=== PATIENT | female | born 1975 | race African-American/Black ===

== ENCOUNTER 2019-10-17 10:21 | Emergency (ER) | payer OTHER ==
[~2019-10-17] VITALS: Ht 162.6 cm; Wt 94.9 kg
--- OUTSIDE RECORDS SUMMARY | 2019-10-17 10:24 | XMS REPORT ---
Author Author Toma Mckeon [facility] eClinicalWorks Address Unknown Phone Unavailable Care Team Providers Care Dramatic Director Name Role Phone Toma Mckeon CP Unavailable Allergies, Adverse Reactions, Alerts Substance Reaction Event Type N.K.D.A. Info Not Available Non Drug Allergy Problems Problem Type Condition Code Onset Dates Condition Status Assessment Current smoker F17.200 Active Assessment Encounter for smoking cessation counseling Z71.6 Active Assessment HLD (hyperlipidemia) E78.5 Active Assessment Anemia, unspecified type D64.9 Active Assessment Vitamin D deficiency E55.9 Active Assessment BMI 37.0-37.9, adult Z68.37 Active Assessment Diabetic neuropathy E11.40 Active Assessment Uncontrolled type 2 diabetes mellitus with hyperglycemia E11.65 Active Assessment Bilateral edema of lower extremity R60.0 Active Problem Malignant neoplasm of unspecified site of unspecified female breast C50.919 Active Problem Screening for STD (sexually transmitted disease) Z11.3 Active Problem Encounter for gynecological examination (general) (routine) without abnormal findings Z01.419 Active Problem Major depressive disorder with single episode, remission status unspecified F32.9 Active Problem Acute vaginitis N76.0 Active Problem Fracture T14.8 Active Problem BMI 37.0-37.9, adult Z68.37 Active Problem Uncontrolled type 2 diabetes mellitus with hyperglycemia E11.65 Active Problem Vitamin D deficiency E55.9 Active Problem Personal history of malignant neoplasm of breast Z85.3 Active Problem Type 2 diabetes mellitus without complication, unspecified residential insulin use status E11.9 Active Problem Bilateral edema of lower extremity R60.0 Active Problem Obesity (BMI 30-39.9) E66.9 Active Problem Body mass index (BMI) 35.0-35.9, adult Z68.35 Active Problem Right leg pain M79.604 Active Problem Anemia, unspecified type D64.9 Active Problem Encounter for smoking cessation counseling Z71.6 Active Problem HLD (hyperlipidemia) E78.5 Active Problem Current smoker F17.200 Active Problem Depression F32.9 Active Problem Dietary noncompliance Z91.11 Active Problem Encounter for screening for malignant neoplasm of cervix Z12.4 Active Problem Screening for HIV (human immunodeficiency virus) Z11.4 Active Problem Diabetic neuropathy E11.40 Active Problem Breast mass, right N63 Active Medications Medication Code System Code Instructions Start Date End Date Status Dosage Flagyl [facility] [address]-22 500 MG Orally twice a day Apr 23, 2018 Active 1 tablet Paxil [facility] [address]-65 20 MG Orally Once a day February 07, 2018 Active 1 tablet in the morning Pioglitazone HCl [facility] [address]-44 45 MG Orally Once a day January 11, 2019 Active 1 tablet Januvia [facility] [address]-78 50 MG Orally twice a day January 11, 2019 Active 1 tablet Atorvastatin Calcium [facility] [address]-45 40 MG Orally Once a day Active 1 tablet Lisinopril [facility] [address]-07 2.5 MG Orally Once a day Active 1 tablet GlipiZIDE [facility] [address]-90 10 MG Orally ever morning with breakfast Inactive 1 tablet Tamiflu [facility] [address]-52 75 MG Orally twice a day Aug 22, 2017 Active 1 tablet MetroGel-Vaginal [facility] [address]-04 0.75 % Vaginal Once a day Aug 29, 2017 Active 1 application at bedtime Insulin Pen Needle [facility] 0 31G X 5 MM capillary stick twice a day Active as directed Gabapentin [facility] [address]-45 300 MG Orally three times a day Active 1 capsule Vitamin D3 [facility] [address] 07196 UNIT Orally once a week January 11, 2019 Active as directed NovoLog Flexpen [facility] [address]-63 100 UNIT/ML Subcutaneous twice a day Active 20 unit in am and 10 units in pm Lantus SoloStar [facility] [address]-53 100 UNIT/ML Subcutaneous once a day January 11, 2019 Active 15 units Results No Known Results Summary Purpose eClinicalWorks Submission
--- OUTSIDE RECORDS SUMMARY | 2019-10-17 10:24 | XMS REPORT ---
Author Author Mihaela Verma Organization eClinicalWorks Address Unknown Phone Unavailable Care Team Providers Care Auto Motor Mechanic Name Role Phone Mihaela Verma CP Unavailable Allergies No Known Allergies Problems Problem Type Condition Code Onset Dates Condition Status Problem Breast mass, right N63 Active Problem Screening for HIV (human immunodeficiency virus) Z11.4 Active Problem Encounter for screening for malignant neoplasm of cervix Z12.4 Active Problem Right leg pain M79.604 Active Problem Fracture T14.8 Active Problem Body mass index (BMI) 35.0-35.9, adult Z68.35 Active Problem Encounter for gynecological examination (general) (routine) without abnormal findings Z01.419 Active Problem Screening for STD (sexually transmitted disease) Z11.3 Active Problem BMI 37.0-37.9, adult Z68.37 Active Problem Acute vaginitis N76.0 Active Problem Obesity (BMI 30-39.9) E66.9 Active Problem Type 2 diabetes mellitus without complication, unspecified assistant terminal manager insulin use status E11.9 Active Problem Malignant neoplasm of unspecified site of unspecified female breast C50.919 Active Problem Major depressive disorder with single episode, remission status unspecified F32.9 Active Problem Dietary noncompliance Z91.11 Active Problem HLD (hyperlipidemia) E78.5 Active Problem Personal history of malignant neoplasm of breast Z85.3 Active Problem Current smoker F17.200 Active Problem Depression F32.9 Active Problem Diabetic neuropathy E11.40 Active Medications No Known Medications Results No Known Results Summary Purpose eClinicalWorks Submission
--- OUTSIDE RECORDS SUMMARY | 2019-10-17 10:24 | XMS REPORT ---
Author Author Mihaela Verma eClinical[employer] Address Unknown Phone Unavailable Care Team Providers Care Biophysics Professor Name Role Phone Mihaela Verma Unavailable Allergies, Adverse Reactions, Alerts Substance Reaction Event Type N.K.D.A. Info Not Available Non Drug Allergy Problems Problem Type Condition Code Onset Dates Condition Status Assessment Screening for thyroid disorder Z13.29 Active Assessment Other fatigue R53.83 Active Assessment Diabetic neuropathy E11.40 Active Problem Current smoker F17.200 Active Problem Diabetic neuropathy E11.40 Active Assessment Body mass index (BMI) 35.0-35.9, adult Z68.35 Active Problem Breast mass, right N63 Active Problem Screening for HIV (human immunodeficiency virus) Z11.4 Active Problem Encounter for screening for malignant neoplasm of cervix Z12.4 Active Problem Right leg pain M79.604 Active Problem Fracture T14.8 Active Assessment Type 2 diabetes mellitus without complication, unspecified intermodal dispatcher insulin use status E11.9 Active Assessment HLD (hyperlipidemia) E78.5 Active Problem Body mass index (BMI) 35.0-35.9, adult Z68.35 Active Assessment Noncompliance with medication regimen Z91.14 Active Problem Encounter for gynecological examination (general) (routine) without abnormal findings Z01.419 Active Problem Screening for STD (sexually transmitted disease) Z11.3 Active Problem BMI 37.0-37.9, adult Z68.37 Active Problem Acute vaginitis N76.0 Active Problem Obesity (BMI 30-39.9) E66.9 Active Problem Type 2 diabetes mellitus without complication, unspecified residential insulin use status E11.9 Active Problem Malignant neoplasm of unspecified site of unspecified female breast C50.919 Active Problem Major depressive disorder with single episode, remission status unspecified F32.9 Active Problem Dietary noncompliance Z91.11 Active Problem HLD (hyperlipidemia) E78.5 Active Problem Personal history of malignant neoplasm of breast Z85.3 Active Problem Depression F32.9 Active Medications Medication Code System Code Instructions Start Date End Date Status Dosage Tamiflu NDC [address]-27 75 MG Orally twice a day Aug 22, 2017 Active 1 tablet GlipiZIDE [facility] [address]-06 10 MG Orally ever morning with breakfast Active 1 tablet Atorvastatin Calcium [facility] [address]-72 40 MG Orally Once a day Active 1 tablet Lisinopril [facility] [address]-66 2.5 MG Orally Once a day Active 1 tablet MetroGel-Vaginal [facility] [address]-82 0.75 % Vaginal Once a day Aug 29, 2017 Active 1 application at bedtime Gabapentin [facility] [address]-12 300 MG Orally three times a day Active 1 capsule Paxil [facility] [address]-34 20 MG Orally Once a day February 07, 2018 Active 1 tablet in the morning Flagyl [facility] [address]-23 500 MG Orally twice a day Apr 23, 2018 Active 1 tablet Insulin Pen Needle [facility] 0 31G X 5 MM twice a day Active as directed NovoLog Flexpen [facility] [address]-95 100 UNIT/ML Subcutaneous twice a day Active 20 unit in am and 10 units in pm Results No Known Results Summary Purpose eClinicalWorks Submission
--- OUTSIDE RECORDS SUMMARY | 2019-10-17 10:24 | XMS REPORT ---
Author Author Corina Braun Organization eClinicalWorks Address Unknown Phone Unavailable Care Team Providers Care Rugby League Footballer Name Role Phone Corina Braun CP Unavailable Allergies No Known Allergies Problems Problem Type Condition Code Onset Dates Condition Status Assessment Patient left without being seen Z53.21 Active Problem Malignant neoplasm of unspecified site of unspecified female breast C50.919 Active Problem Major depressive disorder with single episode, remission status unspecified F32.9 Active Problem Encounter for gynecological examination (general) (routine) without abnormal findings Z01.419 Active Problem Acute vaginitis N76.0 Active Problem Obesity (BMI 30-39.9) E66.9 Active Problem BMI 37.0-37.9, adult Z68.37 Active Problem Right leg pain M79.604 Active Problem Fracture T14.8 Active Problem Bilateral edema of lower extremity R60.0 Active Problem Uncontrolled type 2 diabetes mellitus with hyperglycemia E11.65 Active Problem Depression F32.9 Active Problem Personal history of malignant neoplasm of breast Z85.3 Active Problem Patient left without being seen Z53.21 Active Problem Type 2 diabetes mellitus without complication, unspecified shelter insulin use status E11.9 Active Problem Encounter for smoking cessation counseling Z71.6 Active Problem Body mass index (BMI) 35.0-35.9, adult Z68.35 Active Problem Vitamin D deficiency E55.9 Active Problem Anemia, unspecified type D64.9 Active Problem Current smoker F17.200 Active Problem Diabetic neuropathy E11.40 Active Problem Dietary noncompliance Z91.11 Active Problem HLD (hyperlipidemia) E78.5 Active Problem Screening for HIV (human immunodeficiency virus) Z11.4 Active Problem Screening for STD (sexually transmitted disease) Z11.3 Active Problem Breast mass, right N63 Active Problem Encounter for screening for malignant neoplasm of cervix Z12.4 Active Medications Medication Code System Code Instructions Start Date End Date Status Dosage MetroGel-Vaginal [facility] [address]-05 0.75 % Vaginal Once a day Aug 29, 2017 Active 1 application at bedtime Tamiflu [facility] [address]-59 75 MG Orally twice a day Aug 22, 2017 Active 1 tablet Vitamin D3 [facility] 03[address]16 38299 UNIT Orally once a week January 11, 2019 Active as directed Atorvastatin Calcium [facility] [address]-12 40 MG Orally Once a day Active 1 tablet Pioglitazone HCl [facility] [address]-19 45 MG Orally Once a day January 11, 2019 Active 1 tablet Flagyl [facility] [address]-41 500 MG Orally twice a day Apr 23, 2018 Active 1 tablet Paxil [facility] [address]-89 20 MG Orally Once a day February 07, 2018 Active 1 tablet in the morning Lantus SoloStar [facility] [address]-26 100 UNIT/ML Subcutaneous once a day January 11, 2019 Active 15 units Lisinopril [facility] [address]-89 2.5 MG Orally Once a day Active 1 tablet Gabapentin [facility] [address]-45 300 MG Orally three times a day Active 1 capsule Insulin Pen Needle [facility] 0 31G X 5 MM capillary stick twice a day Active as directed Januvia [facility] [address]-63 50 MG Orally twice a day January 11, 2019 Active 1 tablet NovoLog Flexpen [facility] [address]-20 100 UNIT/ML Subcutaneous twice a day Active 20 unit in am and 10 units in pm Results No Known Results Summary Purpose eClinicalWorks Submission
--- OUTSIDE RECORDS SUMMARY | 2019-10-17 10:24 | XMS REPORT ---
Author Author Katerin Hilario eClinicalWorks Address Unknown Phone Unavailable Care Team Providers Care Account Officer Name Role Phone Katerin Hilario CP Unavailable Allergies, Adverse Reactions, Alerts Substance Reaction Event Type N.K.D.A. Info Not Available Non Drug Allergy Problems Problem Type Condition Code Onset Dates Condition Status Problem Depression F32.9 Active Problem HLD (hyperlipidemia) E78.5 Active Problem Dietary noncompliance Z91.11 Active Problem Screening for STD (sexually transmitted disease) Z11.3 Active Assessment Malignant neoplasm of unspecified site of unspecified female breast C50.919 Active Problem Screening for HIV (human immunodeficiency virus) Z11.4 Active Problem Encounter for gynecological examination (general) (routine) without abnormal findings Z01.419 Active Problem Diabetic neuropathy E11.40 Active Problem Current smoker F17.200 Active Problem Encounter for screening for malignant neoplasm of cervix Z12.4 Active Problem Breast mass, right N63 Active Assessment Screening for HIV (human immunodeficiency virus) Z11.4 Active Assessment Screening for STD (sexually transmitted disease) Z11.3 Active Assessment Breast mass, right N63 Active Assessment Encounter for screening for malignant neoplasm of cervix Z12.4 Active Problem Major depressive disorder with single episode, remission status unspecified F32.9 Active Problem Obesity (BMI 30-39.9) E66.9 Active Assessment Encounter for gynecological examination (general) (routine) without abnormal findings Z01.419 Active Problem Type 2 diabetes mellitus without complication, unspecified retirement insulin use status E11.9 Active Problem Malignant neoplasm of unspecified site of unspecified female breast C50.919 Active Problem Personal history of malignant neoplasm of breast Z85.3 Active Medications Medication Code System Code Instructions Start Date End Date Status Dosage Insulin Pen Needle [facility] 0 31G X 5 MM twice [place] [address]-98 20 MG Orally Once a day February 07, 2018 Active 1 tablet in [place] [address]-11 0.75 % Vaginal Once a day Aug 29, 2017 Active 1 application at bedtime Lisinopril [facility] [address]-49 2.5 MG Orally Once a day February 07, 2018 Active 1 tablet GlipiZIDE [facility] [address]-97 10 MG Orally ever morning with breakfast Active 1 tablet Atorvastatin Calcium [facility] [address]-86 40 MG Orally Once a day February 07, 2018 Active 1 tablet Gabapentin [facility] [address]-07 300 MG Orally twice a day Active 1 capsule Tamiflu [facility] [address]-50 75 MG Orally twice a day Aug 22, 2017 Active 1 tablet NovoLog Flexpen [facility] [address]-13 100 UNIT/ML Subcutaneous twice a day Active 20 unit in am and 10 units in pm Results No Known Results Summary Purpose eClinicalWorks Submission
--- OUTSIDE RECORDS SUMMARY | 2019-10-17 10:24 | XMS REPORT ---
Author Author Katerin Hilario eClinicalWorks Address Unknown Phone Unavailable Care Team Providers Care Crystal Machining Coordinator Name Role Phone Katerin Hilario CP Unavailable Allergies, Adverse Reactions, Alerts Substance Reaction Event Type N.K.D.A. Info Not Available Non Drug Allergy Problems Problem Type Condition Code Onset Dates Condition Status Problem HLD (hyperlipidemia) E78.5 Active Problem Diabetic neuropathy E11.40 Active Problem Current smoker F17.200 Active Problem Acute vaginitis N76.0 Active Problem Encounter for gynecological examination (general) (routine) without abnormal findings Z01.419 Active Problem BMI 37.0-37.9, adult Z68.37 Active Problem Encounter for screening for malignant neoplasm of cervix Z12.4 Active Problem Breast mass, right N63 Active Problem Screening for STD (sexually transmitted disease) Z11.3 Active Problem Screening for HIV (human immunodeficiency virus) Z11.4 Active Assessment Acute vaginitis N76.0 Active Problem Malignant neoplasm of unspecified site of unspecified female breast C50.919 Active Assessment Major depressive disorder with single episode, remission status unspecified F32.9 Active Assessment BMI 37.0-37.9, adult Z68.37 Active Problem Type 2 diabetes mellitus without complication, unspecified intermediate accountant insulin use status E11.9 Active Problem Personal history of malignant neoplasm of breast Z85.3 Active Problem Major depressive disorder with single episode, remission status unspecified F32.9 Active Problem Depression F32.9 Active Problem Obesity (BMI 30-39.9) E66.9 Active Problem Dietary noncompliance Z91.11 Active Medications Medication Code System Code Instructions Start Date End Date Status Dosage NovoLog Flexpen [facility] [address]-28 100 UNIT/ML Subcutaneous twice a day Active 20 unit in am and 10 units in pm GlipiZIDE [facility] [address]-29 10 MG Orally ever morning with breakfast Active 1 tablet [address]ax[address] [facility] [address]-50 20 MG Orally Once a day February 07, 2018 Active 1 tablet in the morning Atorvastatin Calcium [facility] [address]-28 40 MG Orally Once a day February 07, 2018 Active 1 tablet Flagyl [facility] [address]-97 500 MG Orally twice a day Apr 23, 2018 Active 1 tablet Lisinopril [facility] [address]-06 2.5 MG Orally Once a day February 07, 2018 Active 1 tablet MetroGel-Vaginal [facility] [address]-68 0.75 % Vaginal Once a day Aug 29, 2017 Active 1 application at bedtime Tamiflu [facility] [address]-84 75 MG Orally twice a day Aug 22, 2017 Active 1 tablet Gabapentin [facility] [address]-37 300 MG Orally twice a day Active 1 capsule Insulin Pen Needle [facility] 0 31G X 5 MM twice a day Active as directed Results No Known Results Summary Purpose eClinicalWorks Submission
--- OUTSIDE RECORDS SUMMARY | 2019-10-17 10:24 | XMS REPORT ---
Author Author Corina Braun eClinicalWorks Address Unknown Phone Unavailable Care Team Providers Care Oracle Ebs Developer Name Role Phone Corina Braun CP Unavailable Allergies, Adverse Reactions, Alerts Substance Reaction Event Type N.K.D.A. Info Not Available Non Drug Allergy Problems Problem Type Condition Code Onset Dates Condition Status Problem Diabetic neuropathy E11.40 Active Problem Encounter for screening for malignant neoplasm of cervix Z12.4 Active Problem Breast mass, right N63 Active Problem Fracture T14.8 Active Assessment Right leg pain M79.604 Active Problem BMI 37.0-37.9, adult Z68.37 Active Problem Right leg pain M79.604 Active Problem Screening for STD (sexually transmitted disease) Z11.3 Active Problem Screening for HIV (human immunodeficiency virus) Z11.4 Active Problem Acute vaginitis N76.0 Active Problem Encounter for gynecological examination (general) (routine) without abnormal findings Z01.419 Active Problem Major depressive disorder with single episode, remission status unspecified F32.9 Active Problem Obesity (BMI 30-39.9) E66.9 Active Assessment Fracture T14.8 Active Problem Malignant neoplasm of unspecified site of unspecified female breast C50.919 Active Problem Depression F32.9 Active Problem Dietary noncompliance Z91.11 Active Problem Type 2 diabetes mellitus without complication, unspecified termite 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 insulin use status E11.9 Active Problem HLD (hyperlipidemia) E78.5 Active Problem Personal history of malignant neoplasm of breast Z85.3 Active Problem Current smoker F17.200 Active Medications Medication Code System Code Instructions Start Date End Date Status Dosage GlipiZIDE [facility] [address]-66 10 MG Orally ever morning with breakfast Active 1 tablet Lisinopril [facility] [address]-94 2.5 MG Orally Once a day February 07, 2018 Active 1 tablet MetroGel-Vaginal [facility] [address]-08 0.75 % Vaginal Once a day Aug 29, 2017 Active 1 application at bedtime Paxil [facility] [address]-30 20 MG Orally Once a day February 07, 2018 Active 1 tablet in the morning Gabapentin [facility] [address]-43 300 MG Orally twice a day Active 1 capsule NovoLog Flexpen [facility] [address]-27 100 UNIT/ML Subcutaneous twice a day Active 20 unit in am and 10 units in pm Tamiflu [facility] [address]-36 75 MG Orally twice a day Aug 22, 2017 Active 1 tablet Flagyl [facility] [address]-11 500 MG Orally twice a day Apr 23, 2018 Active 1 tablet Atorvastatin Calcium [facility] [address]-71 40 MG Orally Once a day February 07, 2018 Active 1 tablet Insulin Pen Needle [facility] 0 31G X 5 MM twice a day Active as directed Results No Known Results Summary Purpose eClinicalWorks Submission
--- OUTSIDE RECORDS SUMMARY | 2019-10-17 10:24 | XMS REPORT ---
Author Author [facility] Address Unknown Phone Unavailable Care Team Providers Care Flue Lining Dipper Name Role Phone ADILIA NAOMY Unavailable Unavailable Souleymane REA Unavailable Unavailable ISAÍAS ZAPATA Unavailable Unavailable Maral CARRILLO Unavailable Unavailable KATHERYN RICO Unavailable Unavailable Payers Payer Name Policy Type Policy Number Effective Date Expiration Date Problems This patient has no known problems. Allergies, Adverse Reactions, Alerts Allergy Name Allergy Type Status Severity Reaction(s) Onset Date Inactive Date Treating Clinician Comments No Known Allergies DA Active U 2018-10-05 00:00:00 No Known Allergies DA Active U 2015-04-08 00:00:00 Medications This patient has no known medications. Encounters Start Date/Time End Date/Time Encounter Type Admission Type Attending Clinicians Care Facility Care Department Encounter ID 2019-01-01 23:35:00 2019-01-01 19:18:00 Inpatient E [facility] [id number] Results Test Description Test Time Test Comments Text Results Atomic Results Result Comments - CT ABD PELVIS W/CONT 2019-10-11 04:13:00 Name: NICOLE SPRING [facility] : 1975 Age/S: 44 / F [address] Unit #: [id number] Loc: [place] [address] Phys: Colin Perry MD Acct: [id number] Dis Date: Status: REG ER PHONE #: [phone] Exam Date: 10/11/2019 0355 FAX #: Reason: abd pain EXAMS: CPT: [id number] CT ABD PELVIS W/CONT 35545 LOCATION: Q15 HISTORY: 44-year-old female who presents with abdominal pain. COMMENT: Axial CT imaging of this patient's abdomen and pelvis was obtained with IV contrast. Coronal and sagittal soft tissue reconstructions were included. An older examination obtained December 13, 2016 is available for comparison. CONTRAST: 100 mL of Isovue-300 nonionic contrast was injected into the left antecubital vein. The serum creatinine level was 0.9 and the estimated GFR was greater than 60 mL per minute. One or more of the following dose reduction techniques are used: Automated exposure control, adjustment of the mA and/or kV according the patient size, and/or utilization of iterative reconstruction technique. DLP: 920.10 mGy-cm FINDINGS: The lung bases are clear. The cardiac silhouette is unremarkable. The liver, spleen, pancreas, adrenal glands, and gallbladder are unremarkable. The left renal collecting system and ureter demonstrate evidence of pelvocaliectasis with hydroureter. No filling defect is seen in the ureter but the distention extends to the urinary bladder. This finding is not sig nificantly changed from the previous study. No cortical masses are seen in either kidney and no cysts are present. The right renal collecting system is unremarkable. The upper intestinal tract and the small intestine are unremarkable. A normal-appearing appendix is seen. The colon is unremarkable. No ascites is seen and no adenopathy is present. In the pelvis the urinary bladder is unremarkable. The uterus is seen. PAGE 1 Signed Report (CONTINUED) Name: NICOLE SPRING [facility] : 1975 Age/S: 44 / F [address] Unit #: [id number] Loc: [place] [address] Phys: Coiln Perry MD Acct: [id number] Dis Date: Status: REG ER PHONE #: [phone] Exam Date: 10/11/2019 4278 FAX #: Reason: abd pain EXAMS: CPT: [id number] CT ABD PELVIS W/CONT 02498 <Continued> The ovaries are not clearly seen. The vascular anatomy is unremarkable. The musculoskeletal anatomy is unre markable. IMPRESSION: There are no acute findings seen in this patient's abdomen or pelvis on this CT examination. Please see above for details. at 0413 Reported and signed by: Jan Alexander M.D. CC: Colin Perry MD Technologist:RT Orestes(R)(CT) CTDI: DLP: Trnscb Date/Time: 10/11/2019 (0413) [email or web address] Orig Print D/T: S: 10/11/2019 (0239) PAGE 2 Signed Report UR HCG QUAL 2019-10-11 03:19:00 UR HCG QUAL (test code=HCGQLU) NEGATIVE NEGATIVE - DUP VEIN UNI [id number] 03:03:00 Name: NICOLE SPRING [facility] : 1975 Age/S: 44 / F [address] [address] Unit #: [id number] Loc: [place] [address] Phys: Colin Perry MD Acct: [id number] Dis Date: Status: REG ER PHONE #: [phone] Exam Date: 10/11/2019 0232 FAX #: Reason: Right leg pain; Prior h/o DVT EXAMS: CPT: [id number] [place] [address] LOCATION: Q15 HISTORY: 44-year-old female who presents with right leg pain. The patient has a history of prior deep venous thrombosis. COMMENT: Real-time ultrasound imaging of the venous anatomy in this patient's right lower extremity was obtained with grayscale, color-flow, and Doppler waveform imaging techniques. The common femoral vein, superficial femoral vein, popliteal vein, proximal and distal posterior tibial vein were included in the study. FINDINGS: The anatomy exhibits normal compressibility on the grayscale study. No defects are observed in the color flow study. Appropriate waveform response is are noted on the Doppler study during quiet respiration and augmentation maneuvers. IMPRESSION: There is no sonographic evidence of venous thrombosis in this patient's right leg. at 0303 Reported and signed by: Jan Alexander M.D. CC: Colin Perry MD Technologist: RT Марина(R),RDMS(AB) Trnscb Date/Time: 10/11/2019 (302) [email or web address] PAGE 1 Signed Report Name: NICOLE SPRING : 1975 Age/S: 44 / F [address] [address] #: [id number] Loc: [place] [address] Phys: Colin Perry MD Acct: [id number] Dis Date: Status: REG ER PHONE #: [phone] Exam Date: 10/11/2019 0232 FAX #: Reason: Right leg pain; Prior h/o DVT EXAMS: CPT: [id number] [place] [address] <Continued> Orig Print D/T: S: 10/11/2019 (305) Probe: PAGE 2 Signed Report BASIC METABOLIC [id number] 02:41:00* Test Item Value Reference Range Comments SODIUM (test code=NA) 137 mmol/L 134-147 POTASSIUM (test code=K) 3.6 mmol/L 3.4-5.0 CHLORIDE (test code=CL) 106 mmol/L 100-108 CARBON DIOXIDE (test code=CO2) 23 mmol/L 21-32 ANION GAP (test code=GAP) 8.0 GAP calc 4.0-15.0 GLUCOSE (test code=GLU) 342 MG/DL 70-110 BLOOD UREA NITROGEN (test code=BUN) 9 MG/DL 7-18 GLOMERULAR FILTRATION RATE (test code=GFR) >=60 max estimate estGFR >60 CREATININE (test code=CREAT) 0.9 MG/DL 0.6-1.0 CALCIUM (test code=CA) 8.8 MG/DL 8.5-10.1 HEPATIC FUNCTION [id number] 02:41:00* Test Item Value Reference Range Comments TOTAL PROTEIN (test code=PROT) 7.6 G/DL 6.4-8.2 ALBUMIN (test code=ALB) 3.5 G/DL 3.4-5.0 BILIRUBIN TOTAL (test code=BILT) 0.20 MG/DL 0.2-1.2 BILIRUBIN DIRECT (test code=BILD) < 0.10 MG/DL 0.00-0.30 BILIRUBIN INDIRECT (test code=BILIND) 0.10 MG/DL 0.2-1.2 SGOT/AST (test code=AST) 7 Unit/L 15-37 SGPT/ALT (test code=ALT) 17 Unit/L 12-78 ALKALINE PHOSPHATASE TOTAL (test code=ALKP) 111 Unit/L 45-117 [id number] 02:41:00* Test Item Value Reference Range Comments LIPASE (test code=LIP) 127 Unit/L 114-286 UA RFLX MICR CULT IF [id number] 02:30:00* Test Item Value Reference Range Comments UA COLOR (test code=COLU) YELLOW discript YEL/STRAW UA APPEARANCE (test code=APPU) CLEAR discript CLEAR UA GLUCOSE DIPSTICK (test code=DGLUU) 3+ mg/dL NEG UA BILIRUBIN DIPSTICK (test code=BILU) NEGATIVE mg/dL NEG UA KETONE DIPSTICK (test code=KETU) NEGATIVE mg/dL NEG UA SPECIFIC GRAVITY (test code=SGU) >=1.030 SG 1.005-1.030 UA BLOOD DIPSTICK (test code=ADAM) NEGATIVE mg/DL NEG UA PH DIPSTICK (test code=MARJORIE) <=5.0 pH UNITS 5.0-7.0 UA PROTEIN DIPSTICK (test code=PROU) TRACE mg/dL NEG UA UROBILINIOGEN DIPSTICK (test code=URO) 0.2 mg/dL <2.0 UA NITRITE DIPSTICK (test code=YAZMIN) NEGATIVE SCREEN NEG UA LEUKOCYTE ESTERASE DIPSTICK (test code=LEUU) NEGATIVE Leuk/mcL NEGATIVE UA WBC (test code=WBCU) 0-1 #WBC/HPF 0-3 UA RBC (test code=RBCU) 0-1 #RBC/HPF 0-3 UA BACTERIA (test code=BACU) NONE SEEN /HPF NONE-TRACE UA SQUAMOUS CELLS (test code=SQU) 1+ /HPF NONE UA CULTURE NEEDED? (test code=UACULT) NO, WBC<10 Criteria Culture CHK SOURCE OF URINE: CLEAN CATCHIndication for culture: Flank PainBASIC METABOLIC [id number] 02:22:00* Test Item Value Reference Range Comments SODIUM (test code=NA) 137 mmol/L 134-147 POTASSIUM (test code=K) 3.6 mmol/L 3.4-5.0 CHLORIDE (test code=CL) 106 mmol/L 100-108 CARBON DIOXIDE (test code=CO2) 23 mmol/L 21-32 ANION GAP (test code=GAP) 8.0 GAP calc 4.0-15.0 GLUCOSE (test code=GLU) 342 MG/DL 70-110 BLOOD UREA NITROGEN (test code=BUN) 9 MG/DL 7-18 GLOMERULAR FILTRATION RATE (test code=GFR) estGFR >60 CREATININE (test code=CREAT) MG/DL 0.6-1.0 CALCIUM (test code=CA) 8.8 MG/DL 8.5-10.1 HEPATIC FUNCTION [id number] 02:22:00* Test Item Value Reference Range Comments TOTAL PROTEIN (test code=PROT) G/DL 6.4-8.2 ALBUMIN (test code=ALB) G/DL 3.4-5.0 BILIRUBIN TOTAL (test code=BILT) MG/DL 0.2-1.2 BILIRUBIN DIRECT (test code=BILD) MG/DL 0.00-0.30 BILIRUBIN INDIRECT (test code=BILIND) MG/DL 0.2-1.2 SGOT/AST (test code=AST) Unit/L 15-37 SGPT/ALT (test code=ALT) Unit/L 12-78 ALKALINE PHOSPHATASE TOTAL (test code=ALKP) Unit/L 45-117 [id number] 02:22:00* Test Item Value Reference Range Comments LIPASE (test code=LIP) 127 Unit/L 114-286 CBC W/AUTO [id number] 02:11:00* Test Item Value Reference Range Comments WHITE BLOOD CELL (test code=WBC) 7.4 K/mm3 3.5-11.0 RED BLOOD CELL (test code=RBC) 4.98 M/mm3 4.70-6.10 HEMOGLOBIN (test code=HGB) 11.5 G/DL 10.4-14.9 HEMATOCRIT (test code=HCT) 36.9 % 31.5-44.1 MEAN CELL VOLUME (test code=MCV) 74.1 Fl 84.5-98.6 MEAN CELL HGB (test code=MCH) 23.1 pg 27.0-34.2 MEAN CELL HGB CONCETRATION (test code=MCHC) 31.2 G/DL 31.5-34.0 RED CELL DISTRIBUTION WIDTH (test code=RDW) 13.3 SD 11.5-14.5 PLATELET COUNT (test code=PLT) 174.0 K/mm3 150-450 MEAN PLATELET VOLUME (test code=MPV) 12.00 fL 7.0-10.5 NEUTROPHIL % (test code=NT%) 66.8 % 40-76 LYMPHOCYTE % (test code=LY%) 24.3 % 20.5-51.1 MONOCYTE % (test code=MO%) 6.8 % 1.7-9.3 EOSINOPHIL % (test code=EO%) 2.0 % 0.0-6.0 BASOPHIL % (test code=BA%) 0.1 % 0.0-2.0 NEUTROPHIL # (test code=NT#) 4.93 K/mm3 1.8-7.6 LYMPHOCYTE # (test code=LY#) 1.8 K/mm3 0.6-3.2 MONOCYTE # (test code=MO#) 0.5 K/mm3 0.3-1.1 EOSINOPHIL # (test code=EO#) 0.2 K/mm3 0.0-0.4 BASOPHIL # (test code=BA#) 0.0 K/mm3 0.0-0.1 MANUAL DIFF REQUIRED (test code=MDIFF) NO DIFF/SCN CRITERIA UA RFLX MICR CULT IF [id number] 02:11:00* Test Item Value Reference Range Comments UA COLOR (test code=COLU) YELLOW discript YEL/STRAW UA APPEARANCE (test code=APPU) CLEAR discript CLEAR UA GLUCOSE DIPSTICK (test code=DGLUU) 3+ mg/dL NEG UA BILIRUBIN DIPSTICK (test code=BILU) NEGATIVE mg/dL NEG UA KETONE DIPSTICK (test code=KETU) NEGATIVE mg/dL NEG UA SPECIFIC GRAVITY (test code=SGU) >=1.030 SG 1.005-1.030 UA BLOOD DIPSTICK (test code=ADAM) NEGATIVE mg/DL NEG UA PH DIPSTICK (test code=MARJORIE) <=5.0 pH UNITS 5.0-7.0 UA PROTEIN DIPSTICK (test code=PROU) TRACE mg/dL NEG UA UROBILINIOGEN DIPSTICK (test code=URO) 0.2 mg/dL <2.0 UA NITRITE DIPSTICK (test code=YAZMIN) NEGATIVE SCREEN NEG UA LEUKOCYTE ESTERASE DIPSTICK (test code=LEUU) NEGATIVE Leuk/mcL NEGATIVE UA CULTURE NEEDED? (test code=UACULT) Criteria Culture CHK SOURCE OF URINE: CLEAN CATCHIndication for culture: Flank PainCT, ABDOMEN 2019-08-11 12:59:00FINAL REPORT TECHNIQUE: CT of the abdomen and pelvis WITH intravenous contrast and WITHOUT oral contrast. Dose modulation, iterative reconstruction, and/or weight-based adjustment of the mA/kV was utilized to reduce the radiation dose to as low as reasonably achievable. INDICATION: LLQ pain, back pain. COMPARISON: CTs dating back to 06/01/2018. FINDINGS: LOWER THORAX: Bibasilar subsegmental atelectasis. HEPATOBILIARY: No focal hepatic lesions. Gallbladder is unremarkable. No biliary ductal dilatation.SPLEEN: No splenomegaly.PANCREAS: No focal masses or ductal dilatation. ADRENALS: No adrenal nodules.KIDNEYS/URETERS: Mild left hydronephrosis. There is hydroureter to the level of the cervix. No stones or masses.PELVIC ORGANS/BLADDER: The urinary bladder wall is diffusely thickened. There is gas in the endometrium. PERITONEUM/RETROPERITONEUM: No free air or fluid.LYMPH NODES: No lymphadenopathy.VESSELS: Unremarkable. GI TRACT: No distention or wall thickening. The appendix normal. BONES AND SOFT TISSUES: Prior midline pelvic incision. There are some linear opacity in this area which is most likely due to scar. Scar endometriosis is also possible. IMPRESSION: 1. There is mild left hydronephrosis with a transition of the ureter at the level o f the cervix. This is most likely related to prior surgery or endometriosis with scar in this region. Cervical cancer with invasion of the left distal ureter is considered unlikely but possible. A gynecologic consultation is recommended for further evaluation. If further imaging is necessary, consider MRI. 2.There is a fairly thick scar at the site of a prior midline pelvic incision. Scar endometr iosis should be considered. 3.The diffuse thickening of the urinary bladder wall is nonspecific but could be due to cystitis. 4.The gas in the endometrium is no nspecific. This could be due to prior instrumentation, recent sexual intercourse , or endometritis. Signed: Jayesh Beebe MDReport Verified Date/Time: 08/11/2019 1 2:59:54 Reading Location: [facility] C013Y CT Body Reading Room U/S, PELVIS, WITH ENDOVAG AND [id number] 12:22:00Reason for exam:->BACK PAINReason for exam:->L pelvic painFINAL REPORT EXAM: Pelvic Ultrasound HISTORY: BACK PAINL pelvic pain COMPARISON: None. TECHNIQUE: Transabdominal and transvaginal grayscale ultrasound of the pelvis with color and spectral Doppler ultrasound of the ovaries. FINDINGS:UTERUS: The uterus measures 12.8 x 4.3 x 6.4 cm. The endometrial echo complex measures 0.4 cm, within normal limits. There is shadowing within the uterus corresponds to air seen on concurrent CTA. OVARIES/ADNEXA: Not visualized due to patient body habitus. Left adnexum 4.3 x 1.3 x 1.5 cm anechoic area. PELVIS: No free fluid. IMPRESSION: 1. Intrauterine air. Recommend correlation with history.2. Indeterminate left adnexum 4.3 cm anechoic area could represent hydrosalpinx in the appropriate clinical scenario. Consider MRI if clinically indicated for further evaluation.3. Ovaries are not visualized. Signed: Valentino Villarreal MDReport Verified Date/Time: 08/11/2019 12:22:23 Reading Location: [facility] C013W Consult Reading Room ALYSIS W/ REFLEX URINE [id number] 11:04:00* Test Item Value Reference Range Comments COLOR (BEAKER) (test iieh=101) Yellow CLARITY (BEAKER) (test jski=222) Clear SPECIFIC GRAVITY UA (BEAKER) (test macr=596) 1.025 1.001-1.035 PH UA (BEAKER) (test hpqi=327) 5.5 5.0-8.0 PROTEIN UA (BEAKER) (test onmn=015) 100 mg/dL Negative GLUCOSE UA (BEAKER) (test xlwn=185) 250 mg/dL Negative KETONES UA (BEAKER) (test efdg=440) Negative Negative BILIRUBIN UA (BEAKER) (test twwd=547) Negative Negative BLOOD UA (BEAKER) (test ouqi=116) Negative Negative NITRITE UA (BEAKER) (test plvt=493) Negative Negative LEUKOCYTE ESTERASE UA (BEAKER) (test ivfs=558) Negative Negative UROBILINOGEN UA (BEAKER) (test rbxc=616) 0.2 mg/dL 0.2-1.0 BACTERIA (BEAKER) (test wsgw=608) Occasional MUCUS (BEAKER) (test ecin=5811) Few RBC UA-MANUAL (BEAKER) (test zhhm=0819) <5 /HPF WBC UA-MANUAL (BEAKER) (test jquh=6734) <5 /HPF SQUAMOUS EPITHELIAL MANUAL (BEAKER) (test orac=6080) <5 /HPF SOURCE(BEAKER) (test djrn=0036) SCREEN, [id number] 11:01:00* Test Item Value Reference Range Comments TEST URINE (BEAKER) (test ydil=013) Negative COMPREHENSIVE METABOLIC [id number] 10:52:00* Test Item Value Reference Range Comments TOTAL PROTEIN (BEAKER) (test noxe=069) 7.5 gm/dL 6.0-8.5 ALBUMIN (BEAKER) (test nark=8096) 3.8 g/dL 3.5-5.0 ALKALINE PHOSPHATASE (BEAKER) (test uyhz=593) 65 U/L 30-115 BILIRUBIN TOTAL (BEAKER) (test zvgp=809) 0.6 mg/dL 0.1-1.2 SODIUM (BEAKER) (test qzxo=943) 135 meq/L 135-148 POTASSIUM (BEAKER) (test cztv=605) 4.7 meq/L 3.6-5.5 CHLORIDE (BEAKER) (test duqm=083) 103 meq/L 98-106 CO2 (BEAKER) (test mttd=220) 26 meq/L 24-32 BLOOD UREA NITROGEN (BEAKER) (test hdgu=698) 11 mg/dL 10-26 CREATININE (BEAKER) (test gwml=651) 0.64 mg/dL 0.50-1.20 GLUCOSE RANDOM (BEAKER) (test aovd=284) 207 mg/dL 70-110 CALCIUM (BEAKER) (test wpmz=002) 8.7 mg/dL 8.5-10.5 AST (SGOT) (BEAKER) (test nnkw=944) 57 U/L 5-40 ALT (SGPT) (BEAKER) (test adqu=486) 28 U/L 5-50 EGFR (BEAKER) (test emts=4904) 122 mL/min/1.73 sq m ESTIMATED GFR IS NOT ACCURATE CREATININE CLEARANCE IN PREDICTING GLOMERULAR FILTRATION RATE. ESTIMATED GFR IS NOT APPLICABLE FOR DIALYSIS PATIENTS. CBC W/PLT COUNT & AUTO [id number] 10:46:00* Test Item Value Reference Range Comments WHITE BLOOD CELL COUNT (BEAKER) (test hajt=526) 2.7 K/ L 4.0-10.0 RED BLOOD CELL COUNT (BEAKER) (test tbqv=919) 4.74 M/ L 4.00-5.00 HEMOGLOBIN (BEAKER) (test uriv=725) 11.1 GM/DL 12.0-15.0 HEMATOCRIT (BEAKER) (test pcgg=858) 34.7 % 36.0-45.0 MEAN CORPUSCULAR VOLUME (BEAKER) (test fobn=894) 73.3 fL 82.0-99.0 MEAN CORPUSCULAR HEMOGLOBIN (BEAKER) (test upkh=911) 23.3 pg 27.0-33.0 MEAN CORPUSCULAR HEMOGLOBIN CONC (BEAKER) (test vcea=688) 31.9 GM/DL 32.0-36.0 RED CELL DISTRIBUTION WIDTH (BEAKER) (test aoxb=339) 15.1 % 10.3-14.2 PLATELET COUNT (BEAKER) (test vqbr=453) 152 K/CU MM 150-430 MEAN PLATELET VOLUME (BEAKER) (test zguy=841) 10.0 fL 6.5-10.5 NEUTROPHILS RELATIVE PERCENT (BEAKER) (test jadn=080) 36 % LYMPHOCYTES RELATIVE PERCENT (BEAKER) (test uxri=044) 50 % MONOCYTES RELATIVE PERCENT (BEAKER) (test bdjc=391) 11 % EOSINOPHILS RELATIVE PERCENT (BEAKER) (test brle=576) 2 % BASOPHILS RELATIVE PERCENT (BEAKER) (test kjuu=198) 1 % NEUTROPHILS ABSOLUTE COUNT (BEAKER) (test vxum=547) 0.99 K/ L 1.80-8.00 LYMPHOCYTES ABSOLUTE COUNT (BEAKER) (test ufmv=670) 1.37 K/ L 1.48-4.50 MONOCYTES ABSOLUTE COUNT (BEAKER) (test nkfl=497) 0.29 K/ L 0.00-1.30 EOSINOPHILS ABSOLUTE COUNT (BEAKER) (test sryh=373) 0.07 K/ L 0.00-0.50 BASOPHILS ABSOLUTE COUNT (BEAKER) (test okof=264) 0.02 K/ L 0.00-0.20 GLUCOSE BEDSIDE [id number] 16:23:00* Test Item Value Reference Range Comments GLUCOSE BEDSIDE TESTING (test code=GLUBED) 154 MG/DL 60-99 - NM MYOCRD SPECT R/S [id number] 14:06:00 Patient Name: NICOLE SPRING Unit No: [id number] EXAMS: CPT CODE: [id number] NM MYOCRD SPECT R/S MULT 07074 Location of dictation: B2 HISTORY:CHEST PAIN TECHNIQUE: 10.6 mCi Tc-99m sestamibi was injected IV at rest. Non-gated SPECT imaging is performed. The patient is stressed with Lexiscan 0.4 mg/ 5 ml. At peak stress, 30.8 mCi Tc-99m sestamibi was injected IV. Gated SPECT imaging and post-processing are accomplished. FINDINGS: Comparison is made to recent chest x-ray which was unremarkable. The left ventricle is normal in size. Homogeneous myocardial perfusion is observed. No significant stress defects suspicious for ischemia or infarct are identified. Likely attenuation artifact of the anterior wall. The computed calculated LVEF is 65 %. Concentric wall motion is identified. No segm ental wall motion abnormality is seen. Quantitative analysis is within nor mal limits. IMPRESSION: 1. Negative for evidence of sign ificant myocardial ischemia or infarct. 2. Normal left ventricu lar ejection fraction and wall motion. at 1406 Reported and signed by : Hue Shetty M.D. CC: Dr. Sb Rebollar; Jazzy Cui MD Technologist: Sonja Monson, RT(N); ... Transcrpt Date/Tm/Trnsp: 05/16/2019 (1406) [place] Orig Print D/T: S: 05/16/2019 (0156) [facility] NAME: NICOLE SPRING [address] [address] PHYS: [place] [address] : 1975 AGE: 44 SEX: F LOC: Z.642 A PHONE #: [phone] EXAM DATE: 05/16/2019 STATUS: ADM IN FAX #: [phone] RADIOLOGY NO: PAGE 1 Signed Report GLUCOSE BEDSIDE [id number] 13:03:00* Test Item Value Reference Range Comments GLUCOSE BEDSIDE TESTING (test code=GLUBED) 147 MG/DL 60-99 GLUCOSE BEDSIDE [id number] 06:34:00* Test Item Value Reference Range Comments GLUCOSE BEDSIDE TESTING (test code=GLUBED) 168 MG/DL 60-99 GLUCOSE BEDSIDE [id number] 21:52:00* Test Item Value Reference Range Comments GLUCOSE BEDSIDE TESTING (test code=GLUBED) 212 MG/DL 60-99 GLUCOSE BEDSIDE [id number] 16:31:00* Test Item Value Reference Range Comments GLUCOSE BEDSIDE TESTING (test code=GLUBED) 242 MG/DL 60-99 [id number] 15:38:00* Test Item Value Reference Range Comments FERRITIN (test code=SHILPA) 65.9 NG/ML 6.24-137 FE W/TOTAL IRON BINDING CAP.2019-05-15 14:40:00* Test Item Value Reference Range Comments SERUM IRON (test code=IRON) 50 MCG/DL 37-170 TOTAL IRON BINDING CAPACITY (test code=TIBC) 267 MCG/DL 265-497 IRON SATURATION (test code=FESAT) 19 % 12-57 FE W/TOTAL IRON BINDING CAP.2019-05-15 14:30:00* Test Item Value Reference Range Comments SERUM IRON (test code=IRON) 50 MCG/DL 37-170 TOTAL IRON BINDING CAPACITY (test code=TIBC) MCG/DL 265-497 IRON SATURATION (test code=FESAT) % 12-57 GLUCOSE BEDSIDE [id number] 11:53:00* Test Item Value Reference Range Comments GLUCOSE BEDSIDE TESTING (test code=GLUBED) 147 MG/DL 60-99 [id number] 09:41:00* Test Item Value Reference Range Comments TROPONIN-I (test code=TROPI) < 0.012 NG/ML 0.012-0.033 GLUCOSE BEDSIDE [id number] 08:12:00* Test Item Value Reference Range Comments GLUCOSE BEDSIDE TESTING (test code=GLUBED) 210 MG/DL 60-99 BASIC METABOLIC [id number] 07:03:00* Test Item Value Reference Range Comments SODIUM (test code=NA) 136 MMOL/L 137-145 POTASSIUM (test code=K) 3.5 MMOL/L 3.5-5.1 CHLORIDE (test code=CL) 106 MMOL/L 98-107 CARBON DIOXIDE (test code=CO2) 24 MMOL/L 22-30 ANION GAP (test code=GAP) 10 MMOL/L 14-24 GLUCOSE (test code=GLU) 217 MG/DL 74-106 BLOOD UREA NITROGEN (test code=BUN) 15 MG/DL 7-17 GLOMERULAR FILTRATION RATE (test code=GFR) > 60 Reporting units: ml/min/1.73 m2 (Modified MDRD Formula)Reference Range: > or=60 ml/min/1.73 m2 CREATININE (test code=CREAT) 0.70 MG/DL 0.52-1.04 CALCIUM (test code=CA) 8.6 MG/DL 8.4-10.2 LIPID PROFILE (CORONARY RISK)2019-05-15 07:03:00* Test Item Value Reference Range Comments TRIGLYCERIDES (test code=TRIG) 80 MG/DL TRIGLYCERIDES REFERENCE RANGE:Normal: <150 mg/dLBorderline High: 150-199 mg/dLHigh: 200-499 mg/dLVery High: >=500 mg/dL CHOLESTEROL (test code=CHOL) 104 MG/DL <200 HDL CHOLESTEROL (test code=HDL) 32 MG/DL 40-59 LIPOPROTEIN LDL (test code=LDL) 66 MG/DL 0-99 OPTIMAL.........<100 mg/dLNEAR OPTIMAL/ABOVE OPTIMAL.........100-129 mg/dL BORDERLINE HIGH.........130-159 mg/dL HIGH.........160-189 mg/dL VERY HIGH.........>/=190 mg/dL GLYCOSYLATED HEMOGLOBIN [id number] 06:56:00* Test Item Value Reference Range Comments GLYCOSYLATED HEMOGLOBIN (HA1C) (test code=GLYHGB) 13.8 % 4.8-5.9 Any condition that shortens erythocyte survival or decreasesmean erythrocyte age (e.g., recovery from acute blood loss,hemolytic anemia) will falsely lower HGBA1c resultsregardless of the method used. HGBA1c results from patientswith HbSS, HbCC, and HbSc must be interpreted with cautiongiven the pathological processes, including anemia,increased red cell turnover, transfusion requirements, thatadve rsely impact HGBA1c as a marker of long-term glycemiccontrol. Alternative forms of testing such as fructosamineshould be considered for these patients. MEAN BLOOD GLUCOSE (test code=MBG) 349 MG/DL 70-110 BASIC METABOLIC [id number] 06:52:00* Test Item Value Reference Range Comments SODIUM (test code=NA) 136 MMOL/L 137-145 POTASSIUM (test code=K) 3.5 MMOL/L 3.5-5.1 CHLORIDE (test code=CL) 106 MMOL/L 98-107 CARBON DIOXIDE (test code=CO2) 24 MMOL/L 22-30 ANION GAP (test code=GAP) 10 MMOL/L 14-24 GLUCOSE (test code=GLU) 217 MG/DL 74-106 BLOOD UREA NITROGEN (test code=BUN) 15 MG/DL 7-17 GLOMERULAR FILTRATION RATE (test code=GFR) > 60 Reporting units: ml/min/1.73 m2 (Modified MDRD Formula)Reference Range: > or=60 ml/min/1.73 m2 CREATININE (test code=CREAT) 0.70 MG/DL 0.52-1.04 CALCIUM (test code=CA) 8.6 MG/DL 8.4-10.2 LIPID PROFILE (CORONARY RISK)2019-05-15 06:52:00* Test Item Value Reference Range Comments TRIGLYCERIDES (test code=TRIG) 80 MG/DL TRIGLYCERIDES REFERENCE RANGE:Normal: <150 mg/dLBorderline High: 150-199 mg/dLHigh: 200-499 mg/dLVery High: >=500 mg/dL CHOLESTEROL (test code=CHOL) 104 MG/DL <200 HDL CHOLESTEROL (test code=HDL) 32 MG/DL 40-59 LIPOPROTEIN LDL (test code=LDL) MG/DL 0-99 CBC W/AUTO [id number] 06:33:00* Test Item Value Reference Range Comments WHITE BLOOD CELL (test code=WBC) 6.2 K/MM3 3.8-9.8 RED BLOOD CELL (test code=RBC) 4.34 M/MM3 3.58-4.97 HEMOGLOBIN (test code=HGB) 9.7 G/DL 11.2-14.9 HEMATOCRIT (test code=HCT) 32.8 % 33.2-43.5 MEAN CELL VOLUME (test code=MCV) 76 fL 80.7-99.1 MEAN CELL HGB (test code=MCH) 22.4 pg 27.0-34.1 MEAN CELL HGB CONCETRATION (test code=MCHC) 29.6 % 32.2-35.7 RED CELL DISTRIBUTION WIDTH (test code=RDW) 13.4 % 12.1-15.2 PLATELET COUNT (test code=PLT) 166 K/MM3 129-368 MEAN PLATELET VOLUME (test code=MPV) 10.8 fl 7.4-10.4 NEUTROPHIL % (test code=NT%) 61.0 % 43-75 IMMATURE GRANULOCYTE % (test code=IG%) 0.3 % 0.0-2.0 LYMPHOCYTE % (test code=LY%) 29.3 % 14-44 MONOCYTE % (test code=MO%) 7.3 % 4-13 EOSINOPHIL % (test code=EO%) 1.8 % 0-6 BASOPHIL % (test code=BA%) 0.3 % 0-2 NUCLEATED RBC % (test code=NRBC%) 0.0 % 0-1.0 NEUTROPHIL # (test code=NT#) 3.76 K/mm3 2.0-7.6 IMMATURE GRANULOCYTE # (test code=IG#) 0.02 x10 3/uL 0-0.03 LYMPHOCYTE # (test code=LY#) 1.81 K/mm3 1.0-3.8 MONOCYTE # (test code=MO#) 0.45 K/mm3 0.1-0.8 EOSINOPHIL # (test code=EO#) 0.11 K/mm3 0.0-0.2 BASOPHIL # (test code=BA#) 0.02 K/mm3 0.0-0.2 NUCLEATED RBC # (test code=NRBC#) 0.00 K/mm3 0.0-0.1 [id number] 03:16:00* Test Item Value Reference Range Comments TROPONIN-I (test code=TROPI) < 0.012 NG/ML 0.012-0.033 Q 3HRS; THEN Q6HRS x2 AFTER. [id number] 23:48:00* Test Item Value Reference Range Comments TROPONIN-I (test code=TROPI) < 0.012 NG/ML 0.012-0.033 GLUCOSE BEDSIDE [id number] 20:51:00* Test Item Value Reference Range Comments GLUCOSE BEDSIDE TESTING (test code=GLUBED) 159 MG/DL 60-99 COMPREHENSIVE METABOLIC [id number] 17:49:00* Test Item Value Reference Range Comments SODIUM (test code=NA) 135 MMOL/L 137-145 POTASSIUM (test code=K) 3.5 MMOL/L 3.5-5.1 CHLORIDE (test code=CL) 99 MMOL/L 98-107 CARBON DIOXIDE (test code=CO2) 27 MMOL/L 22-30 ANION GAP (test code=GAP) 13 MMOL/L 14-24 GLUCOSE (test code=GLU) 259 MG/DL 74-106 BLOOD UREA NITROGEN (test code=BUN) 20 MG/DL 7-17 GLOMERULAR FILTRATION RATE (test code=GFR) 50 Reporting units: ml/min/1.73 m2 (Modified MDRD Formula)Reference Range: > or=60 ml/min/1.73 m2 CREATININE (test code=CREAT) 1.40 MG/DL 0.52-1.04 TOTAL PROTEIN (test code=PROT) 7.5 G/DL 6.3-8.2 ALBUMIN (test code=ALB) 4.1 G/DL 3.5-5.0 CALCIUM (test code=CA) 10.3 MG/DL 8.4-10.2 BILIRUBIN TOTAL (test code=BILT) 0.3 MG/DL 0.2-1.3 SGOT/AST (test code=AST) 20 UNITS/L 14-36 SGPT/ALT (test code=ALT) 15 UNITS/L 9-52 ALKALINE PHOSPHATASE (test code=ALKP) 105 UNITS/L 38-126 CREATINE KINASE (CK)2019-05-14 17:49:00* Test Item Value Reference Range Comments CREATINE KINASE (CK) (test code=CK) 166 UNITS/L 30-135 [id number] 17:49:00* Test Item Value Reference Range Comments LIPASE (test code=LIP) 65 UNITS/L 23-300 HCG SERUM [id number] 17:49:00* Test Item Value Reference Range Comments HCG SERUM QUAL (test code=HCGQL) NEGATIVE NEGATIVE NT PRO-BRAIN NATRIURETIC [id number] 17:49:00* Test Item Value Reference Range Comments NT PRO-BRAIN NATRIURETIC PEPTI (test code=PROBNP) 94.1 pg/mL 0-125 NT PRO-BNP IS THE REPLACEMENT ASSAY FOR BNP. PROTHROMBIN [id number] 17:40:00* Test Item Value Reference Range Comments PROTHROMBIN TIME PATIENT (test code=PTP) 10.9 SECONDS 9.6-11.6 INTERNATIONAL NORMAL RATIO (test code=INR) 1.0 0.8-1.1 The INR is to be used only for monitoring oral anticoagulanttherapy. INDICATION INR VALUE 1. Prophylaxis, deep venous thrombosis, including high risk surgery. 2.0 - 3.0 2. Prophylaxis, deep venous thrombosis, hip surgery, treatment for deep venous thrombosis or pulmonary prevention of systemic embolism in patients with valvular heart disease, atrial fibrillation, tissue heart valve, or acute myocardial infarction. 2.0 - 3.0 3. M echanical prosthesis heart valves, recurrent systemic embolism. 3.0 - 4.5 PTT [id number] 17:40:00* Test Item Value Reference Range Comments PTT ACTIVATED (test code=APTT) 23.0 SECONDS 22.0-33.0 [id number] 17:40:00* Test Item Value Reference Range Comments D-DIMER (test code=DDIMER) 0.21 MG/L FEU 0-0.49 Negative Predictive Value cutoff for DVT & PE: <0.50 mg/L FEUInterpretation: A value of <0.50 mg/L FEU has a NegativePredictive Value in ruling out a DVT or PE diagnosis.A value of 0.50 mg/L or greater is considered Positive.Positive result cannot be used for the diagnosis of DVT andPE without using of standard radiological procedures. COMPREHENSIVE METABOLIC [id number] 17:38:00* Test Item Value Reference Range Comments SODIUM (test code=NA) 135 MMOL/L 137-145 POTASSIUM (test code=K) 3.5 MMOL/L 3.5-5.1 CHLORIDE (test code=CL) 99 MMOL/L 98-107 CARBON DIOXIDE (test code=CO2) 27 MMOL/L 22-30 ANION GAP (test code=GAP) 13 MMOL/L 14-24 GLUCOSE (test code=GLU) 259 MG/DL 74-106 BLOOD UREA NITROGEN (test code=BUN) 20 MG/DL 7-17 GLOMERULAR FILTRATION RATE (test code=GFR) 50 Reporting units: ml/min/1.73 m2 (Modified MDRD Formula)Reference Range: > or=60 ml/min/1.73 m2 CREATININE (test code=CREAT) 1.40 MG/DL 0.52-1.04 TOTAL PROTEIN (test code=PROT) 7.5 G/DL 6.3-8.2 ALBUMIN (test code=ALB) 4.1 G/DL 3.5-5.0 CALCIUM (test code=CA) 10.3 MG/DL 8.4-10.2 BILIRUBIN TOTAL (test code=BILT) 0.3 MG/DL 0.2-1.3 SGOT/AST (test code=AST) 20 UNITS/L 14-36 SGPT/ALT (test code=ALT) 15 UNITS/L 9-52 ALKALINE PHOSPHATASE (test code=ALKP) 105 UNITS/L 38-126 CREATINE KINASE (CK)2019-05-14 17:38:00* Test Item Value Reference Range Comments CREATINE KINASE (CK) (test code=CK) 166 UNITS/L 30-135 [id number] 17:38:00* Test Item Value Reference Range Comments LIPASE (test code=LIP) 65 UNITS/L 23-300 HCG SERUM [id number] 17:38:00* Test Item Value Reference Range Comments HCG SERUM QUAL (test code=HCGQL) NEGATIVE NEGATIVE NT PRO-BRAIN NATRIURETIC [id number] 17:38:00* Test Item Value Reference Range Comments NT PRO-BRAIN NATRIURETIC PEPTI (test code=PROBNP) pg/mL 0-125 COMPREHENSIVE METABOLIC [id number] 17:36:00* Test Item Value Reference Range Comments SODIUM (test code=NA) 135 MMOL/L 137-145 POTASSIUM (test code=K) 3.5 MMOL/L 3.5-5.1 CHLORIDE (test code=CL) 99 MMOL/L 98-107 CARBON DIOXIDE (test code=CO2) 27 MMOL/L 22-30 ANION GAP (test code=GAP) 13 MMOL/L 14-24 GLUCOSE (test code=GLU) 259 MG/DL 74-106 BLOOD UREA NITROGEN (test code=BUN) 20 MG/DL 7-17 GLOMERULAR FILTRATION RATE (test code=GFR) 50 Reporting units: ml/min/1.73 m2 (Modified MDRD Formula)Reference Range: > or=60 ml/min/1.73 m2 CREATININE (test code=CREAT) 1.40 MG/DL 0.52-1.04 TOTAL PROTEIN (test code=PROT) 7.5 G/DL 6.3-8.2 ALBUMIN (test code=ALB) 4.1 G/DL 3.5-5.0 CALCIUM (test code=CA) 10.3 MG/DL 8.4-10.2 BILIRUBIN TOTAL (test code=BILT) 0.3 MG/DL 0.2-1.3 SGOT/AST (test code=AST) 20 UNITS/L 14-36 SGPT/ALT (test code=ALT) 15 UNITS/L 9-52 ALKALINE PHOSPHATASE (test code=ALKP) 105 UNITS/L 38-126 CREATINE KINASE (CK)2019-05-14 17:36:00* Test Item Value Reference Range Comments CREATINE KINASE (CK) (test code=CK) 166 UNITS/L 30-135 [id number] 17:36:00* Test Item Value Reference Range Comments LIPASE (test code=LIP) 65 UNITS/L 23-300 HCG SERUM [id number] 17:36:00* Test Item Value Reference Range Comments HCG SERUM QUAL (test code=HCGQL) NEGATIVE NT PRO-BRAIN NATRIURETIC [id number] 17:36:00* Test Item Value Reference Range Comments NT PRO-BRAIN NATRIURETIC PEPTI (test code=PROBNP) pg/mL 0-125 CBC W/AUTO [id number] 17:29:00* Test Item Value Reference Range Comments WHITE BLOOD CELL (test code=WBC) 10.2 K/MM3 3.8-9.8 RED BLOOD CELL (test code=RBC) 4.53 M/MM3 3.58-4.97 HEMOGLOBIN (test code=HGB) 10.3 G/DL 11.2-14.9 HEMATOCRIT (test code=HCT) 33.5 % 33.2-43.5 MEAN CELL VOLUME (test code=MCV) 74 fL 80.7-99.1 MEAN CELL HGB (test code=MCH) 22.7 pg 27.0-34.1 MEAN CELL HGB CONCETRATION (test code=MCHC) 30.7 % 32.2-35.7 RED CELL DISTRIBUTION WIDTH (test code=RDW) 13.5 % 12.1-15.2 PLATELET COUNT (test code=PLT) 199 K/MM3 129-368 MEAN PLATELET VOLUME (test code=MPV) 11.5 fl 7.4-10.4 NEUTROPHIL % (test code=NT%) 75.5 % 43-75 IMMATURE GRANULOCYTE % (test code=IG%) 0.6 % 0.0-2.0 LYMPHOCYTE % (test code=LY%) 16.3 % 14-44 MONOCYTE % (test code=MO%) 6.5 % 4-13 EOSINOPHIL % (test code=EO%) 0.8 % 0-6 BASOPHIL % (test code=BA%) 0.3 % 0-2 NUCLEATED RBC % (test code=NRBC%) 0.0 % 0-1.0 NEUTROPHIL # (test code=NT#) 7.73 K/mm3 2.0-7.6 IMMATURE GRANULOCYTE # (test code=IG#) 0.06 x10 3/uL 0-0.03 LYMPHOCYTE # (test code=LY#) 1.67 K/mm3 1.0-3.8 MONOCYTE # (test code=MO#) 0.67 K/mm3 0.1-0.8 EOSINOPHIL # (test code=EO#) 0.08 K/mm3 0.0-0.2 BASOPHIL # (test code=BA#) 0.03 K/mm3 0.0-0.2 NUCLEATED RBC # (test code=NRBC#) 0.00 K/mm3 0.0-0.1 CHEMISTRY 8 [id number] 17:28:00* Test Item Value Reference Range Comments IONIZED CALCIUM (test code=CAIABG) MMOL/L 1.12-1.24 ISTAT-TCO2 VENOUS (test code=TCO2VP) MMOL/L 23-32 ISTAT-SODIUM (test code=NAP) MMOL/L 137-144 ISTAT-POTASSIUM (test code=KP) MMOL/L 3.1-4.8 ISTAT-CHLORIDE (test code=CLP) MMOL/L 97-108 ISTAT-GLUCOSE (test code=GLUP) MG/DL 60-99 ISTAT-BUN (test code=BUNP) MG/DL 9-21 BEDSIDE CREATININE (test code=CREATBED) MG/DL 0.6-1.4 GLOMERULAR FILTRATION RATE POC (test code=GFRBED) 46 58-135 Reporting units: ml/min/1.73 m2 (Modified MDRD Formula)Reference Range: > or=60 ml/min/1.73 m2 CHEMISTRY 8 [id number] 17:28:00* Test Item Value Reference Range Comments IONIZED CALCIUM (test code=CAIABG) 1.24 MMOL/L 1.12-1.24 ISTAT-TCO2 VENOUS (test code=TCO2VP) 24 MMOL/L 23-32 ISTAT-SODIUM (test code=NAP) 136 MMOL/L 137-144 ISTAT-POTASSIUM (test code=KP) 3.4 MMOL/L 3.1-4.8 ISTAT-CHLORIDE (test code=CLP) 97 MMOL/L 97-108 ISTAT-GLUCOSE (test code=GLUP) 255 MG/DL 60-99 ISTAT-BUN (test code=BUNP) 19 MG/DL 9-21 BEDSIDE CREATININE (test code=CREATBED) 1.5 MG/DL 0.6-1.4 GLOMERULAR FILTRATION RATE POC (test code=GFRBED) 46 58-135 Reporting units: ml/min/1.73 m2 (Modified MDRD Formula)Reference Range: > or=60 ml/min/1.73 m2 TROPONIN I [id number] 17:28:00* Test Item Value Reference Range Comments TROPONIN I RAPID (test code=TROPIRAP) 0.00 NG/ML 0.00-0.05 - XR CHEST [id number] 17:00:00 Patient Name: NICOLE SPRING Unit No: [id number] EXAMS: CPT CODE: [id number] XR CHEST 1V [id number] EXAM: Chest x-ray Dictation location: B2 COMPARISON: Chest x-ray on 12/13/2016 INDICATION: cp DISCUSSION: A left IJ venous chest port is in place, with tip over the appropriate position over the upper cavoatrial junction. No consolidation, pleural effusion, or pneumothorax is seen. The cardiomediastinal silhouette is within normal limits. No acute bony abnormalities are identified. IMPRESSION: No evidence of acute abnormality. A left IJ venous chest port is in place. at 1700 Reported and signed by: Sergio Campbell MD CC: DONNA MCGRAW DO Technologist: Connor Frey, RT(R) Transcrpt Date/Tm/Trnsp: 05/14/2019 (1700) [email or web address] Orig Print D/T: S: 05/14/2019 (1704) [facility] NAME: NICOLE SPRING [id number] [address] PHYS: [place] [address] : 1975 AGE: 44 SEX: F LOC: MARK PHONE #: [phone] EXAM DATE: 05/14/2019 STATUS: REG ER FAX #: [phone] RADIOLOGY NO: PAGE 1 Signed Report POCT-GLUCOSE [id number] 16:14:00* Test Item Value Reference Range Comments POC-GLUCOSE METER (BEAKER) (test bibl=7985) 311 mg/dL 70-110 TESTED AT [address] [address] BASIC METABOLIC [id number] 15:23:00* Test Item Value Reference Range Comments SODIUM (BEAKER) (test xlyo=048) 134 meq/L 135-148 POTASSIUM (BEAKER) (test khwv=649) 4.0 meq/L 3.6-5.5 CHLORIDE (BEAKER) (test tfxx=672) 98 meq/L 98-106 CO2 (BEAKER) (test gyqh=672) 28 meq/L 24-32 BLOOD UREA NITROGEN (BEAKER) (test kbjz=454) 11 mg/dL 10-26 CREATININE (BEAKER) (test zxia=212) 0.58 mg/dL 0.50-1.20 GLUCOSE RANDOM (BEAKER) (test vtno=519) 331 mg/dL 70-110 CALCIUM (BEAKER) (test szhk=521) 9.5 mg/dL 8.5-10.5 EGFR (BEAKER) (test ijcy=2776) 137 mL/min/1.73 sq m ESTIMATED GFR IS NOT ACCURATE CREATININE CLEARANCE IN PREDICTING GLOMERULAR FILTRATION RATE. ESTIMATED GFR IS NOT APPLICABLE FOR DIALYSIS PATIENTS. CBC W/PLT COUNT & AUTO [id number] 14:52:00* Test Item Value Reference Range Comments WHITE BLOOD CELL COUNT (BEAKER) (test zxct=289) 8.4 K/ L 4.0-10.0 RED BLOOD CELL COUNT (BEAKER) (test sdzv=712) 4.83 M/ L 4.00-5.00 HEMOGLOBIN (BEAKER) (test lmpx=855) 10.9 GM/DL 12.0-15.0 HEMATOCRIT (BEAKER) (test wwjn=010) 34.2 % 36.0-45.0 MEAN CORPUSCULAR VOLUME (BEAKER) (test maxk=329) 70.9 fL 82.0-99.0 MEAN CORPUSCULAR HEMOGLOBIN (BEAKER) (test ktat=602) 22.5 pg 27.0-33.0 MEAN CORPUSCULAR HEMOGLOBIN CONC (BEAKER) (test livd=852) 31.8 GM/DL 32.0-36.0 RED CELL DISTRIBUTION WIDTH (BEAKER) (test yjtq=370) 16.2 % 10.3-14.2 PLATELET COUNT (BEAKER) (test wkje=990) 216 K/CU MM 150-430 MEAN PLATELET VOLUME (BEAKER) (test umnk=453) 10.0 fL 6.5-10.5 NEUTROPHILS RELATIVE PERCENT (BEAKER) (test dnri=568) 66 % LYMPHOCYTES RELATIVE PERCENT (BEAKER) (test hkth=002) 24 % MONOCYTES RELATIVE PERCENT (BEAKER) (test rujz=334) 7 % EOSINOPHILS RELATIVE PERCENT (BEAKER) (test abdf=268) 2 % BASOPHILS RELATIVE PERCENT (BEAKER) (test epmy=964) 0 % NEUTROPHILS ABSOLUTE COUNT (BEAKER) (test zojd=330) 5.53 K/ L 1.80-8.00 LYMPHOCYTES ABSOLUTE COUNT (BEAKER) (test kyof=152) 2.04 K/ L 1.48-4.50 MONOCYTES ABSOLUTE COUNT (BEAKER) (test wgtg=097) 0.58 K/ L 0.00-1.30 EOSINOPHILS ABSOLUTE COUNT (BEAKER) (test pokk=589) 0.18 K/ L 0.00-0.50 BASOPHILS ABSOLUTE COUNT (BEAKER) (test oemk=624) 0.03 K/ L 0.00-0.20 Slight hypochromia; slight microcytosisBASIC METABOLIC [id number] 14:47:00 * Test Item Value Reference Range Comments SODIUM (BEAKER) (test yzzv=559) 133 meq/L 135-148 POTASSIUM (BEAKER) (test dfwp=811) 6.2 meq/L 3.6-5.5 CHLORIDE (BEAKER) (test dvqo=831) 98 meq/L 98-106 CO2 (BEAKER) (test urfh=485) 26 meq/L 24-32 BLOOD UREA NITROGEN (BEAKER) (test hrxf=928) 12 mg/dL 10-26 CREATININE (BEAKER) (test ciwl=042) 0.58 mg/dL 0.50-1.20 GLUCOSE RANDOM (BEAKER) (test tiye=856) 354 mg/dL 70-110 CALCIUM (BEAKER) (test meiv=289) 9.3 mg/dL 8.5-10.5 EGFR (BEAKER) (test ngah=9539) 137 mL/min/1.73 sq m ESTIMATED GFR IS NOT ACCURATE CREATININE CLEARANCE IN PREDICTING GLOMERULAR FILTRATION RATE. ESTIMATED GFR IS NOT APPLICABLE FOR DIALYSIS PATIENTS. Specimen is moderately hemolyzedRAD, CHEST, 2 [id number] 14:36:00Reason for exam:->COUGHIs the patient ?->NoShould this be performed at the bedside?->NoFINAL REPORT Chest x-ray, PA and lateral views Clinical History: COUGH Comparison: February 11, 2019 Findings: The cardiac and mediastinal contours are normal. A left Port-A-Cath is in stable position. There is no pneumothorax, olimpia pulmonary edema, consolidation or pleural effusion. The bony structures are unremarkable. Impression: No acute process identified. Signed: Radha Luciano Verified Date/Time: 03/26/2019 14:36:38 Reading Location: [facility] C013 Consult Reading Room -GLUCOSE [id number] 14:16:00 * Test Item Value Reference Range Comments POC-GLUCOSE METER (BEAKER) (test tfdq=0888) 381 mg/dL 70-110 TESTED AT [facility] [address] [address] [address] [facility] [address] RAD, CHEST, 2 [id number] 21:27:00Reason for exam:->COUGHIs the patient ?->NoShould this be performed at the bedside?->NoFINAL REPORT PA and Lateral views of the chest dated 02/11/2019 Clinical information: COUGH Comment: Heart is normal in size. Pulmonary vasculature is unremarkable. Lungs are clear. No pulmonary infiltrate or pleural effusion is present. Port-A-Cath is present. Impression: No active cardiopulmonary disease. Signed: Maggie Hoffman Verified Date/Time: 02/11/2019 21:27:40 Reading Location: [facility] C0[facility] Consult Reading Room , [id number] 22:55:00FINAL REPORT ABDOMINAL AND PELVIS CT DATED 12/07/2018 CLINICAL INFORMATION: Abdominal pain, unspecified TECHNIQUE: Axial images of the abdomen and pelvis were obtained from diaphragm to the pubic symphysis with intr avenous contrast. This exam was performed according to our departmental dose-op timization program, which includes automated exposure control, adjustment of the mA and/or kV according to patient size and/or use of interactive reconstruction technique. COMMENT: Liver and spleen are normal in size without focal abnormali ty. Gallbladder is contracted. No gallstone or biliary dilatation is noted. Pa ncreas and adrenals are unremarkable. Both kidneys are normal in size and func tioning. No hydronephrosis, hydroureter, urolithiasis is seen. The small and lar ge bowel are unremarkable. Appendix is normal in caliber. Uterus and ovaries are unremarkable. The urinary bladder is minimally distended. No mass, adenopathy or ascites is present. IMPRESSION: Unremarkable CT of the abdomen and pelvis. S igned: Maggie Hoffman MDReport Verified Date/Time: 12/07/2018 22:55:15 Reading Loc ation: [facility] B1 C013W Consult Reading Room ALYSIS WITH MICROSCOPIC IF INDICATED 2018-12-07 22:28:00* Test Item Value Reference Range Comments COLOR (BEAKER) (test qipb=760) Yellow CLARITY (BEAKER) (test xiel=739) Clear SPECIFIC GRAVITY UA (BEAKER) (test enfl=076) 1.020 1.001-1.035 PH UA (BEAKER) (test gvlo=763) 5.0 5.0-8.0 PROTEIN UA (BEAKER) (test uazm=858) Negative Negative GLUCOSE UA (BEAKER) (test ijts=569) 500 mg/dL Negative KETONES UA (BEAKER) (test tkak=600) Trace Negative BILIRUBIN UA (BEAKER) (test emwz=667) Negative Negative BLOOD UA (BEAKER) (test pnka=340) Negative Negative NITRITE UA (BEAKER) (test lojb=922) Negative Negative LEUKOCYTE ESTERASE UA (BEAKER) (test aoxh=153) Negative Negative UROBILINOGEN UA (BEAKER) (test bpkr=656) 0.2 mg/dL 0.2-1.0 SOURCE(BEAKER) (test dvbu=7999) SCREEN, [id number] 22:26:00* Test Item Value Reference Range Comments TEST URINE (BEAKER) (test ljhz=706) Negative CBC W/PLT COUNT & AUTO [id number] 22:02:00* Test Item Value Reference Range Comments WHITE BLOOD CELL COUNT (BEAKER) (test anhl=343) 7.5 K/ L 4.0-10.0 RED BLOOD CELL COUNT (BEAKER) (test lumt=429) 3.82 M/ L 4.00-5.00 HEMOGLOBIN (BEAKER) (test hhqn=305) 8.6 GM/DL 12.0-15.0 HEMATOCRIT (BEAKER) (test wlzi=969) 26.9 % 36.0-45.0 MEAN CORPUSCULAR VOLUME (BEAKER) (test yjqk=171) 70.4 fL 82.0-99.0 MEAN CORPUSCULAR HEMOGLOBIN (BEAKER) (test rdlf=649) 22.5 pg 27.0-33.0 MEAN CORPUSCULAR HEMOGLOBIN CONC (BEAKER) (test kpei=256) 32.0 GM/DL 32.0-36.0 RED CELL DISTRIBUTION WIDTH (BEAKER) (test mxgq=254) 13.8 % 10.3-14.2 PLATELET COUNT (BEAKER) (test yaoc=526) 162 K/CU MM 150-430 MEAN PLATELET VOLUME (BEAKER) (test abzd=642) 9.3 fL 6.5-10.5 NEUTROPHILS RELATIVE PERCENT (BEAKER) (test vhgz=666) 69 % LYMPHOCYTES RELATIVE PERCENT (BEAKER) (test ujab=710) 22 % MONOCYTES RELATIVE PERCENT (BEAKER) (test cnpi=949) 7 % EOSINOPHILS RELATIVE PERCENT (BEAKER) (test itwt=667) 2 % BASOPHILS RELATIVE PERCENT (BEAKER) (test nrkw=766) 0 % NEUTROPHILS ABSOLUTE COUNT (BEAKER) (test mqfo=621) 5.19 K/ L 1.80-8.00 LYMPHOCYTES ABSOLUTE COUNT (BEAKER) (test cxmr=438) 1.68 K/ L 1.48-4.50 MONOCYTES ABSOLUTE COUNT (BEAKER) (test hmti=378) 0.51 K/ L 0.00-1.30 EOSINOPHILS ABSOLUTE COUNT (BEAKER) (test xnvp=020) 0.12 K/ L 0.00-0.50 BASOPHILS ABSOLUTE COUNT (BEAKER) (test cdsv=799) 0.03 K/ L 0.00-0.20 BASIC METABOLIC [id number] 21:56:00* Test Item Value Reference Range Comments SODIUM (BEAKER) (test oowl=569) 133 meq/L 135-148 POTASSIUM (BEAKER) (test zslj=475) 4.4 meq/L 3.6-5.5 CHLORIDE (BEAKER) (test axpw=704) 99 meq/L 98-106 CO2 (BEAKER) (test kspo=744) 23 meq/L 24-32 BLOOD UREA NITROGEN (BEAKER) (test kexc=917) 16 mg/dL 10-26 CREATININE (BEAKER) (test tjda=207) 0.68 mg/dL 0.50-1.20 GLUCOSE RANDOM (BEAKER) (test rpdl=567) 318 mg/dL 70-110 CALCIUM (BEAKER) (test nhhi=356) 8.9 mg/dL 8.5-10.5 EGFR (BEAKER) (test qcab=2128) 114 mL/min/1.73 sq m ESTIMATED GFR IS NOT ACCURATE CREATININE CLEARANCE IN PREDICTING GLOMERULAR FILTRATION RATE. ESTIMATED GFR IS NOT APPLICABLE FOR DIALYSIS PATIENTS. HEPATIC FUNCTION [id number] 21:56:00* Test Item Value Reference Range Comments TOTAL PROTEIN (BEAKER) (test qdgy=303) 7.5 gm/dL 6.0-8.5 ALBUMIN (BEAKER) (test vxhy=1103) 4.3 g/dL 3.5-5.0 BILIRUBIN TOTAL (BEAKER) (test izyn=677) 0.4 mg/dL 0.1-1.2 BILIRUBIN DIRECT (BEAKER) (test nnsk=268) 0.1 mg/dL 0.0-0.4 ALKALINE PHOSPHATASE (BEAKER) (test xdsw=351) 138 U/L 30-115 AST (SGOT) (BEAKER) (test pjok=191) 16 U/L 5-40 ALT (SGPT) (BEAKER) (test wnvr=686) 27 U/L 5-50 [id number] 21:56:00* Test Item Value Reference Range Comments LIPASE (BEAKER) (test jlew=661) 84 U/L 40-240 URINALYSIS W/ REFLEX URINE [id number] 21:52:00* Test Item Value Reference Range Comments COLOR (BEAKER) (test huyv=311) Yellow CLARITY (BEAKER) (test mxvk=893) Hazy SPECIFIC GRAVITY UA (BEAKER) (test mgfx=401) 1.020 1.001-1.035 PH UA (BEAKER) (test vrur=870) 5.0 5.0-8.0 PROTEIN UA (BEAKER) (test jujo=771) Negative Negative GLUCOSE UA (BEAKER) (test tast=254) 500 mg/dL Negative KETONES UA (BEAKER) (test uody=486) Negative Negative BILIRUBIN UA (BEAKER) (test svsy=381) Negative Negative BLOOD UA (BEAKER) (test sgwf=674) Trace Negative NITRITE UA (BEAKER) (test vpyz=354) Negative Negative LEUKOCYTE ESTERASE UA (BEAKER) (test gtku=609) Negative Negative UROBILINOGEN UA (BEAKER) (test bbze=260) 0.2 mg/dL 0.2-1.0 BACTERIA (BEAKER) (test ztum=213) Many RBC UA-MANUAL (BEAKER) (test bcuj=5012) <5 /HPF WBC UA-MANUAL (BEAKER) (test rvez=5825) 10-20 /HPF SOURCE(BEAKER) (test uymv=9805) SCREEN, [id number] 21:48:00* Test Item Value Reference Range Comments TEST URINE (BEAKER) (test wlrw=895) Negative GLUCOSE BEDSIDE [id number] 11:10:00* Test Item Value Reference Range Comments GLUCOSE BEDSIDE TESTING (test code=GLUBED) 279 MG/DL 60-99 - CT HEAD/BRAIN W/O [id number] 09:23:00 Patient Name: NICOLE SPRING Unit No: [id number] EXAMS: CPT CODE: [id number] CT HEAD/BRAIN W/O CONT 53268 EXAMINATION: - CT HEAD/BRAIN W/O CONT. LOCATION: S17. HISTORY: headache and dizziness. COMPARISON: None. TECHNIQUE: Routine CT of the head was performed without intravenous contrast as per protocol. One or more the following dose reduction techniques were used: Automated exposure control, adjustment of mA and/or kV according to patient size, and use of iterative reconstruction technique. FINDINGS: Brain Parenchyma: No hemorrhage or infarction. No mass effect or midline shift. Extra Axial Spaces: Unremarkable. Ventricular System: Unremarkable. Osseous Structures: Unremarkable. Visualized Paranasal Sinuses: Unremarkable. IMPRESSION: No acute intracranial abnormality nor hemorrhage. at 0923 Reported and signed by: Tayler Green CC: Reese Hobson MD Technologist: RT Torsten(R) CTDI: DLP: Trnscrpt: 10/05/2018 (0923) [email or web address] [facility] NAME: NICOLE SPRING [id number] PHYS: [email or web address] - [place] [address] : 1975 AGE: 43 SEX: F LOC: JamieERS PHONE #: [phone] EXAM DATE: 10/05/2018 STATUS: REG ER FAX #: [phone] RAD #: D/C DT PAGE 1 Signed Report Patient Name: NICOLE SPRING Unit No: [id number] EXAMS: CPT CODE: [id number] CT HEAD/BRAIN W/O CONT 26380 <Continued> Orig Print D/T: S: 10/05/2018 (0927) [facility] NAME: NICOLE SPRING [id number] [address] PHYS: [email or web address] - [place] [address] : 1975 AGE: 43 SEX: F LOC: JamieE RS PHONE #: [phone] EXAM DATE: 10/05/2018 STATUS: REG ER FAX #: [phone] RAD #: D/C DT PAGE 2 Signed Report BASIC METABOLIC [id number] 09:07:00* Test Item Value Reference Range Comments SODIUM (test code=NA) 135 MMOL/L 137-145 POTASSIUM (test code=K) 4.7 MMOL/L 3.5-5.1 CHLORIDE (test code=CL) 100 MMOL/L 98-107 CARBON DIOXIDE (test code=CO2) 29 MMOL/L 22-30 ANION GAP (test code=GAP) 11 MMOL/L 14-24 GLUCOSE (test code=GLU) 326 MG/DL 74-106 CALLED TO SRINI& READBACK ON 10/05/18 AT 0907 BY Raquel Cummins BLOOD UREA NITROGEN (test code=BUN) 14 MG/DL 7-17 GLOMERULAR FILTRATION RATE (test code=GFR) > 60 Reporting units: ml/min/1.73 m2 (Modified MDRD Formula)Reference Range: > or=60 ml/min/1.73 m2 CREATININE (test code=CREAT) 1.00 MG/DL 0.52-1.04 CALCIUM (test code=CA) 9.4 MG/DL 8.4-10.2 URINALYSIS [id number] 09:06:00* Test Item Value Reference Range Comments UA COLOR (test code=COLU) YELLOW YELLOW UA APPEARANCE (test code=APPU) CLEAR CLEAR UA GLUCOSE DIPSTICK (test code=DGLUU) 1000 MG/DL NORMAL UA BILIRUBIN DIPSTICK (test code=BILU) NEGATIVE MG/DL NEGATIVE UA KETONE DIPSTICK (test code=KETU) NEGATIVE MG/DL NEGATIVE UA SPECIFIC GRAVITY (test code=SGU) 1.015 1.003-1.030 UA BLOOD DIPSTICK (test code=ADAM) NEGATIVE Allan/mm3 NEGATIVE UA PH DIPSTICK (test code=MARJORIE) 6.5 5.0-9.0 UA PROTEIN DIPSTICK (test code=PROU) NEGATIVE MG/DL NEGATIVE UA UROBILINIOGEN DIPSTICK (test code=URO) NORMAL MG/DL NORMAL UA NITRITE DIPSTICK (test code=YAZMIN) NEGATIVE NEGATIVE UA LEUKOCYTE ESTERASE DIPSTICK (test code=LEUU) NEGATIVE /mm3 NEGATIVE UA CULTURE NEEDED? (test code=UACULT) NEGATIVE, NO CULTURE Criteria Culture Chk UR HCG [id number] 09:06:00* Test Item Value Reference Range Comments UR HCG QUAL (test code=HCGQLU) NEGATIVE NEGATIVE URINALYSIS [id number] 09:05:00* Test Item Value Reference Range Comments UA COLOR (test code=COLU) YELLOW YELLOW UA APPEARANCE (test code=APPU) CLEAR CLEAR UA GLUCOSE DIPSTICK (test code=DGLUU) 1000 MG/DL NORMAL UA BILIRUBIN DIPSTICK (test code=BILU) NEGATIVE MG/DL NEGATIVE UA KETONE DIPSTICK (test code=KETU) NEGATIVE MG/DL NEGATIVE UA SPECIFIC GRAVITY (test code=SGU) 1.015 1.003-1.030 UA BLOOD DIPSTICK (test code=ADAM) NEGATIVE Allan/mm3 NEGATIVE UA PH DIPSTICK (test code=MARJORIE) 6.5 5.0-9.0 UA PROTEIN DIPSTICK (test code=PROU) NEGATIVE MG/DL NEGATIVE UA UROBILINIOGEN DIPSTICK (test code=URO) NORMAL MG/DL NORMAL UA NITRITE DIPSTICK (test code=YAZMIN) NEGATIVE NEGATIVE UA LEUKOCYTE ESTERASE DIPSTICK (test code=LEUU) NEGATIVE /mm3 NEGATIVE UA CULTURE NEEDED? (test code=UACULT) Criteria Culture Chk UR HCG [id number] 09:05:00* Test Item Value Reference Range Comments UR HCG QUAL (test code=HCGQLU) NEGATIVE CBC W/AUTO [id number] 08:48:00* Test Item Value Reference Range Comments WHITE BLOOD CELL (test code=WBC) 6.3 K/MM3 3.8-9.8 RED BLOOD CELL (test code=RBC) 5.21 M/MM3 3.58-4.97 HEMOGLOBIN (test code=HGB) 11.5 G/DL 11.2-14.9 HEMATOCRIT (test code=HCT) 38.0 % 33.2-43.5 MEAN CELL VOLUME (test code=MCV) 73 fL 80.7-99.1 MEAN CELL HGB (test code=MCH) 22.1 pg 27.0-34.1 MEAN CELL HGB CONCETRATION (test code=MCHC) 30.3 % 32.2-35.7 RED CELL DISTRIBUTION WIDTH (test code=RDW) 13.4 % 12.1-15.2 PLATELET COUNT (test code=PLT) 179 K/MM3 129-368 MEAN PLATELET VOLUME (test code=MPV) 11.6 fl 7.4-10.4 NEUTROPHIL % (test code=NT%) 66.2 % 43-75 IMMATURE GRANULOCYTE % (test code=IG%) 0.3 % 0.0-2.0 LYMPHOCYTE % (test code=LY%) 24.4 % 14-44 MONOCYTE % (test code=MO%) 6.9 % 4-13 EOSINOPHIL % (test code=EO%) 1.9 % 0-6 BASOPHIL % (test code=BA%) 0.3 % 0-2 NUCLEATED RBC % (test code=NRBC%) 0.0 % 0-1.0 NEUTROPHIL # (test code=NT#) 4.2 K/mm3 2.0-7.6 IMMATURE GRANULOCYTE # (test code=IG#) 0.02 x10 3/uL 0-0.03 LYMPHOCYTE # (test code=LY#) 1.6 K/mm3 1.0-3.8 MONOCYTE # (test code=MO#) 0.44 K/mm3 0.1-0.8 EOSINOPHIL # (test code=EO#) 0.1 K/mm3 0.0-0.2 BASOPHIL # (test code=BA#) 0.02 K/mm3 0.0-0.2 NUCLEATED RBC # (test code=NRBC#) 0.0 K/mm3 0.0-0.1 TROPONIN I [id number] 08:42:00* Test Item Value Reference Range Comments TROPONIN I RAPID (test code=TROPIRAP) 0.00 NG/ML 0.00-0.05 CHEMISTRY 8 [id number] 08:38:00* Test Item Value Reference Range Comments IONIZED CALCIUM (test code=CAIABG) MMOL/L 1.12-1.24 ISTAT-TCO2 VENOUS (test code=TCO2VP) MMOL/L 23-32 ISTAT-SODIUM (test code=NAP) MMOL/L 137-144 ISTAT-POTASSIUM (test code=KP) MMOL/L 3.1-4.8 ISTAT-CHLORIDE (test code=CLP) MMOL/L 97-108 ISTAT-GLUCOSE (test code=GLUP) MG/DL 60-99 ISTAT-BUN (test code=BUNP) MG/DL 9-21 BEDSIDE CREATININE (test code=CREATBED) MG/DL 0.6-1.4 GLOMERULAR FILTRATION RATE POC (test code=GFRBED) 73 58-135 Reporting units: ml/min/1.73 m2 (Modified MDRD Formula)Reference Range: > or=60 ml/min/1.73 m2 CHEMISTRY 8 [id number] 08:38:00* Test Item Value Reference Range Comments IONIZED CALCIUM (test code=CAIABG) 1.15 MMOL/L 1.12-1.24 ISTAT-TCO2 VENOUS (test code=TCO2VP) 27 MMOL/L 23-32 ISTAT-SODIUM (test code=NAP) 137 MMOL/L 137-144 ISTAT-POTASSIUM (test code=KP) 4.3 MMOL/L 3.1-4.8 ISTAT-CHLORIDE (test code=CLP) 98 MMOL/L 97-108 ISTAT-GLUCOSE (test code=GLUP) 338 MG/DL 60-99 ISTAT-BUN (test code=BUNP) 13 MG/DL 9-21 BEDSIDE CREATININE (test code=CREATBED) 1.0 MG/DL 0.6-1.4 GLOMERULAR FILTRATION RATE POC (test code=GFRBED) 73 58-135 Reporting units: ml/min/1.73 m2 (Modified MDRD Formula)Reference Range: > or=60 ml/min/1.73 m2 POCT-GLUCOSE [id number] 13:18:00* Test Item Value Reference Range Comments POC-GLUCOSE METER (BEAKER) (test idyh=3829) 215 mg/dL 70-110 TESTED AT [facility] [address] [facility] [address] [id number] 13:18:00* Test Item Value Reference Range Comments FERRITIN (BEAKER) (test zqxx=599) 133 ng/mL 5-275 U/S, RENAL, [id number] 10:29:00Reason for exam:->left hydronephrosis. Need renal and bladder US to see if hydro resolvedFINAL REPORT RENAL ULTRASOUND HISTORY: Left hydronephrosis, follow-up of abnormal CT COMPARISON: CT abdomen and pelvis of 06/01/2018 TECHNIQUE: Real-time ultrasound of the kidneys was performed. FINDINGS: The kidneys are normal in echogenicity. The right kidney measures 10.0 cm in length and the left kidney measures 13.1 cm in length. Renal cortical thickness measures 1.1 cm on the right and 1.1 cm on the left. Moderate left hydronephrosis, without appreciable change. No right hydronephrosis. No shadowing calculi are visualized. No renal mass lesion. Limited Doppler evaluation of the bilateral main renal arteries and veins demonstrated patency. There is a Benitez catheter in the bladder. There is low level echogenic material throughout the bladder suggestive of debris /precipitants or blood products. IMPRESSION: Moderate left hydronephrosis, witho ut appreciable change. Signed: Yamila Nogueira Verified Date/Time: 06/03 10:29:29 Reading Location: [address] Transitional Reading Room El ectronically signed by: YAMILA NOGUEIRA MD on 06/03/2018 10:29 AM POCT-GLUCOSE [id number] 07:35:00* Test Item Value Reference Range Comments POC-GLUCOSE METER (BEAKER) (test mlgl=4417) 169 mg/dL 70-110 TESTED AT [facility] [address] [facility] [address] POCT-GLUCOSE [id number] 21:38:00* Test Item Value Reference Range Comments POC-GLUCOSE METER (BEAKER) (test tlgd=9262) 168 mg/dL 70-110 TESTED AT [place] [id number] [facility] [address] POCT-GLUCOSE [id number] 17:38:00* Test Item Value Reference Range Comments POC-GLUCOSE METER (BEAKER) (test mckr=8215) 151 mg/dL 70-110 TESTED AT [address] [address] POCT-GLUCOSE [id number] 12:08:00* Test Item Value Reference Range Comments POC-GLUCOSE METER (BEAKER) (test jkwy=0798) 301 mg/dL 70-110 Notified AMBAR DE GUZMAN/TESTED AT [address] [address] HEMOGLOBIN [id number] 11:07:00* Test Item Value Reference Range Comments HEMOGLOBIN A1C (BEAKER) (test raih=272) 13.0 % 4.3-6.1 IRON, TIBC, % SAT. (WITHOUT FERRITIN)2018-06-02 09:59:00* Test Item Value Reference Range Comments IRON (BEAKER) (test auba=782) 20 ug/dL 40-160 TOTAL IRON BINDING CAPACITY (BEAKER) (test outx=518) 179 ug/dL 250-450 IRON % SATURATION (2) (BEAKER) (test iuva=2503) 11 % 20-55 POCT-GLUCOSE [id number] 07:22:00* Test Item Value Reference Range Comments POC-GLUCOSE METER (BEAKER) (test dazm=4862) 229 mg/dL 70-110 TESTED AT [address] [address] [id number] 07:02:00* Test Item Value Reference Range Comments MAGNESIUM (BEAKER) (test vrap=847) 1.7 mg/dL 1.6-2.6 BASIC METABOLIC [id number] 07:02:00* Test Item Value Reference Range Comments SODIUM (BEAKER) (test lsmz=730) 138 meq/L 136-145 POTASSIUM (BEAKER) (test lprz=662) 3.8 meq/L 3.5-5.1 CHLORIDE (BEAKER) (test fzto=607) 108 meq/L 98-107 CO2 (BEAKER) (test tetj=132) 23 meq/L 22-29 BLOOD UREA NITROGEN (BEAKER) (test qtxn=236) 9 mg/dL 7-21 CREATININE (BEAKER) (test gxrh=870) 0.77 mg/dL 0.57-1.25 GLUCOSE RANDOM (BEAKER) (test puvf=720) 206 mg/dL 70-105 CALCIUM (BEAKER) (test hiqk=966) 8.8 mg/dL 8.4-10.2 EGFR (BEAKER) (test snsj=8781) 99 mL/min/1.73 sq m ESTIMATED GFR IS NOT ACCURATE CREATININE CLEARANCE IN PREDICTING GLOMERULAR FILTRATION RATE. ESTIMATED GFR IS NOT APPLICABLE FOR DIALYSIS PATIENTS. CBC W/PLT COUNT & AUTO [id number] 05:16:00* Test Item Value Reference Range Comments WHITE BLOOD CELL COUNT (BEAKER) (test ctip=548) 8.6 K/ L 3.5-10.5 RED BLOOD CELL COUNT (BEAKER) (test ggqq=998) 4.17 M/ L 3.93-5.22 HEMOGLOBIN (BEAKER) (test jwuc=992) 9.0 GM/DL 11.2-15.7 HEMATOCRIT (BEAKER) (test qmqg=672) 29.8 % 34.1-44.9 MEAN CORPUSCULAR VOLUME (BEAKER) (test zngq=005) 71.5 fL 79.4-94.8 MEAN CORPUSCULAR HEMOGLOBIN (BEAKER) (test qlvl=955) 21.6 pg 25.6-32.2 MEAN CORPUSCULAR HEMOGLOBIN CONC (BEAKER) (test huek=082) 30.2 GM/DL 32.2-35.5 RED CELL DISTRIBUTION WIDTH (BEAKER) (test rpvi=392) 13.2 % 11.7-14.4 PLATELET COUNT (BEAKER) (test pdkh=352) 211 K/CU MM 150-450 MEAN PLATELET VOLUME (BEAKER) (test xsge=779) 10.9 fL 9.4-12.3 NUCLEATED RED BLOOD CELLS (BEAKER) (test zwai=823) 0 /100 WBC 0-0 NEUTROPHILS RELATIVE PERCENT (BEAKER) (test cnar=858) 76 % LYMPHOCYTES RELATIVE PERCENT (BEAKER) (test ysvo=038) 14 % MONOCYTES RELATIVE PERCENT (BEAKER) (test doij=822) 8 % EOSINOPHILS RELATIVE PERCENT (BEAKER) (test lniw=408) 1 % BASOPHILS RELATIVE PERCENT (BEAKER) (test efim=077) 0 % NEUTROPHILS ABSOLUTE COUNT (BEAKER) (test avkx=734) 6.48 K/ L 1.56-6.13 LYMPHOCYTES ABSOLUTE COUNT (BEAKER) (test uuwz=197) 1.23 K/ L 1.18-3.74 MONOCYTES ABSOLUTE COUNT (BEAKER) (test bwrs=519) 0.69 K/ L 0.24-0.36 EOSINOPHILS ABSOLUTE COUNT (BEAKER) (test aydm=624) 0.06 K/ L 0.04-0.36 BASOPHILS ABSOLUTE COUNT (BEAKER) (test fcjw=681) 0.01 K/ L 0.01-0.08 IMMATURE GRANULOCYTES-RELATIVE PERCENT (BEAKER) (test soak=4064) 1 % 0-1 POCT-GLUCOSE [id number] 21:17:00* Test Item Value Reference Range Comments POC-GLUCOSE METER (BEAKER) (test qkyk=4784) 212 mg/dL 70-110 TESTED AT [facility] [address] [facility] [address] BASIC METABOLIC [id number] 18:00:00* Test Item Value Reference Range Comments SODIUM (BEAKER) (test ypqd=078) 137 meq/L 136-145 POTASSIUM (BEAKER) (test cgzo=757) 3.5 meq/L 3.5-5.1 CHLORIDE (BEAKER) (test ltwu=920) 106 meq/L 98-107 CO2 (BEAKER) (test uywi=890) 23 meq/L 22-29 BLOOD UREA NITROGEN (BEAKER) (test jhfy=138) 8 mg/dL 7-21 CREATININE (BEAKER) (test wquj=498) 0.79 mg/dL 0.57-1.25 GLUCOSE RANDOM (BEAKER) (test iztl=999) 174 mg/dL 70-105 CALCIUM (BEAKER) (test wrug=959) 8.8 mg/dL 8.4-10.2 EGFR (BEAKER) (test tavu=4495) 96 mL/min/1.73 sq m ESTIMATED GFR IS NOT ACCURATE CREATININE CLEARANCE IN PREDICTING GLOMERULAR FILTRATION RATE. ESTIMATED GFR IS NOT APPLICABLE FOR DIALYSIS PATIENTS. POCT-GLUCOSE [id number] 12:51:00* Test Item Value Reference Range Comments POC-GLUCOSE METER (BEAKER) (test msiu=8237) 175 mg/dL 70-110 TESTED AT [facility] [address] [facility] [address] POCT-GLUCOSE [id number] 12:03:00* Test Item Value Reference Range Comments POC-GLUCOSE METER (BEAKER) (test pjwi=3064) 171 mg/dL 70-110 TESTED AT [facility] [id number] [place] [address] POCT-GLUCOSE [id number] 11:33:00* Test Item Value Reference Range Comments POC-GLUCOSE METER (BEAKER) (test vdhn=6623) 129 mg/dL 70-110 TESTED AT [facility] [address] [place] [address] URINALYSIS W/ REFLEX URINE [id number] 11:12:00* Test Item Value Reference Range Comments COLOR (BEAKER) (test mxcv=861) Yellow CLARITY (BEAKER) (test orzf=524) Cloudy SPECIFIC GRAVITY UA (BEAKER) (test teuw=103) 1.010 1.001-1.035 PH UA (BEAKER) (test arad=942) 5.5 5.0-8.0 PROTEIN UA (BEAKER) (test tjsk=703) 100 mg/dL Negative GLUCOSE UA (BEAKER) (test udck=623) 500 mg/dL Negative KETONES UA (BEAKER) (test tcvw=253) Negative Negative BILIRUBIN UA (BEAKER) (test nles=923) Negative Negative BLOOD UA (BEAKER) (test vxtu=704) Moderate Negative NITRITE UA (BEAKER) (test pagu=943) Negative Negative LEUKOCYTE ESTERASE UA (BEAKER) (test yoxf=775) Trace Negative UROBILINOGEN UA (BEAKER) (test kxvg=290) 0.2 mg/dL 0.2-1.0 BACTERIA (BEAKER) (test vmde=314) Many RBC UA-MANUAL (BEAKER) (test rzdu=8130) 10-20 /HPF WBC UA-MANUAL (BEAKER) (test wucr=9895) 20-50 /HPF SQUAMOUS EPITHELIAL MANUAL (BEAKER) (test mrxk=3981) <5 /HPF SOURCE(BEAKER) (test ptlt=0688) POCT-GLUCOSE [id number] 11:01:00* Test Item Value Reference Range Comments POC-GLUCOSE METER (BEAKER) (test enhn=4145) 151 mg/dL 70-110 TESTED AT [facility] [address] [facility] [address] POTASSIUM (REPEAT FOR HEMOLYSIS)2018-06-01 10:38:00* Test Item Value Reference Range Comments POTASSIUM (MARY) (test abyu=929) 4.2 meq/L 3.6-5.5 POCT-GLUCOSE [id number] 09:28:00* Test Item Value Reference Range Comments POC-GLUCOSE METER (MARY) (test rqcp=9072) 476 mg/dL 70-110 Verify with Lab draw/TESTED AT [facility] [address] [facility] [address] [address], [id number] 08:46:00FINAL REPORT CT ABDOMEN AND PELVIS WITHOUT IV CONTRAST History provided: Hematuria COMPARISON STUDY: None TECHNIQUE: Spiral CT cuts were performed through the abdomen and pelvis with no contrast administered. FINDINGS: Lung bases unremarkable. Normal unenhanced appearance of the liver, spleen, and pancreas. Gallbladder normal in size. Normal unenhanced appearance of the adrenals. Kidneys are normal in size. There is fairly significant left hydronephrosis and hydroureter with dilatation of the left ureter to the level of the UV junction. No stone is identified. I do not have a history as to whether or not any surgery has been performed. In any event, I would strongly recommend further evaluation with cystoscopy and retrograde study. No bladder stones are evident, and the bladder is normal in size. There are air droplets within the bladder which may be normal if the patient has been recently catheterized. No dilated bowel loops. No pelvic mass or free pelvic fluid. IMPRESSION: Significant left hydronephrosis and hydroureter to the level of the UV junction, with no stone identified. Please correlate with any surgical history. Recommend cystoscopy and retrograde study. COMMENT: This exam was performed according to our departmental dose-optimization program, which includes automated exposure control, adjustment of the mA and/or kV according to patient size and/or use of iterative reconstruction technique. Signed: Taran Rosenthal MDReport Verified Date/Time: 06/01/2018 08:46:12 Reading Location: [address] Radiology Reading Room REHENSIVE METABOLIC [id number] 08:23:00* Test Item Value Reference Range Comments TOTAL PROTEIN (BEAKER) (test yhpr=787) 7.3 gm/dL 6.0-8.5 ALBUMIN (BEAKER) (test vjbr=0116) 3.6 g/dL 3.5-5.0 ALKALINE PHOSPHATASE (BEAKER) (test ubml=527) 156 U/L 30-115 BILIRUBIN TOTAL (BEAKER) (test vkxp=518) 0.6 mg/dL 0.1-1.2 SODIUM (BEAKER) (test edrh=593) 132 meq/L 135-148 POTASSIUM (BEAKER) (test qsrj=456) 5.8 meq/L 3.6-5.5 CHLORIDE (BEAKER) (test ubjg=292) 99 meq/L 98-106 CO2 (BEAKER) (test fbju=242) 17 meq/L 24-32 BLOOD UREA NITROGEN (BEAKER) (test evqw=520) 10 mg/dL 10-26 CREATININE (BEAKER) (test mhtd=506) 0.60 mg/dL 0.50-1.20 GLUCOSE RANDOM (BEAKER) (test mmib=899) 456 mg/dL 70-110 CALCIUM (BEAKER) (test pelc=476) 8.4 mg/dL 8.5-10.5 AST (SGOT) (BEAKER) (test miql=484) 42 U/L 5-40 ALT (SGPT) (BEAKER) (test hwtd=024) 22 U/L 5-50 EGFR (BEAKER) (test dubv=8577) 132 mL/min/1.73 sq m ESTIMATED GFR IS NOT ACCURATE CREATININE CLEARANCE IN PREDICTING GLOMERULAR FILTRATION RATE. ESTIMATED GFR IS NOT APPLICABLE FOR DIALYSIS PATIENTS. CBC W/PLT COUNT & AUTO [id number] 08:01:00* Test Item Value Reference Range Comments WHITE BLOOD CELL COUNT (BEAKER) (test yfhs=400) 9.3 10e3/i? L 4.0-10.0 RED BLOOD CELL COUNT (BEAKER) (test oluv=100) 4.32 10e6/i? L 4.00-5.00 HEMOGLOBIN (BEAKER) (test vbmw=810) 9.7 g/dL 12.0-15.0 HEMATOCRIT (BEAKER) (test dbkh=359) 30.2 % 36.0-45.0 MEAN CORPUSCULAR VOLUME (BEAKER) (test ivyu=004) 69.9 fL 82.0-99.0 MEAN CORPUSCULAR HEMOGLOBIN (BEAKER) (test eabf=760) 22.4 pg 27.0-33.0 MEAN CORPUSCULAR HEMOGLOBIN CONC (BEAKER) (test bfvn=674) 32.0 g/dL 32.0-36.0 RED CELL DISTRIBUTION WIDTH (BEAKER) (test zwhi=697) 14.2 % 10.3-14.2 PLATELET COUNT (BEAKER) (test jmlt=385) 235 10e3/i? L 150-430 MEAN PLATELET VOLUME (BEAKER) (test pfvy=062) 8.8 fL 6.5-10.5 NEUTROPHILS RELATIVE PERCENT (BEAKER) (test ilng=442) 71 % LYMPHOCYTES RELATIVE PERCENT (BEAKER) (test rxkl=090) 15 % MONOCYTES RELATIVE PERCENT (BEAKER) (test unct=538) 11 % EOSINOPHILS RELATIVE PERCENT (BEAKER) (test ketf=212) 2 % BASOPHILS RELATIVE PERCENT (BEAKER) (test ksaf=443) 1 % NEUTROPHILS ABSOLUTE COUNT (BEAKER) (test fyxw=123) 6.58 10e3/i? L 1.80-8.00 LYMPHOCYTES ABSOLUTE COUNT (BEAKER) (test bmxp=795) 1.40 10e3/i? L 1.48-4.50 MONOCYTES ABSOLUTE COUNT (BEAKER) (test dhof=813) 0.98 10e3/i? L 0.00-1.30 EOSINOPHILS ABSOLUTE COUNT (BEAKER) (test wxxs=331) 0.19 10e3/i? L 0.00-0.50 BASOPHILS ABSOLUTE COUNT (BEAKER) (test uujt=293) 0.11 10e3/i? L 0.00-0.20 URINALYSIS W/ REFLEX URINE [id number] 07:36:00* Test Item Value Reference Range Comments COLOR (BEAKER) (test cwon=097) Yellow CLARITY (BEAKER) (test evll=433) Cloudy SPECIFIC GRAVITY UA (BEAKER) (test rvqa=513) 1.010 1.001-1.035 PH UA (BEAKER) (test nwlp=678) 5.5 5.0-8.0 PROTEIN UA (BEAKER) (test zlbq=130) >=300 mg/dL Negative GLUCOSE UA (BEAKER) (test wgnt=307) 500 mg/dL Negative KETONES UA (BEAKER) (test nhck=222) Negative Negative BILIRUBIN UA (BEAKER) (test vske=981) Negative Negative BLOOD UA (BEAKER) (test yoxh=125) Large Negative NITRITE UA (BEAKER) (test xlaf=240) Negative Negative LEUKOCYTE ESTERASE UA (BEAKER) (test nbab=809) Small Negative UROBILINOGEN UA (BEAKER) (test cqmo=296) 0.2 mg/dL 0.2-1.0 BACTERIA (BEAKER) (test bkwy=644) Many RBC UA-MANUAL (BEAKER) (test ojuk=7271) >100 /HPF WBC UA-MANUAL (BEAKER) (test ujrv=7928) >100 /HPF SQUAMOUS EPITHELIAL MANUAL (BEAKER) (test qrhs=0989) <5 /HPF SOURCE(BEAKER) (test jtbf=6993) SCREEN, [id number] 07:27:00* Test Item Value Reference Range Comments TEST URINE (BEAKER) (test lsnl=816) Negative RAD, FOOT, MIN 3 VIEWS, [id number] 02:02:00Reason for exam:->FALLIs the patient ?->UnknownShould this be performed at the bedside?->NoFINAL REPORT LEFT FOOT SERIES, 3 VIEWS CLINICAL INDICATION: Fall, pain IMPRESSION: There are mild to moderate diffuse degenerative changes. The shaft of the proximal phalanx of the left fifth toe is associated with cohen btle cortical irregularity, chronicity indeterminate. A nondisplaced fracture wo uld be a consideration in the appropriate clinical setting. Recommend clinical c orrelation with patient's point of maximum tenderness and mechanism of injury. M ild fullness of the soft tissues may reflect patient's body habitus, nonspecific swelling and/or a contusion. No evidence of soft tissue emphysema or radiopaque foreign body. Signed: Sergio Jean MDReport Verified Date/Time: 04/28/2018 02: 02:39 Reading Location: [address] Reading Room Electronical ly signed by: SERGIO JEAN M.D. on 04/28/2018 02:02 AM RAD, LEG, TIBIA 2018-04-28 01:55:00Reason for exam:->FALLIs the patient ?->NoShould this be performed at the bedside?->NoFINAL REPORT EXAMINATION: Right tibia and fibula series, AP and lateral views CLINICAL INDICATION: Fall, leg pain IMPRESSION: There is focal cortical buckling of the distal left fibular metadiaphysis compatible with sequela from a fracture, chronicity indeterminate. Although the finding may reflect callus from an old injury, an acute buckle fracture would also be a consideration in the appropriate setting. Recommend clinical correlation with patient's point of maximum tenderness and mechanism of injury. Signed: Sergio Jean Verified Date/Time: 04/28/2018 01:55:33 Reading Location: [address] Transitional Reading Room , LEG, [id number] 01:52:00Reason for exam:->FALLIs the patient ?->NoShould this be performed at the bedside?->NoFINAL REPORT EXAMINATION: Left tibia and fibula series, AP and lateral views CLINICAL INDICATION: Fall, pain IMPRESSION: Bony alignment is anatomic. No definite evidence of acute fracture. If occult injury is suspected, cross-sectional imaging could be performed for further evaluation. Signed: Sergio Jean Verified Date/Time: 04/28/2018 01:52:48 Reading Location: [address] Transitional Reading Room
[2019-10-17] MEDS ORDERED: CYCLOBENZAPRINE HCL 10 MG TAB ONE (11:17)
[2019-10-17] MEDS ORDERED: IBUPROFEN 600 MG TAB ONE (11:18)
--- NOTE | 2019-10-17 12:22 | Diagnostic Imaging Report ---
EXAMINATION: T SPINE 2VW - HOPD, C SPINE 2--3 VEWS - HOPD, L SPINE 2-3 VEWS - HOPD INDICATION: Back pain, trauma COMPARISON: None FINDINGS: 3 views of the cervical spine, 3 views of the thoracic spine, and 3 views of the lumbar spine were obtained. Cervical spine: No acute fracture or dislocation. Alignment appears anatomic. Minimal multilevel degenerative changes with small osteophyte formation. Prevertebral soft tissues are normal in thickness. Thoracic spine: No acute fracture or dislocation. Vertebral body heights are well-maintained. Minimal degenerative changes with small osteophyte formation. The visualized portions of the lungs are clear. Left chest port terminates at the superior cavoatrial junction. Lumbar spine: No acute fracture or dislocation. Vertebral body heights are maintained. No substantial degenerative change. IMPRESSION: No acute osseous injury of the cervical, thoracic, or lumbar spine. Signed by: Jeannie Quiros MD on 10/17/2019 12:19 PM
[2019-10-17 12:53] VITALS: BP 115/75
== END 2019-10-17 13:13 | disposition home or self-care (01) ==
LOC: FSED 10:21
DX: S16.1XXA Strain of muscle, fascia and tendon at neck level, initial encounter (principal); S29.012A Strain of muscle and tendon of back wall of thorax, initial encounter; S39.012A Strain of muscle, fascia and tendon of lower back, initial encounter; E11.65 Type 2 diabetes mellitus with hyperglycemia; V43.53XA Car driver injured in collision with pick-up truck in traffic accident, initial encounter; Y92.410 Unspecified street and highway as the place of occurrence of the external cause; I25.10 Atherosclerotic heart disease of native coronary artery without angina pectoris; E11.42 Type 2 diabetes mellitus with diabetic polyneuropathy; Z79.4 Long term (current) use of insulin; Z85.3 Personal history of malignant neoplasm of breast; Z92.21 Personal history of antineoplastic chemotherapy; Z92.3 Personal history of irradiation; Z95.5 Presence of coronary angioplasty implant and graft; I34.1 Nonrheumatic mitral (valve) prolapse; F17.210 Nicotine dependence, cigarettes, uncomplicated
CPT/HCPCS: 72040; 72070; 72100; 99283

== ENCOUNTER 2020-02-25 17:02 | Emergency (ER) | payer SELFPAY ==
[~2020-02-25] VITALS: Ht 162.6 cm; Wt 94.8 kg
[2020-02-25 18:24] LABS: BASOPHILS % 0.2 % (0.0-1.0); EOSINOPHILS % 0.2 % (0.0-6.0); HEMATOCRIT 31.7 % (34.2-44.1); HEMOGLOBIN 9.7 g/dL (12.0-16.0); LYMPHOCYTES # (AUTO) 1.3 (1.0-3.2); LYMPHOCYTES % 11.3 % (18.0-39.1); MEAN CORPUSCULAR HGB CONC 30.6 g/dL (31-35); MEAN CORPUSCULAR VOLUME 71.9 fL (81-99); MONOCYTES # (AUTO) 0.8 (0.2-0.8); MONOCYTES % 7.6 % (4.4-11.3); NEUTROPHILS # (AUTO) 8.9 (2.1-6.9); NEUTROPHILS % 79.9 % (38.7-80.0); PLATELET COUNT 153 x10e3/uL (140-360); RED BLOOD COUNT 4.41 x10e6/uL (3.6-5.1); RED CELL DISTRIBUTION WIDTH 12.7 % (11.7-14.4)
[2020-02-25 18:33] LABS: INR 1.01; PROTHROMBIN TIME 13.9 seconds (11.9-14.5)
[2020-02-25 18:43] LABS: ALANINE AMINOTRANSFERASE 11 IU/L (0-55); ALBUMIN/GLOBULIN RATIO 0.7 (0.8-2.0); ALKALINE PHOSPHATASE 91 IU/L (40-150); ANION GAP 14.8 mmol/L (8-16); BLOOD UREA NITROGEN 9 mg/dL (7-26); BUN/CREATININE RATIO 8 (6-25); CALCIUM 8.5 mg/dL (8.4-10.2); CARBON DIOXIDE 21 mmol/L (22-29); CHLORIDE 101 mmol/L (98-107); CREATINE KINASE 38 IU/L (29-168); CREATININE, SERUM 1.13 mg/dL (0.57-1.11); EST GLOMERULAR FILTRATION RATE > 60 ML/MIN (60-); GLUCOSE 375 mg/dL (74-118); POTASSIUM 3.8 mmol/L (3.5-5.1); SODIUM 133 mmol/L (136-145)
[2020-02-25] MEDS ORDERED: SODIUM CHLORIDE 0.9% 1000ML 1,000 ML IV STA ×4 (19:11→23:01)
--- NOTE | 2020-02-25 19:14 | Emergency Department Note ---
History of Present Illnes History of Present Illness Chief Complaint: COVID PUI History of Present Illness This is a 45 year old female presents to the ED for myalgias and fevers of 3 days duration Historian: Patient Arrival Mode: Car Onset (how long ago): day(s) (4) Radiation: Reports extremity Severity: moderate Onset quality: gradual Duration (how long): day(s) (3) Timing of current episode: constant Progression: worsening Associated symptoms: Reports chest pain, Reports fever/chills, Reports malaise, Reports weakness Treatments prior to arrival: none Past Medical/Family History Physician Review I have reviewed the patient's past medical and family history. Any updates have been documented here. Past Medical History Recent Fever: Yes Clinical Suspicion of Infectio: Yes New/Unexplained Change in Ment: No Past Medical History: Diabetes, CAD, Cancer, DVT/PE Other Medical History: mitral valve prolapse breast cancer Past Surgical History: , Lumpectomy Other Surgery: left chest port a cath placement Social History Smoking Cessation: Never Smoker Alcohol Use: Occasional Any Illegal Drug Use: No TB Exposure/Symptoms: No Physically hurt or threatened: No Other Last Tetanus: UNK Any Pre-Existing Lines (PICC,: Yes (L. UPPER CHEST PORTACATH) Is patient up to date on immun: Yes Last Flu: NO Last Pneumovax: NO Review of Systems Review of Systems Constitutional: Reports fever, Reports malaise EENTM: Reports no symptoms Cardiovascular: Reports no symptoms Respiratory: Reports no symptoms Gastrointestinal: Reports no symptoms Genitourinary: Reports no symptoms Musculoskeletal: Reports no symptoms Integumentary: Reports no symptoms Neurological: Reports no symptoms Psychological: Reports no symptoms Endocrine: Reports no symptoms Hematological/Lymphatic: Reports no symptoms Physical Exam Related Data Allergies: Coded Allergies: No Known Allergies (Unverified , 10/17/19) Triage Vital Signs Vital Signs Date Time Temp Pulse Resp B/P (MAP) Pulse Ox O2 Delivery O2 Flow Rate FiO2 02/25/20 17:28 100.4 101 14 124/74 100 Physical Exam CONSTITUTIONAL Constitutional: Present well-developed, Present well-nourished HENT HENT: Present normocephalic, Present atraumatic, Present oropharynx clear/moist, Present nose normal HENT L/R: Present left ext ear normal, Present right ext ear normal EYES Eyes: Reports PERRL, Reports conjunctivae normal NECK Neck: Present ROM normal PULMONARY Pulmonary: Present effort normal, Present breath sounds normal CARDIOVASCULAR Cardiovascular: Present regular rhythm, Present heart sounds normal, Present capillary refill normal, Present normal rate GASTROINTESTINAL Abdominal: Present soft, Present nontender, Present bowel sounds normal GENITOURINARY Genitourinary: Present exam deferred SKIN Skin: Present warm, Present dry MUSCULOSKELETAL Musculoskeletal: Present ROM normal NEUROLOGICAL Neurological: Present alert, Present oriented x 3, Present no gross motor or sensory deficits PSYCHOLOGICAL Psychological: Present mood/affect normal, Present judgement normal Results Laboratory Result Diagram: 02/25/20 1753 02/25/20 1753 Laboratory Laboratory Tests Test 02/25/20 17:53 White Blood Count 11.08 x10e3/uL (4.8-10.8) Red Blood Count 4.41 x10e6/uL (3.6-5.1) Hemoglobin 9.7 g/dL (12.0-16.0) Hematocrit 31.7 % (34.2-44.1) Mean Corpuscular Volume 71.9 fL (81-99) Mean Corpuscular Hemoglobin 22.0 pg (28-32) Mean Corpuscular Hemoglobin Concent 30.6 g/dL (31-35) Red Cell Distribution Width 12.7 % (11.7-14.4) Platelet Count 153 x10e3/uL (140-360) Neutrophils (%) (Auto) 79.9 % (38.7-80.0) Lymphocytes (%) (Auto) 11.3 % (18.0-39.1) Monocytes (%) (Auto) 7.6 % (4.4-11.3) Eosinophils (%) (Auto) 0.2 % (0.0-6.0) Basophils (%) (Auto) 0.2 % (0.0-1.0) Neutrophils # (Auto) 8.9 (2.1-6.9) Lymphocytes # (Auto) 1.3 (1.0-3.2) Monocytes # (Auto) 0.8 (0.2-0.8) Eosinophils # (Auto) 0.0 (0.0-0.4) Basophils # (Auto) 0.0 (0.0-0.1) Absolute Immature Granulocyte (auto 0.09 x10e3/uL (0-0.1) Prothrombin Time 13.9 seconds (11.9-14.5) Prothromb Time International Ratio 1.01 Activated Partial Thromboplast Time 19.0 seconds (23.8-35.5) Sodium Level 133 mmol/L (136-145) Potassium Level 3.8 mmol/L (3.5-5.1) Chloride Level 101 mmol/L (98-107) Carbon Dioxide Level 21 mmol/L (22-29) Anion Gap 14.8 mmol/L (8-16) Blood Urea Nitrogen 9 mg/dL (7-26) Creatinine 1.13 mg/dL (0.57-1.11) Estimat Glomerular Filtration Rate > 60 ML/MIN (60-) BUN/Creatinine Ratio 8 (6-25) Glucose Level 375 mg/dL (74-118) Calcium Level 8.5 mg/dL (8.4-10.2) Total Bilirubin 0.3 mg/dL (0.2-1.2) Aspartate Amino Transf (AST/SGOT) 13 IU/L (5-34) Alanine Aminotransferase (ALT/SGPT) 11 IU/L (0-55) Alkaline Phosphatase 91 IU/L (40-150) Creatine Kinase 38 IU/L (29-168) Creatine Kinase MB 0.50 ng/mL (0-5.0) Troponin I 0.018 ng/mL (0-0.300) B-Type Natriuretic Peptide 19.5 pg/mL (0-100) Total Protein 7.1 g/dL (6.5-8.1) Albumin 3.0 g/dL (3.5-5.0) Globulin 4.1 g/dL (2.3-3.5) Albumin/Globulin Ratio 0.7 (0.8-2.0) Lab results reviewed: Yes Imaging Imaging results reviewed: Yes Impressions [place] [address] Patient Name: NICOLE SPRING MR #: [id number] : 1975 Age/Sex: 45/F Req #: [id number] Adm Physician: Ordered by: BOBBY HOOD DO Report #: [id number] Location: ER Room/Bed: Procedure: [id number] CT/CT CHEST W Exam Date: 02/25/20 Exam Time: 2219 REPORT STATUS: Signed EXAM: CT Chest WITH contrast 02/25/2020 10:20 PM INDICATION: Dyspnea, history of breast cancer COMPARISON: None TECHNIQUE: Chest was scanned utilizing a multidetector helical scanner from the lung apex through the level of the adrenal glands with administration of IV contrast. Coronal and sagittal reformations were obtained. Routine protocol was performed. IV CONTRAST: 100 mL of Omnipaque 300 COMPLICATIONS: None RADIATION DOSE: Total DLP: 500 mGy*cm Estimated effective dose: (DLP x 0.014 x size factor) mSv CTDIvol has been reviewed. It is below the limits set by the Radiation Protocol Committee (RPC). Dose modulation, iterative reconstruction, and/or weight based adjustment of the mA/kV was utilized to reduce the radiation dose to as low as reasonably achievable. FINDINGS: LINES/ TUBES: Left chest wall port with left IJ central venous catheter component, tip in the superior cavoatrial junction.. LUNGS AND AIRWAYS: Multifocal ground glass opacities. Airways are normal. PLEURA: The pleural spaces are clear. HEART AND MEDIASTINUM: A 2.6 cm heterogeneous left thyroid lobe nodule. No mediastinal, hilar or axillary lymphadenopathy. The heart is normal in size. There is no pericardial effusion. UPPER ABDOMEN: Unremarkable. BONES: Degenerative changes. SOFT TISSUES: Unremarkable. IMPRESSION: Findings compatible with multifocal pneumonia, possibly viral. An indeterminate 2.6 cm left thyroid lobe nodule. Recommend nonemergent thyroid ultrasound. Signed by: Jimmy Damico DO on 02/25/2020 11:47 PM Dictated By: JIMMY DAMICO DO [id number] Transcribed By: SANNA on 02/25/209 COPY TO: BOBBY HOOD DO~ [facility] [place] [address] Patient Name: NICOLE SPRING MR #: [id number] : 1975 Age/Sex: 45/F Req #: [id number] Adm Physician: Ordered by: CARLTON BEE DO Report #: [id number] Location: ER Room/Bed: Procedure: [id number] DX/CHEST SINGLE (PORTABLE) Exam Date: 02/25/20 Exam Time: 1840 REPORT STATUS: Signed Examination: Single AP view of the chest. COMPARISON: None. INDICATION: Cough, bodyaches, chest pain IMPRESSION: 1. Lines and Tubes: Left upper chest Port-A-Cath, with catheter distal tip projecting at the cavoatrial junction. 2. Lungs are grossly clear. No consolidation or effusion. 3. Cardiomediastinal silhouette is normal. Pulmonary vasculature is normal. 4. No acute bony abnormalities. Signed by: Dr. Justin Vargas M.D. on 02/25/2020 7:40 PM Dictated By: JUSTIN VARGAS MD 39 Transcribed By: SANNA on 02/25/201939 COPY TO: CARLTON BEE DO~ Procedures 12 Lead ECG Interpretation ECG Interpretation : ECG: ECG 1 Lard Mixer: Interpreted by ED physician Date: Feb 25, 2020 Prior ECG tracings: reviewed Rhythm: sinus tachycardia Rate: tachycardia BPM: 101 ST segments normal: Yes T waves normal: Yes Clinical Impression: non-specific ECG Assessment & Plan Medical Decision Making MDM 45 yof with myalgias and fever of 3 days duration. Patient with pmh of breast CA in 2017. CT chest ordered to r/o PE. labs ordered to r/o ACS. Patient with (+) COVID-19 test Assessment & Plan Final Impression: (1) COVID-19 (2) Renal insufficiency (3) Atypical chest pain Depart Disposition: HOME, SELF-CARE Last Vital Signs Date Time Temp Pulse Resp B/P (MAP) Pulse Ox O2 Delivery O2 Flow Rate FiO2 02/25/20 18:42 96 16 139/89 95 02/25/20 17:28 100.4 Medications in the ED Sodium Chloride 1,000 ml @ 100 mls/hr Q10H STAT IV ; Start 02/25/20 at 19:11; Stop 02/26/20 at 05:10 Sodium Chloride 1,000 ml @ 0 mls/hr Q0M STAT IV ; Start 02/25/20 at 19:11; Stop 02/25/20 at 19:12; Status BOBBY TINEO DO Feb 25, 2020 19:14
[2020-02-25] MEDS ORDERED: KETOROLAC TROMETHAMINE 30 MG/ML VIAL IV NR ×2 (19:15→23:15)
--- NOTE | 2020-02-25 19:44 | Diagnostic Imaging Report ---
Examination: Single AP view of the chest. COMPARISON: None. INDICATION: Cough, bodyaches, chest pain IMPRESSION: 1. Lines and Tubes: Left upper chest Port-A-Cath, with catheter distal tip projecting at the cavoatrial junction. 2. Lungs are grossly clear. No consolidation or effusion. 3. Cardiomediastinal silhouette is normal. Pulmonary vasculature is normal. 4. No acute bony abnormalities. Signed by: Dr. Xiang Vargas M.D. on 02/25/2020 7:40 PM
[2020-02-25] MEDS ORDERED: ACETAMINOPHEN 325 MG TAB PO NR ×2 (20:00→23:15)
[2020-02-25] MEDS ORDERED: SODIUM CHLORIDE 0.9% 50ML 50 ML ONE ×2 (21:08→22:19)
[2020-02-25] MEDS ORDERED: IOPAMIDOL 370 MG/ML 200 ML INFUS..BTL INJ ONE ×2 (21:08→22:20)
--- NOTE | 2020-02-25 23:33 | NUR ---
LAB CALLED TO INFORM PT COVID POSITIVE, INFORMED ED .
--- NOTE | 2020-02-25 23:50 | Diagnostic Imaging Report ---
EXAM: CT Chest WITH contrast 02/25/2020 10:20 PM INDICATION: Dyspnea, history of breast cancer COMPARISON: None TECHNIQUE: Chest was scanned utilizing a multidetector helical scanner from the lung apex through the level of the adrenal glands with administration of IV contrast. Coronal and sagittal reformations were obtained. Routine protocol was performed. IV CONTRAST: 100 mL of Omnipaque 300 COMPLICATIONS: None RADIATION DOSE: Total DLP: 500 mGy*cm Estimated effective dose: (DLP x 0.014 x size factor) mSv CTDIvol has been reviewed. It is below the limits set by the Radiation Protocol Committee (RPC). Dose modulation, iterative reconstruction, and/or weight based adjustment of the mA/kV was utilized to reduce the radiation dose to as low as reasonably achievable. FINDINGS: LINES/ TUBES: Left chest wall port with left IJ central venous catheter component, tip in the superior cavoatrial junction.. LUNGS AND AIRWAYS: Multifocal ground glass opacities. Airways are normal. PLEURA: The pleural spaces are clear. HEART AND MEDIASTINUM: A 2.6 cm heterogeneous left thyroid lobe nodule. No mediastinal, hilar or axillary lymphadenopathy. The heart is normal in size. There is no pericardial effusion. UPPER ABDOMEN: Unremarkable. BONES: Degenerative changes. SOFT TISSUES: Unremarkable. IMPRESSION: Findings compatible with multifocal pneumonia, possibly viral. An indeterminate 2.6 cm left thyroid lobe nodule. Recommend nonemergent thyroid ultrasound. Signed by: Jimmy Damico DO on 02/25/2020 11:47 PM
[2020-02-26 00:07] VITALS: BP 141/86
== END 2020-02-26 00:22 | disposition home or self-care (01) ==
LOC: ER 17:02
DX: R50.9 Fever, unspecified (principal); R05 Cough; R07.89 Other chest pain; U07.1 COVID-19; N28.9 Disorder of kidney and ureter, unspecified; E11.9 Type 2 diabetes mellitus without complications; I25.10 Atherosclerotic heart disease of native coronary artery without angina pectoris; Z85.3 Personal history of malignant neoplasm of breast; Z86.718 Personal history of other venous thrombosis and embolism
CPT/HCPCS: 36415; 71045; 71260; 80053; 81025; 82550; 82553; 83880; 84484; 85025; 85610; 85730; 87635; 93005; 99284; J1885; J7030; Q9967

== ENCOUNTER 2020-03-11 19:18 | Inpatient (IN) | payer OTHER, SELFPAY ==
[~2020-03-11] VITALS: Ht 162.6 cm; Wt 92.5 kg
--- NOTE | 2020-03-11 20:05 | Emergency Department Note ---
History of Present Illnes History of Present Illness Chief Complaint: "left foot pain and white urine" History of Present Illness This is a 45 year old female, with a history of IDDM, hyperlipidemia, peripheral neuropathy, breast cancer treated in 2017 and in remission 2 years, Covid [address] [facility] on 02/25/2020, who presents with a three-week history of pain in the left fifth toe and "white, discolored urine." Patient states that she participated in one of the protests approximately 3-4 weeks ago and walked several miles, during which her shoe rubbed a blister on the left fifth toe. That progressively worsened, swelling, and a pustule developed at the base of the left fifth toe. Patient "popped" the blister at some point, and purulent material emerged. The pain and swelling of the left foot has persisted, making it difficult for patient to ambulate, so she presented for ER evaluation. Her diabetes has been uncontrolled for at least least the past month, as patient has been unable to continue her Lantus 15 units at bedtime, due to the fact that she was furloughed from her job and has been unable to afford any of her medications. She denies any fever, chills, nausea, or vomiting. Patient was seen at [facility] on 02/25/2020, and diagnosis Covid 19 pneumonia. She was discharged home where she recovered, but she has not had a repeat negative Covid test. She states that she has not had any fever for the past week, and her r espiratory symptoms have markedly improved. Patient states that since she was diagnosed Covid, her urine was initially dark brown, now it appears white. She denies any burning with urination, though there is some discomfort in the urethral area. She has some suprapubic cramping, that is intermittent. She denies any hematuria. She gives no history of recurrent UTI. She gives no hist ory of recurrent UTI. She is also complaining of some lower back pain, there is been intermittent. There is no flank pain. 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 Required: No Onset (how long ago): week(s) (3) Location: left lateral foot pain Quality: aching, pain with weight bearing Radiation: Reports non-radiation Severity: moderate Onset quality: gradual Duration (how long): week(s) (3 slightly elevated at receives hard to get meds were doing great) Timing of current episode: constant Progression: worsening Chronicity: new Context: Reports recent illness (patient diagnosed with Covid 19 pneumonia 02/25/2020), Reports trauma/injury (patient walks several miles, several weeks ago during a protest and her shoe erupted blister on the left fifth toe), Reports non-compliance w/ medications (noncompliance with insulin and other oral medications due to recent job loss and loss of insurance.) Relieving factors: rest Exacerbating factors: movement (weightbearing) Associated symptoms: Reports malaise; Denies chest pain, Denies cough, Denies fever/chills, Denies nausea/vomiting, Denies shortness of breath Treatments prior to arrival: none Risk factors: uncontrolled diabetes Past Medical/Family History Physician Review I have reviewed the patient's past medical and family history. Any updates have been documented here. Past Medical History Recent Fever: No Clinical Suspicion of Infectio: Yes New/Unexplained Change in Ment: No Past Medical History: Diabetes (IDDM), Cancer (cervicalright breast 2017 no CAD coronary artery disease and stent heart attack), Hyperlipedemia (as that she's had a DVT and PE or coronary artery disease for some reason is CAD and DVT/PE mitral valve prolapse DVT PE), DVT/PE (.2017 8 placed with analysis:) Other Medical History: mitral valve prolapse breast cancer - right breast 2017 Past Surgical History: (x3), Lumpectomy (right breast renal in her DVT PE is sorry to) Other Surgery: left chest port a cath placement Social History Smoking Cessation: Never Smoker Alcohol Use: Occasional (revealed better the left about 12:30 is 20 oh and 30 insulin has been 2 hours) Any Illegal Drug Use: No TB Exposure/Symptoms: No Physically hurt or threatened: No Family History Family history of heart diseas: No Other Last Tetanus: UNK Any Pre-Existing Lines (PICC,: Yes (left SC port a cath) Is patient up to date on immun: No Review of Systems Review of Systems Constitutional: Denies chills, Denies fever EENTM: Reports no symptoms Cardiovascular: Reports edema (swelling of left foot); Denies chest pain, Denies palpitations Respiratory: Reports no symptoms; Denies cough, Denies excessive phlegm production, Denies pain on inspiration, Denies dyspnea, Denies dyspnea on exertion Gastrointestinal: Denies abdominal pain, Denies nausea, Denies vomiting Genitourinary: Reports no symptoms Musculoskeletal: Reports no symptoms Integumentary: Denies change in color, Denies rash, Denies poor turgor Neurological: Denies headache, Denies numbness Psychological: Reports no symptoms Endocrine: Reports no symptoms Hematological/Lymphatic: Reports no symptoms Review of other systems: All other systems negative Physical Exam Related Data Allergies: Coded Allergies: No Known Allergies (Unverified , 10/17/19) Vital signs reviewed: Yes Physical Exam CONSTITUTIONAL Constitutional: Present well-developed, Present well-nourished; Absent ill appearing HENT HENT: Present normocephalic, Present atraumatic, Present oropharynx clear/moist, Present nose normal HENT L/R: Present left ext ear normal, Present right ext ear normal EYES Eyes: Reports PERRL, Reports conjunctivae normal NECK Neck: Present ROM normal PULMONARY Pulmonary: Present effort normal, Present other (faint bibasilar end-expiratory wheezes;); Absent breath sounds normal CARDIOVASCULAR Cardiovascular: Present regular rhythm, Present heart sounds normal, Present capillary refill normal, Present normal rate GASTROINTESTINAL Abdominal: Present soft, Present nontender, Present bowel sounds normal; Absent tender, Absent left CVA tenderness, Absent right CVA tenderness GENITOURINARY Genitourinary: Present exam deferred SKIN Skin: Present warm, Present dry, Present erythema (erythema and warmth of ventral aspect of left foot; dried, purulent material at the base of left 5th toe with ttp of this area w/o fluctuance;) MUSCULOSKELETAL Musculoskeletal: Present edema (ventral aspect of left foot), Present tenderness (ttp of ventral aspect of left foot, no fluctuance in) NEUROLOGICAL Neurological: Present alert, Present oriented x 3, Present no gross motor or sensory deficits PSYCHOLOGICAL Psychological: Present mood/affect normal, Present behavior normal Results Laboratory Laboratory CMP - nl except K+ = 5.4 (hemolyzed), CL = 94, Gluc = 435; CBC - nl, except h/h = 10.5/32.7; Urine Preg - nl; UA = cloudy, nitrite - positive, protein- 1+, blood - 2+, WBC - 11-20, RBC - 6- 10, bacteria - moderate, Epi - few; Urine Culture - sent; Lab results reviewed: Yes Imaging Imaging results reviewed: Yes Impressions [facility] [address] [place] [address] Patient Name: NICOLE SPRING MR #: [id number] : 1975 Age/Sex: 45/F Req #: [id number] Adm Physician: Ordered by: KATHERYN RICO MD Report #: [id number] Location: [facility] Room/Bed: Procedure: [id number] HOPD/FOOT 3 VIEW LT - HOPD Exam Date: 03/11/20 Exam Time: 2110 REPORT STATUS: Signed FOOT 3 VIEW LT - HOPD - 3 views HISTORY: Pain. COMPARISON: None available. FINDINGS: Bones: No acute displaced fracture. No discrete osseous erosion. Osseous alignment is within normal limits. Joints: The joint spaces are well-maintained. Soft tissues: Soft tissue irregularity of the tip of the left fifth digit. IMPRESSION: Soft tissue injury of the left fifth digit. No fracture or osseous erosion to suggest osteomyelitis. Signed by: Sergio Oropeza MD on 03/11/2020 9:39 PM Dictated By: SERGIO OROPEZA MD 38 Transcribed By: SANNA on 03/11/202138 COPY TO: KATHERYN RICO MD~ Diagnostics Tests Diagnostic test(s) reviewed: Yes Assessment & Plan Medical Decision Making MDM Consider diabetic foot ulcer, cellulitis, blood clot, foreign body in the foot Reassessment Reassessment 22:30 - discussed with patient the need for hospital admission for treatment of a significant diabetic foot ulcer with infection, that will likely require an MRI of the foot and surgical debridement. She also appears to have a urinary tract infection or pyelonephritis. She will also need IV antibiotics for the foot infection as well as for the urinary tract infection. Patient was agreeable to admission. 23:35 - case was discussed with Dr. Ortez, who is agreeable to admission. She requested that we consult Dr. Kahn of podiatry for evaluation of the diabetic foot ulcer. Due to patient's recent COVID19 pneumonia, on 02/25/2020 she will be admitted to a Covid unit and repeat testing will be performed. She is not currently having any respiratory symptoms. Patient's foot pain markedly improved with [place], and patient resting comfortably. 02:20 - pt received 5 Units of Regular Insulin, and glucose decreased to 212 mg/dl. Awaiting EMS transfer. Pt updated. Assessment & Plan Final Impression: (1) Diabetic foot ulcer associated with diabetes mellitus due to underlying condition (2) Hyperglycemia due to type 2 diabetes mellitus (3) UTI (urinary tract infection) with pyuria (4) COVID-19 (5) Hyperlipidemia Depart Disposition: ADMITTED KATHERYN RICO MD Mar 11, 2020 20:05
[2020-03-11] MEDS ORDERED: SODIUM CHLORIDE 0.9% 1000ML 1,000 ML IV SCH (21:15)
[2020-03-11] MEDS ORDERED: PIPER-TAZ 3.375 GM 50 ML IV ONE (21:15)
--- NOTE | 2020-03-11 21:43 | Diagnostic Imaging Report ---
FOOT 3 VIEW LT - HOPD - 3 views HISTORY: Pain. COMPARISON: None available. FINDINGS: Bones: No acute displaced fracture. No discrete osseous erosion. Osseous alignment is within normal limits. Joints: The joint spaces are well-maintained. Soft tissues: Soft tissue irregularity of the tip of the left fifth digit. IMPRESSION: Soft tissue injury of the left fifth digit. No fracture or osseous erosion to suggest osteomyelitis. Signed by: Maxi Catherine MD on 03/11/2020 9:39 PM
[2020-03-11 21:45] LABS: CLARITY,URINE CLOUDY (CLEAR); COLOR,URINE YELLOW (YELLOW); KETONES,URINE NEGATIVE (NEGATIVE); LEUKOCYTE ESTERASE ,URINE SMALL (NEGATIVE); NITRITE,URINE POSITIVE (NEGATIVE); PROTEIN,URINE DIPSTICK 1+ (NEGATIVE); URINE UROBILINOGEN 0.2 mg/dL (0.2 - 1)
[2020-03-11 21:46] LABS: BILIRUBIN,URINE NEGATIVE (NEGATIVE)
[2020-03-11 22:00] LABS: BACTERIA,URINE MODERATE /HPF; EPITHELIAL CELLS,URINE FEW /LPF
[2020-03-11] MEDS ORDERED: HYDROCODONE/APAP 5MG-325MG TAB PO ONE (23:15)
[2020-03-11] MEDS ORDERED: INSULIN REGULAR, HUMAN 100 UNIT/1 ML 3ML VIAL IV ONE (23:15)
[2020-03-11] MEDS ORDERED: CEFTRIAXONE SOD 1 GM/NS 50 ML 50 ML IV ONE (23:15)
[2020-03-11] MEDS ORDERED: ONDANSETRON HCL INJ 2MG/ML 2ML 2 MG/ML VIAL IV PRN (23:45)
[2020-03-11] MEDS ORDERED: SODIUM CHLORIDE FLUSH 10 ML SYR INJ PRN (23:45)
[2020-03-12] VITALS (9 sets, daily range): BP systolic 106–125; BP diastolic 64–82
[2020-03-12] MEDS: HYDROCODONE/APAP 10MG-325MG TAB PO PRN ×4 (05:44→20:46)
--- NOTE | 2020-03-12 07:37 | NUR ---
PATIENT IN BED WITH HEAD OF BED ELEVATED TALKING ON THE PHONE, NO DISTRESS NOTED. DRESSING INTACT TO LEFT FOOT. BED IN LOWER POSITION, CALL LIGHT AT REACH.
[2020-03-12] MEDS ORDERED: ZOLPIDEM TARTRATE 5 MG TAB PO PRN (07:45)
[2020-03-12] MEDS ORDERED: DEXTROSE 50% SYRINGE 50 ML IV PRN (07:45)
[2020-03-12] MEDS ORDERED: ACETAMINOPHEN 325 MG TAB PO PRN ×2 (07:45→08:15)
[2020-03-12] MEDS ORDERED: GUAIFENESIN/CODEINE 10 ML CUP PO PRN (07:45)
--- NOTE | 2020-03-12 08:28 | Consultation ---
DATE OF CONSULTATION: Pulmonary Critical Care Consultation CHIEF COMPLAINT: Foot pain and ulceration and positive COVID test. HISTORY OF PRESENT ILLNESS: The patient is a 45-year-old woman. She has a history of breast cancer in 2017, that required lumpectomy, radiation, and chemotherapy. She has followed with the oncologist and is still in remission. She was seen at the emergency department on the 24 of February with some cough and dyspnea. She tested positive for COVID at that time. Her respiratory symptoms have subsequently improved and she only has minimal cough and minimal dyspnea. She also complains of a worsening ulceration on her left foot. Apparently, it has been present for several weeks. She has diabetes, but has been unable to take her insulin for 2 months because of loss of insurance. She also notes some fevers. PAST SURGICAL HISTORY: 1. Status post lumpectomy. 2. Status post Port-A-Cath placement. PAST MEDICAL HISTORY: 1. Diabetes mellitus with prior insulin use. 2. History of breast cancer as noted above. 3. No prior heart problems. 4. No history of allergies. 5. No prior history of cardiac problems. ALLERGIES: THERE ARE NO KNOWN DRUG ALLERGIES. SOCIAL HISTORY: The patient is very concerned about her recent loss of insurance. FAMILY HISTORY: Noncontributory. REVIEW OF SYSTEMS: The patient did have some fevers. She has no headache. She has less cough and less dyspnea. She is not complaining of abdominal pain. There is no nausea or vomiting. She does report some foot pain. PHYSICAL EXAMINATION: VITAL SIGNS: Blood pressure is 125/77, saturation is 100%, and pulse is 92. Respiratory rate is normal. HEENT: Shows no facial swelling or erythema. CARDIAC: Reveals regular rate and rhythm with normal S1 and S2. LUNGS: Auscultation of lungs reveals clear breath sounds bilaterally. ABDOMEN: Soft and nontender. There is no rebound or guarding. EXTREMITIES: Show bandaged left foot. LABORATORY DATA: Blood sugar was 525, and electrolytes are within normal limits. She also has a microcytic anemia. IMPRESSION: 1. Resolving coronavirus disease 2019 and viral pneumonia. 2. Diabetic foot ulcer. 3. Diabetes, out of control. 4. History of breast cancer. PLAN: 1. Continue antibiotics. 2. Podiatry consult. 3. Judicious use of IV fluids. 4. Monitor and control blood sugars. MD JOSE ALFREDO Paulino/BEATRIZ /[id number]
[2020-03-12] MEDS ORDERED: SODIUM CHLORIDE 0.45% 1,000 ML IV ONE (10:00)
--- NOTE | 2020-03-12 10:17 | History and Physical ---
HISTORY OF PRESENT ILLNESS: Ms. Alonso is a 45-year-old female with history of breast cancer, diabetes, mitral valve prolapse, hyperlipidemia, who in February had all the symptoms for COVID and she tested positive. She was given antibiotics and sent home. She came to the emergency room yesterday because apparently after a long walk, she hurt her 5th toe of the left foot, so she decided to come to the emergency room on. SOCIAL HISTORY: She does not the smoke, but she drinks occasionally. ALLERGIES: NO KNOWN DRUG ALLERGIES. PAST SURGICAL HISTORY: She had 3 C-sections and lumpectomy. PAST MEDICAL HISTORY: She has history of breast cancer, diabetes, mitral valve prolapse, hyperlipidemia. PHYSICAL EXAMINATION: VITAL SIGNS: Temperature is 98.3, blood pressure 110/82, pulse is 89, respiratory rate is 18, and O2 saturation is 100%. GENERAL: Right now, the patient is here because of her toe, not because of her COVID. LABORATORY DATA: On the blood work, urine shows 11 to 20 white blood cells. I do not have any blood here. The urine culture is pending. Foot x-ray shows soft tissue injury, no fracture or dislocation to suggest osteomyelitis. ASSESSMENT: 1. Left 5th toe ulcer. 2. Diabetes with foot ulcer. 3. Coronavirus disease 2019 positive. 4. History of mitral valve prolapse. 5. Hyperlipidemia. 6. History of breast cancer, status post lumpectomy. PLAN: At the present time is to start the patient on wound care and IV antibiotics. Podiatry consult with Dr. Kahn, Pulmonary consult with Dr. Lacy, Infectious Disease consult with Dr. Conner. Continue ADA diet and sliding scale with insulin. Continue IV antibiotics. Urine culture today is pending. All this was discussed with the patient over the phone, all questions were answered to satisfaction. MD KELSIE Tejeda/MODL /[id number]
[2020-03-12] MEDS: AZITHROMYCIN 500MG/NS 250 ML 250 ML IV SCH (10:42)
[2020-03-12 10:43] LABS: BASOPHILS % 0.3 % (0.0-1.0); EOSINOPHILS # (AUTO) 0.1 (0.0-0.4); EOSINOPHILS % 1.8 % (0.0-6.0); HEMATOCRIT 31.4 % (34.2-44.1); HEMOGLOBIN 9.5 g/dL (12.0-16.0); LYMPHOCYTES # (AUTO) 1.9 (1.0-3.2); MEAN CORPUSCULAR HEMOGLOBIN 21.8 pg (28-32); MEAN CORPUSCULAR HGB CONC 30.3 g/dL (31-35); MEAN CORPUSCULAR VOLUME 72.2 fL (81-99); MONOCYTES # (AUTO) 0.8 (0.2-0.8); MONOCYTES % 9.6 % (4.4-11.3); NEUTROPHILS % 63.9 % (38.7-80.0); PLATELET COUNT 257 x10e3/uL (140-360); RED BLOOD COUNT 4.35 x10e6/uL (3.6-5.1); RED CELL DISTRIBUTION WIDTH 13.2 % (11.7-14.4)
[2020-03-12 10:59] LABS: ALANINE AMINOTRANSFERASE 9 IU/L (0-55); ALBUMIN 2.9 g/dL (3.5-5.0); ALBUMIN/GLOBULIN RATIO 0.7 (0.8-2.0); ALKALINE PHOSPHATASE 105 IU/L (40-150); BLOOD UREA NITROGEN 12 mg/dL (7-26); BUN/CREATININE RATIO 14 (6-25); CARBON DIOXIDE 25 mmol/L (22-29); CHLORIDE 102 mmol/L (98-107); CREATININE, SERUM 0.85 mg/dL (0.57-1.11); EST GLOMERULAR FILTRATION RATE > 60 ML/MIN (60-); GLUCOSE 194 mg/dL (74-118); SODIUM 135 mmol/L (136-145)
[2020-03-12] MEDS: INSULIN REGULAR, HUMAN 100 UNIT/1 ML 3ML VIAL SQ SCH ×3 (11:30→22:04)
--- NOTE | 2020-03-12 11:41 | NUR ---
MD IN TO SEE PATIENT, NEW ORDERS RECEIVED.
--- NOTE | 2020-03-12 11:42 | Diagnostic Imaging Report ---
EXAMINATION: CHEST SINGLE (PORTABLE) INDICATION: Pneumonia COMPARISON: Chest radiograph 02/25/2020, chest CT 02/25/2020 FINDINGS: LINES/TUBES:Unchanged left chest port. LUNGS:The lungs are well-inflated. Mild left basilar hazy opacity. PLEURA:No pleural effusion or pneumothorax. MEDIASTINUM:The cardiomediastinal silhouette appears normal in size and shape. BONES/SOFT TISSUES:No acute osseous injury. ABDOMEN:No free air under the diaphragm. IMPRESSION: Unchanged mild left basilar hazy opacity could represent pneumonia in the proper clinical setting. Signed by: Jeannie Quiros MD on 03/12/2020 11:39 AM
[2020-03-12] MEDS: PIPER-TAZ 3.375 GM 50 ML IV SCH ×2 (12:37→18:13)
--- NOTE | 2020-03-12 15:27 | NUR ---
PATIENT IN BED RESTING WITH NO DISTRESS. CALL LIGHT AT REACH.
[2020-03-12] MEDS: ENOXAPARIN SOD INJ 40 MG/0.4 ML SYR SC SCH (17:27)
--- NOTE | 2020-03-12 19:20 | NUR ---
BEDSIDE SHIFT REPORT RECEIVED FROM DAY RN. PT IS ALERT AND ORIENTED X3. RESPIRATIONS EVEN AND UNLABORED. PT COUGHING LESS. PT REQUESTING TO KNOW RESULTS OF SECOND COVID TEST. SL IN LEFT AC 22G. SITE HEALTHY. DRESSING TO LEFT FOOT DRY AND INTACT. CALL LIGHT WITHIN REACH. BED LOCKED IN LOW POSITION.
[2020-03-12] MEDS ORDERED: SODIUM CHLORIDE 0.9% 250ML 250 ML ONE (23:56)
[2020-03-13] VITALS (8 sets, daily range): BP systolic 101–140; BP diastolic 61–89
[2020-03-13] MEDS: PIPER-TAZ 3.375 GM 50 ML IV SCH ×4 (00:12→17:10)
--- NOTE | 2020-03-13 00:32 | Consultation ---
DATE OF CONSULTATION: REASON FOR CONSULTATION: 1. COVID-19. 2. Infection in the foot. 3. Urinary tract infection. HISTORY OF PRESENT ILLNESS: This is a 45-year-old female with history of breast cancer in 2017 required lumpectomy, radiation chemotherapy. She has been followed by her oncologist first on admission. The patient comes in with infection of her foot and swelling of her left big toe. The patient also has a history of diabetes mellitus, obesity, status post lumpectomy, status post Port-A-Cath placement. She was also complaining that there was some pus in the urine. The patient is being admitted. It was found she has COVID-19. The patient has no fever, no chills, and no shortness of breath. She tells me she was tested positive for COVID-19 a week or so ago. LABORATORY DATA: Sodium 135, potassium 4.0, creatinine 0.8. Her white count is 7.8 and hemoglobin 9.5. The patient was started on hydrocodone, Zosyn, insulin, and azithromycin. Her chest x-ray showed mild left basilar hazy opacity. Her foot x-ray showed soft tissue swelling, left 5th digit. PHYSICAL EXAMINATION: GENERAL: Currently alert and oriented, does not seem to be in acute distress. VITAL SIGNS: Stable currently, afebrile. HEENT: Not icteric. NECK: Supple. CHEST: Clear. HEART: S1 and S2, no murmur. ABDOMEN: Soft. EXTREMITIES: There is erythema, edema on the foot big toe. IMPRESSION: Infection of the left foot, also she was found to have COVID-19 from possible urinary tract infection. We will put the patient on vancomycin, cefepime, and azithromycin. Podiatry consultation. Continue antibiotic as ordered, await blood cultures and urine cultures. Further recommendations to follow. We will ask the Case Management to assess. She said she does have Medicaid pending. MD NIMESH Castro/MARYL /[id number]
[2020-03-13] MEDS: HYDROCODONE/APAP 10MG-325MG TAB PO PRN ×3 (03:00→20:36)
--- NOTE | 2020-03-13 06:00 | NUR ---
PT REPORT URINATED BLOOD THIS AM. SHE SAID SHE THOUGHT SHE HAD HER PERIOD. PT VOIDED CLOUDY YELLOW URINE AT 0600. LEFT SL REMAINS PATENT. LABS DRAWN ORDERED. Addendum: 03/13/20 at 0755 by KIERRA ASTORGA RN ENDORSED TO DAY RN. FRENCH LECTURER DID NOT SEE URINE BUT INSTRUCTED PT TO CALL STAFF IF HAPPEN AGAIN.
[2020-03-13 06:51] LABS: HEMATOCRIT 29.8 % (34.2-44.1); MEAN CORPUSCULAR HGB CONC 30.2 g/dL (31-35); MEAN CORPUSCULAR VOLUME 72.9 fL (81-99); PLATELET COUNT 244 x10e3/uL (140-360); RED BLOOD COUNT 4.09 x10e6/uL (3.6-5.1); RED CELL DISTRIBUTION WIDTH 13.2 % (11.7-14.4)
[2020-03-13 06:56] LABS: ANION GAP 11.9 mmol/L (8-16); BLOOD UREA NITROGEN 12 mg/dL (7-26); BUN/CREATININE RATIO 15 (6-25); CALCIUM 8.5 mg/dL (8.4-10.2); CARBON DIOXIDE 24 mmol/L (22-29); CHLORIDE 106 mmol/L (98-107); CREATININE, SERUM 0.81 mg/dL (0.57-1.11); EST GLOMERULAR FILTRATION RATE > 60 ML/MIN (60-); GLUCOSE 105 mg/dL (74-118); POTASSIUM 3.9 mmol/L (3.5-5.1); SODIUM 138 mmol/L (136-145)
--- NOTE | 2020-03-13 07:00 | NUR ---
SHIFT REPORT COMPLETED WITH OFF GOING NIGHT NURSE. PATIENT IN STABLE CONDITION, NO S/S OF DISTRESS NOTED. NO PAIN VOICED. WOUND NOTED TO THE LEFT 5TH TOE. IV SITE ASYMPTOMATIC AND PATENT, TRANSPARENT DRESSING C/D/I. BED IN LOWEST POSITION AND LOCKED. CALL LIGHT WITHIN REACH.
[2020-03-13] MEDS: INSULIN REGULAR, HUMAN 100 UNIT/1 ML 3ML VIAL SQ SCH ×4 (07:30→20:33)
--- NOTE | 2020-03-13 08:43 | Progress Note ---
DATE: 03/13/2020 SUBJECTIVE: Ms. Alonso is a 45-year-old female with history of breast cancer, diabetes, mitral valve prolapse, hyperlipidemia diagnosed with COVID on February, it came back negative. The reason she came is because she had a long walk and she developed ulcer on the 5th toe. We are awaiting for a cashier gambling to see her. PHYSICAL EXAMINATION: VITAL SIGNS: Temperature is 98.5, blood pressure 101/61, O2 saturation is 100%, respiratory rate is 20. LABORATORY DATA: White count is 7.17, hemoglobin is 9, hematocrit 29.8, potassium 3.9, creatinine is 0.81. Serology: Coronavirus came back negative. Urine culture showed some staph. ASSESSMENT: 1. Left 5th toe ulcer. 2. Diabetes with ulcer. 3. History of coronavirus. 4. History of mitral valve prolapse. 5. Hyperlipidemia. 6. History of breast cancer status post lumpectomy. PLAN: At the present time is to continue wound care and IV antibiotics. We are awaiting for Dr. Kahn to see the patient. She was already seen by Dr. Conner. She is on vancomycin, cefepime, and azithromycin. Continue to follow up cultures. All this was discussed over the phone with the patient. All questions were answered to satisfaction. MD KELSIE Tejeda/BEATRIZ /[id number]
[2020-03-13] MEDS: AZITHROMYCIN 500MG/NS 250 ML 250 ML IV SCH (09:04)
[2020-03-13 10:07] LABS: LYMPHOCYTES % (MANUAL) 25 % (19-48); MONOCYTES % (MANUAL) 10 % (3.4-9.0); NEUTROPHILS % (MANUAL) 65 % (40-74); PLATELET ESTIMATE ADEQUATE; PLATELET MORPHOLOGY COMMENT NORMAL; RBC MORPHOLOGY COMMENT NORMAL
--- NOTE | 2020-03-13 16:06 | NUR ---
WOUND CARE FOLLOW UP CONSULT FOR 45 YO FEMALE ADMITTED TO [facility] WITH A PRESENT HX OF COVID-19, DIABETIC FOOT ULCER, DM, PYELONEPHRITIS. ANYI 18 ON CONSERVATIVE PUP AND INTERVENTIONS SURFACE: ALTERNATING PRESSURE LABS: WBC- 7.17 HGB- 9.0 ALBUMIN/GLOBIN 2.9 GLUCOSE -105 MICRO: WOUND CULTURE PENDING. URINE CULTURE- STAPHYLOCOCCUS AUREUS. MEDS: AZITHROMYCIN, VANCOMYCIN AND CEFEPIME. SEE EMAR FOR DOSAGE. X-RAY: LEFT FOOT X RAY: IMPRESSION SOFT TISSUE INJURYOF THE LEFT FIFTH DIGIT; NO FRACTURE OR OSSEOUS EROSION TO SUGGEST OSTEOMYELITIS. SKIN ASSESSMENT COMPLETE PATIENT PRESENTS WITH 1) DIABETIC FOOT ULCER PEREZ II TO LEFT 5TH MET HEAD MEASURING 1.8 XM 1.9 CM X 1 CM. MODERATE SEROSANGUINEOUS FLUID, 90% GRANULATION TISSUE, 10% YELLOW SLOUGH. 2) UNSTAGEABLE DIABETIC FOOT ULCER LEFT DISTAL TIP 5TH TOE; MEASURING 1CM X 1 CM, 100% ESCHAR AND DRY. NOTIFIED DR. DOOLEY OF CONSULT; RECEIVED ORDER TO CONSULT DR. GONZALES LOADER HELPER. CONSULT PLACED. NOTIFIED FLOOR NURSE OF RECOMMENDED TREATMENT AND TO FOLLOW UP WITH KILN MECHANIC IF ANY WOUND CARE CHANGES ARE NEEDED. X2 CONTACTED LOADER HELPER ANSWERING SYSTEM FOR DR. GONZALES AND REQUESTED A PHONE CALL BACK TO WRITE WOUND CARE ORDERS REGARDING LEFT FIFTH TOE. AWAITING LOADER HELPER BACK. CONTACTED LOADER HELPER ANSWERING SYSTEM FOR DR. ELLER FOR WOUND CARE NURSE RECOMMENDATIONS; AWAITING ON A CALL BACK. WOUND CARE TO FOLLOW UP MONDAY. RECOMMENDATIONS NURSING TO PAINT LEFT DISTAL TIP 5TH TOE ITH BETADINE AND LET IT AIR DRY, COVER WITH 4X4 GAUZE, AND LIGHT WRAP WITH KERLIX DAILY NURSING TO CLEAN LEFT 5TH MET HEAD WITH NS, PAT DRY WITH 4X4 GAUZE, PACK WITH PURACOL AND APPLY MAXORB AG, COVER WITH 4X4 GAUZE AND LIGHTLY SECURE WRAP WITH KERLIX DIALY NURSING TO REPORT WOUND CULTURE RESULTS TO MD. NURSING TO CONTINUE TO MONITOR PATIENT AND KEEP SKIN CLEAN AND FREE FROM STOOL OR IRRITATING MOISTURE AND CONTINUE TO FOLLOW STRICT PUP INTERVENTIONS DAILY. NURSING TO ENCOURAGE PT TO SELF REPOSITION IN BED NEEDED. NURSING TO CONTINUE TO OFFLOAD FEET AND HEELS AT ALL TIMES WITH PILLOW SUSPENSION WHEN IN BED. NURSING TO ASSIST PT OUT OF BED FOR MEALS AND NEEDED. NURSING TO CONTINUE TO ASSIST WITH PT NUTRITIONAL SUPPLEMENTS TO ENSURE PROPER REQUIREMENTS FOR HEALING. NURSING TO RE- CONSULT WOUND CARE NEEDED. Addendum: 03/13/20 at 1610 by Sheryl Mai RN Amended: Links added.
--- NOTE | 2020-03-13 16:51 | NUR ---
Nutrition Screen Note RD Recommendation for Physician: -Continue current diet as ordered -If PO intake is <50% of meals, offer Glucerna nutrition supplement Plan of Care: RD following, monitoring for tolerance and adequacy Nutrition reason for involvement: Nutrition Risk Trigger (MST 2) Primary Diagnose(s): diabetic foot ulcer, pyelonephritis PMH: breast cancer, diabetes, mitral valve prolapse, hyperlipidemia, coronavirus (February 2020) Ht: 64 in Wt:204 lb BMI: 35.0 kg/m2 IBW:[address] Assessment: (03/13/20) Chart reviewed. Labs and meds reviewed. Pt is a 45 year old female admitted with diabetic foot ulcer and pyelonephritis. Pt also was diagnosed with COVID in February. Attempted to call pt over the phone, but she did not answer. It is recorded that pt consumed 75% of her breakfast this morning. Unable to obtain weight history from pt at this time. Will continue to monitor. Current Diet: 1800 ADA Malnutrition Evaluation (03/13/20) Unable to fully assess. Will re-evaluate at follow-up as appropriate. Diet Education Needs Assessment: RD is available for diet education as needed Nutrition Care Level: low Signed: Vangie Smallwood, RD, LD
[2020-03-13] MEDS: ENOXAPARIN SOD INJ 40 MG/0.4 ML SYR SC SCH (17:10)
--- NOTE | 2020-03-13 19:32 | NUR ---
Report given to Azeb VILLALTA PATIENT TRANSFERRING TO ROOM 115. SHIFT REPORT COMPLETED WITH ON COMING NIGHT NURSE. PATIENT IN STABLE CONDITION, NO S/S OF DISTRESS NOTED. NO PAIN VOICED. IV SITE ASYMPTOMATIC AND PATENT, TRANSPARENT DRESSING C/D/I. BED IN LOWEST POSITION AND LOCKED. CALL LIGHT WITHIN REACH.
--- NOTE | 2020-03-13 20:56 | Consultation ---
DATE OF CONSULTATION: 03/13/2020 REASON FOR CONSULTATION: Ulceration in left 5th digit. CHIEF COMPLAINT/HISTORY OF PRESENT ILLNESS: This is a pleasant female, who was admitted in regard to COVID-19. This patient did go to the [facility] here in [place], which was approximately 2 weeks before she tested positive. At this point of time she state she does not have any coughing, any nausea, vomiting, fever, chills, thigh pain, chest pain, calf pain, or shortness of breath. She complained of ulceration to the left 5th digit, said her foot got red, hot and swollen, because she was doing quite a bit of walking at the [facility]. PAST MEDICAL HISTORY: 1. Diabetes mellitus, uncontrolled. 2. Mitral valve prolapse. 3. Hyperlipidemia. 4. History of breast cancer. SOCIAL HISTORY: The patient denies smoking; however, does drink alcohol occasionally. ALLERGIES: THE PATIENT HAS NO KNOWN ALLERGIES. PREVIOUS SURGICAL HISTORY: section, lobectomy. REVIEW OF SYSTEMS: See admission history and physical. PHYSICAL EXAMINATION: GENERAL: The patient is alert, awake, and oriented x3, currently in no acute distress. VITAL SIGNS: Temperature is 98.3, blood pressure is 110/82, pulse of 89, respiratory rate is 18, oxygen saturation 100%. EXTREMITIES: Lower extremity physical examination; the patient on the left lower extremity has +2/4 DP and PT pulse bilaterally. DERMATOLOGIC: Reveals an ulceration along the dorsal aspect of left 5th digit. Mild edema as well as no purulence is noted. Radiographic examination was performed on 03/11/2020, reveals no acute fracture. No discrete osseous erosion or alignment issues to the left 5th digit. Negative for osteomyelitis at this point. Orthopedic examination of manual muscle testing, dorsal flexion, plantar flexion, inversion and eversion of ASSESSMENT: 1. Diabetes mellitus with peripheral neuropathy. 2. Grade 3 ulceration, left 5th digit. 3. Coronavirus disease positive. 4. Mitral valve prolapse. 5. Hyperlipidemia. 6. History of breast cancer. RECOMMENDATIONS: 1. At this point in time do agree with continued IV antibiotics per Infectious Disease, I did briefly speak with Dr. Conner. 2. Local wound care consisting of Santyl will be recommended on a twice daily basis with wet-to-dry. 3. Postsurgical shoes arranged. 4. Further recommendations will be pending patient's clinical progression. Dr. Mata, . We will be happy to follow this patient with you. Juan Ramon Leon DPM MM/BEATRIZ /[id number]
[2020-03-14] VITALS (8 sets, daily range): BP systolic 116–131; BP diastolic 76–85
[2020-03-14] MEDS: HYDROCODONE/APAP 10MG-325MG TAB PO PRN ×4 (00:43→23:16)
[2020-03-14] MEDS: PIPER-TAZ 3.375 GM 50 ML IV SCH ×4 (06:00→21:46)
[2020-03-14] MEDS: INSULIN REGULAR, HUMAN 100 UNIT/1 ML 3ML VIAL SQ SCH ×4 (07:30→21:45)
[2020-03-14] MEDS: COLLAGENASE 5 GM TUBE TOP SCH (12:07)
[2020-03-14] MEDS: VANCOMYCIN 1GM/NS 250 ML 250 ML IV SCH ×2 (12:15→23:19)
[2020-03-14] MEDS: ENOXAPARIN SOD INJ 40 MG/0.4 ML SYR SC SCH (16:31)
--- NOTE | 2020-03-14 19:54 | NUR ---
Received change of shift report from AM nurse. Walking rounds completed.
--- NOTE | 2020-03-14 21:29 | NUR ---
Report taken from Percy Reyes .
--- NOTE | 2020-03-14 23:00 | NUR ---
AMBAR HELLER STARTED NEW IV TO LEFT FOR ARM 22 G.PATENT.PATIENT TOLERATED WELL.
[2020-03-15] VITALS (8 sets, daily range): BP systolic 113–150; BP diastolic 73–97
[2020-03-15] MEDS: PIPER-TAZ 3.375 GM 50 ML IV SCH ×4 (03:40→20:17)
--- NOTE | 2020-03-15 07:10 | NUR ---
Bed side shift report given to oncoming Rn.stable condition.
--- NOTE | 2020-03-15 07:10 | NUR ---
CHANGE OF SHIFT REPORT RECEIVED FROM PM NURSE. PT AWAKE, ALERT, ORIENTED X3, NO SIGNS OF DISTRESS, NO COMPLAINTS AT THIS TIME.
[2020-03-15] MEDS: INSULIN REGULAR, HUMAN 100 UNIT/1 ML 3ML VIAL SQ SCH ×4 (08:18→20:51)
[2020-03-15] MEDS: HYDROCODONE/APAP 10MG-325MG TAB PO PRN ×2 (08:58→22:57)
[2020-03-15] MEDS: COLLAGENASE 5 GM TUBE TOP SCH (08:59)
[2020-03-15] MEDS: VANCOMYCIN 1GM/NS 250 ML 250 ML IV SCH ×2 (12:16→22:53)
[2020-03-15] MEDS: ENOXAPARIN SOD INJ 40 MG/0.4 ML SYR SC SCH (16:11)
--- NOTE | 2020-03-15 19:13 | NUR ---
Received the patient in report.sitting in the recyliner.stable condition.no pain voiced.
--- NOTE | 2020-03-15 22:04 | NUR ---
patient is resting.call light within reach.stable condition.
[2020-03-16] VITALS: BP 137/91
[2020-03-16] MEDS: PIPER-TAZ 3.375 GM 50 ML IV SCH ×2 (02:49→08:32)
[2020-03-16 04:00] VITALS: BP 116/69
--- NOTE | 2020-03-16 06:56 | NUR ---
BED SIDE SHIFT REPORT GIVEN TO ONCOMING RN.STABLE CONDITION.
--- NOTE | 2020-03-16 07:00 | NUR ---
RECEIVED PATIENT RESTING IN BED NO S/S OF DISTRESS. BED LOW, WHEELS LOCKED, SIDE RAILS X2. CALL LIGHT IN REACH WILL CONTINUE TO MONITOR PATIENT.
[2020-03-16] MEDS: INSULIN REGULAR, HUMAN 100 UNIT/1 ML 3ML VIAL SQ SCH ×2 (07:30→11:30)
[2020-03-16] MEDS: COLLAGENASE 5 GM TUBE TOP SCH (08:14)
--- NOTE | 2020-03-16 08:19 | NUR ---
GAVE PACKET OF INFORMATION WITH COMMUNITY [employer]OURCES FOR ASSISTANCE WITH LOW TO NO INCOME TO PATIENT. RESOURCES THAT PATIENT MAY BE ABLE TO FOLLOW UP UPON DISCHARGE. PT EDUCATED ON EACH RESOURCE AND UNDERSTANDING HOW TO FOLLOW UP TO SEE IF QUALIFIED FOR EACH RESOURCE.
[2020-03-16 08:31] VITALS: BP 127/87
[2020-03-16 08:36] VITALS: BP 127/87
--- NOTE | 2020-03-16 10:01 | Progress Note ---
DATE: 03/16/2020 SUBJECTIVE: Ms. Alonso is a 45-year-old female with history of breast cancer, diabetes, mitral valve prolapse, and hyperlipidemia, diagnosed with COVID in February, came to the emergency room because after a long walk she developed an ulcer in the left 5th toe. She was seen by authors motivational. She is on wound care and IV antibiotics. PHYSICAL EXAMINATION: GENERAL: She is awake and alert. She is feeling better. VITAL SIGNS: Temperature is 98.8, blood pressure is 127/87. HEART: Regular rate. LUNGS: Poor inspiratory effort. ABDOMEN: Soft. LABORATORY DATA: On the blood work, white count 7.17, hemoglobin is 9, and hematocrit 29.8. Glucose 207. COVID test here came back negative. Wound culture showing Staph aureus MRSA. ASSESSMENT AND PLAN: 1. Grade 3 ulceration of the left 5th toe. 2. Diabetes with foot ulcer. 3. History of coronavirus disease. 4. History of mitral valve prolapse. 5. Hyperlipidemia. 6. History of breast cancer. PLAN: At present time is to continue IV antibiotics and wound care. We are going to wait for a authors motivational to decide if patient needs any farther intervention regarding her 5th toe ulcer. We are awaiting for Medicaid, to try to get the patient on Medicaid. All this was discussed with the patient. All questions were answered to satisfaction. MD KELSIE Tejeda/BEATRIZ /[id number]
[2020-03-16] MEDS: VANCOMYCIN 1GM/NS 250 ML 250 ML IV SCH (12:02)
[2020-03-16] MEDS: HYDROCODONE/APAP 10MG-325MG TAB PO PRN (12:02)
[2020-03-16 12:04] VITALS: BP 135/82
[2020-03-16] MEDS ORDERED: DOXYCYCLINE HY100 MG PO (12:24)
--- NOTE | 2020-03-16 13:11 | Progress Note ---
DATE: SUBJECTIVE: The patient was seen at bedside today, in no acute distress. She denies any overnight constitutional symptoms. The left foot was evaluated. At this time, it was noted that the wound is mostly granular, there is pain on palpation and moderate swelling, however, the acute infection has significantly subsided. ASSESSMENT: 1. Grade 3 ulceration diabetic foot, left foot. 2. Diabetes with peripheral neuropathy. 3. Negative for coronavirus testing. PLAN: From Podiatry standpoint, continue with Santyl wet to dry dressing daily per nursing. She is okay to be discharged if okay with Medicine and Infectious Disease. She is to follow up with me in clinic within 1 week of discharge. At this point, Podiatry will sign off. Please reconsult if services are required. Thank you again for including me in the care of this patient. JAKE Lazaro/BEATRIZ /[id number]
--- NOTE | 2020-03-16 13:20 | NUR ---
RECEIVED DISCHARGE ORDER FROM DR. ELLER. NEW ORDERS IMPLEMENTED.
[2020-03-16] MEDS ORDERED: ONDANSETRON HCL 4 MG ORAL DISINTEGRATING TAB PO PRN (13:45)
--- NOTE | 2020-03-16 14:40 | NUR ---
REMOVED PATIENTS IV. CATHETER TIP INTACT AND PRESSURE DRESSING APPLIED.
--- NOTE | 2020-03-16 16:15 | NUR ---
PATIENT DISCHARGED FROM FACILITY. PATIENT GATHERED ALL PERSONAL BELONGINGS, DISCHARGE INSTRUCTIONS, AND FOLLOW UP INFORMATION. PATIENT LEFT UNIT IN WHEELCHAIR AND WENT HOME VIA PRIVATE AUTO. NO S/S OF DISTRESS LEAVING FACILITY.
[2020-03-16 16:18] VITALS: BP 134/87
[2020-03-16] MEDS ORDERED: VANCOMYCIN 1GM/NS 250 ML 250 ML IV SCH (23:00)
[2020-03-17] MEDS ORDERED: COLLAGENASE OINTMENT 30 GM TUBE TOP SCH (09:00)
== END 2020-03-16 16:15 | disposition home or self-care (01) | DRG 638 ==
LOC: FSED 20:00 → ERHOLD 23:51 → IMCU 03-12 03:13 → MED/SURG 03-13 19:58
PROVIDERS: ADMIT Internal Medicine; ATTEND Internal Medicine
PROC: 8E0ZXY6 Isolation (ICD-10-PCS; principal; 2020-03-11)
DX: E11.621 Type 2 diabetes mellitus with foot ulcer (principal); N39.0 Urinary tract infection, site not specified; L97.521 Non-pressure chronic ulcer of other part of left foot limited to breakdown of skin; E11.65 Type 2 diabetes mellitus with hyperglycemia; E11.42 Type 2 diabetes mellitus with diabetic polyneuropathy; E78.5 Hyperlipidemia, unspecified; Z85.3 Personal history of malignant neoplasm of breast; Z86.718 Personal history of other venous thrombosis and embolism; Z03.818 Encounter for observation for suspected exposure to other biological agents ruled out; I34.1 Nonrheumatic mitral (valve) prolapse; B95.62 Methicillin resistant Staphylococcus aureus infection as the cause of diseases classified elsewhere; E66.9 Obesity, unspecified; Z68.35 Body mass index [BMI] 35.0-35.9, adult; R53.81 Other malaise; D63.8 Anemia in other chronic diseases classified elsewhere
CPT/HCPCS: 36415; 71045; 80048; 80053; 80202; 81001; 82948; 83036; 85007; 85025; 85027; 87071; 87086; 87186; 87205; 87635; 99251; 99284; J0456; J0696; J1650; J1817; J2543; J3370; J7030; J7050

== ENCOUNTER 2020-09-08 16:04 | Emergency (ER) | payer SELFPAY ==
[~2020-09-08] VITALS: Ht 162.6 cm; Wt 94.3 kg
[~2020-09-08 16:04] MED LIST: DOXYCYCLINE HY100 MG PO
[2020-09-08] MEDS ORDERED: POTASSIUM CHLORIDE 20 MEQ TAB CR PO STA (17:32)
[2020-09-08] MEDS ORDERED: INSULIN REGULAR, HUMAN 100 UNIT/1 ML 3ML VIAL SQ STA (17:32)
[2020-09-08] MEDS ORDERED: LANTUS 3ML100 UNITS/ SQ (17:41)
[2020-09-08] MEDS ORDERED: GLIPIZIDE10 MG PO (17:41)
[2020-09-08] MEDS ORDERED: POTASSIUM CHLORIDE 20 MEQ TAB CR PO ONE (17:44)
[2020-09-08] MEDS ORDERED: INSULIN REGULAR, HUMAN 100 UNIT/1 ML 3ML VIAL ONE (17:44)
[2020-09-08] MEDS ORDERED: AUGMENTIN 875-1 EACH PO (17:54)
[2020-09-08] MEDS ORDERED: BACTRIM DS TAB1 EACH PO (17:54)
[2020-09-08 18:02] VITALS: BP 115/73
== END 2020-09-08 18:13 | disposition home or self-care (01) ==
LOC: FSED 16:15
DX: N39.0 Urinary tract infection, site not specified (principal); E11.65 Type 2 diabetes mellitus with hyperglycemia; I25.10 Atherosclerotic heart disease of native coronary artery without angina pectoris
CPT/HCPCS: 74176; 80048; 80076; 81003; 81025; 85025; 87040; 87086; 87186; 96372; 99284; J1817

== ENCOUNTER 2021-01-03 13:40 | Emergency (ER) | payer SELFPAY ==
[~2021-01-03] VITALS: Ht 162.6 cm; Wt 94.3 kg
[~2021-01-03 13:40] MED LIST changes: +AUGMENTIN 875-1 EACH PO; +BACTRIM DS TAB1 EACH PO; +GLIPIZIDE10 MG PO; +LANTUS 3ML100 UNITS/ SQ
[2021-01-03] MEDS ORDERED: PANTOPRAZOLE 40 MG 10ML VIAL IV STA (13:59)
[2021-01-03] MEDS ORDERED: SODIUM CHLORIDE 0.9% 1000ML 1,000 ML IV STA ×2 (13:59→15:27)
[2021-01-03] MEDS ORDERED: KETOROLAC TROMETHAMINE 30 MG/ML VIAL IV STA (13:59)
[2021-01-03] MEDS ORDERED: ONDANSETRON HCL INJ 2MG/ML 2ML 2 MG/ML VIAL IV STA (13:59)
[2021-01-03 14:36] LABS: AMPHETAMINES SCREEN,URINE NEGATIVE (NEGATIVE); BENZODIAZEPINES SCREEN,URINE NEGATIVE (NEGATIVE); PHENCYCLIDINE SCREEN,URINE NEGATIVE (NEGATIVE)
[2021-01-03 14:37] LABS: CLARITY,URINE CLEAR (CLEAR); COLOR,URINE YELLOW (YELLOW); KETONES,URINE NEGATIVE (NEGATIVE); LEUKOCYTE ESTERASE ,URINE NEGATIVE (NEGATIVE); NITRITE,URINE NEGATIVE (NEGATIVE); PROTEIN,URINE DIPSTICK TRACE (NEGATIVE); URINE UROBILINOGEN 0.2 mg/dL (0.2 - 1)
[2021-01-03 14:47] LABS: BASOPHILS % 0.3 % (0.0-1.0); EOSINOPHILS # (AUTO) 0.1 (0.0-0.4); HEMATOCRIT 33.2 % (34.2-44.1); HEMOGLOBIN 10.5 g/dL (12.0-16.0); LYMPHOCYTES # (AUTO) 1.9 (1.0-3.2); LYMPHOCYTES % 21.7 % (18.0-39.1); MEAN CORPUSCULAR HEMOGLOBIN 22.5 pg (28-32); MEAN CORPUSCULAR HGB CONC 31.6 g/dL (31-35); MEAN CORPUSCULAR VOLUME 71.1 fL (81-99); MONOCYTES # (AUTO) 0.7 (0.2-0.8); MONOCYTES % 8.1 % (4.4-11.3); NEUTROPHILS # (AUTO) 5.8 (2.1-6.9); PLATELET COUNT 193 x10e3/uL (140-360); RED BLOOD COUNT 4.67 x10e6/uL (3.6-5.1); RED CELL DISTRIBUTION WIDTH 13.4 % (11.7-14.4)
[2021-01-03 14:53] LABS: BACTERIA,URINE MANY /HPF; EPITHELIAL CELLS,URINE FEW /LPF; RBC,URINE 0-5 /HPF (0-5)
[2021-01-03 15:08] LABS: PARTIAL THROMBOPLASTIN TIME 25.4 seconds (23.8-35.5); PROTHROMBIN TIME 13.8 seconds (11.9-14.5)
[2021-01-03 15:20] LABS: ALBUMIN 3.3 g/dL (3.5-5.0); ALBUMIN/GLOBULIN RATIO 0.9 (0.8-2.0); CALCIUM 8.6 mg/dL (8.4-10.2); CREATININE, SERUM 1.22 mg/dL (0.57-1.11)
[2021-01-03 15:26] LABS: CREATINE KINASE MB 0.5 ng/mL (0-5.0)
[2021-01-03] MEDS ORDERED: CEFTRIAXONE SOD 1 GM/50 ML BAG IV ONE (15:30)
[2021-01-03] MEDS ORDERED: INSULIN REGULAR, HUMAN 100 UNIT/1 ML 3ML VIAL IV ONE (15:30)
[2021-01-03] MEDS ORDERED: MORPHINE SULFATE INJ 4 MG/ML INJ 1ML IV STA (15:31)
[2021-01-03] MEDS ORDERED: CEFTRIAXONE SOD 1 GM in SODIUM CHLORIDE 0.9% 50ML 50 ML IV ONE (15:45)
== END 2021-01-03 17:30 | disposition home or self-care (01) ==
LOC: ER 13:56
DX: R10.9 Unspecified abdominal pain (principal); R11.0 Nausea; N39.0 Urinary tract infection, site not specified; E11.65 Type 2 diabetes mellitus with hyperglycemia; I25.10 Atherosclerotic heart disease of native coronary artery without angina pectoris; I34.1 Nonrheumatic mitral (valve) prolapse
CPT/HCPCS: 36415; 71045; 74176; 80053; 80307; 81001; 81025; 82550; 82553; 82948; 83690; 84484; 85025; 85610; 85730; 87086; 99284; C9113; J0696; J1817; J1885; J2270; J2405; J7030

== ENCOUNTER 2021-01-23 17:28 | Emergency (ER) | payer MEDICARE, SELFPAY ==
[~2021-01-23] VITALS: Ht 162.6 cm; Wt 95.3 kg
[2021-01-23] MEDS ORDERED: IBUPROFEN 400 MG TAB PO STA (17:41)
[2021-01-23] MEDS ORDERED: SODIUM CHLORIDE 0.9% 1000ML 1,000 ML IV STA (17:58)
[2021-01-23] MEDS ORDERED: SODIUM CHLORIDE 0.9% 1000ML 1,000 ML IV SCH (18:00)
[2021-01-23] MEDS ORDERED: CEFEPIME HCL 1GM 1 GM in SODIUM CHLORIDE 0.9% 50ML 50 ML IV SCH (18:05)
[2021-01-23 18:46] LABS: BASOPHILS % 0.2 % (0.0-1.0); EOSINOPHILS % 0.1 % (0.0-6.0); LYMPHOCYTES % 6.3 % (18.0-39.1); MEAN CORPUSCULAR HEMOGLOBIN 22.8 pg (28-32); MEAN CORPUSCULAR HGB CONC 32.1 g/dL (31-35); MEAN CORPUSCULAR VOLUME 70.9 fL (81-99); MONOCYTES # (AUTO) 1.3 (0.2-0.8); MONOCYTES % 8.6 % (4.4-11.3); NEUTROPHILS # (AUTO) 12.5 (2.1-6.9); NEUTROPHILS % 83.5 % (38.7-80.0); PLATELET COUNT 112 x10e3/uL (140-360); RED BLOOD COUNT 3.95 x10e6/uL (3.6-5.1); RED CELL DISTRIBUTION WIDTH 13.5 % (11.7-14.4)
[2021-01-23 19:00] LABS: CLARITY,URINE CLOUDY (CLEAR); COLOR,URINE YELLOW (YELLOW); KETONES,URINE NEGATIVE (NEGATIVE); LEUKOCYTE ESTERASE ,URINE TRACE (NEGATIVE); NITRITE,URINE NEGATIVE (NEGATIVE); PROTEIN,URINE DIPSTICK 2+ (NEGATIVE); URINE UROBILINOGEN 0.2 mg/dL (0.2 - 1)
[2021-01-23 19:06] LABS: ALBUMIN 2.9 g/dL (3.5-5.0); ALBUMIN/GLOBULIN RATIO 0.6 (0.8-2.0); ANION GAP 20.9 mmol/L (8-16); CALCIUM 9.2 mg/dL (8.4-10.2); CREATININE, SERUM 1.37 mg/dL (0.57-1.11); POTASSIUM 4.9 mmol/L (3.5-5.1)
[2021-01-23 19:22] LABS: BACTERIA,URINE MANY /HPF; WBC,URINE (MAN) 21-50 /HPF (0-5)
[2021-01-23 19:23] LABS: EPITHELIAL CELLS,URINE FEW /LPF
[2021-01-23] MEDS ORDERED: MEROPENEM 1GRAM 1 GM in SODIUM CHLORIDE 0.9% 100 ML 100 ML IV STA (19:54)
[2021-01-23] MEDS ORDERED: INSULIN REGULAR, HUMAN 100 UNIT/1 ML 3ML VIAL SQ ONE (20:00)
[2021-01-23] MEDS ORDERED: SODIUM CHLORIDE 0.9% 50ML 50 ML ONE (20:09)
[2021-01-23] MEDS ORDERED: IOPAMIDOL 370 MG/ML 200 ML INFUS..BTL INJ ONE (20:09)
[2021-01-23] MEDS ORDERED: INSULIN REGULAR, HUMAN 100 UNIT/1 ML 3ML VIAL IV ONE ×2 (20:30→20:45)
[2021-01-23] MEDS ORDERED: MEROPENEM 1GM 100 ML IV ONE (21:24)
[2021-01-23] MEDS ORDERED: FENTANYL CITRATE/PF 100MCG/2 ML INJ IV ONE (22:15)
[2021-01-23 22:58] LABS: ANION GAP 12.7 mmol/L (8-16); CALCIUM 8.2 mg/dL (8.4-10.2); CREATININE, SERUM 1.28 mg/dL (0.57-1.11); POTASSIUM 3.7 mmol/L (3.5-5.1)
[2021-01-24] MEDS ORDERED: ACETAMINOPHEN 325 MG TAB PO ONE (01:45)
[2021-01-24] MEDS ORDERED: ACETAMINOPHEN 325 MG TAB ONE (01:47)
[2021-01-24 02:11] VITALS: BP 126/75
[2021-01-24] MEDS ORDERED: CEFEPIME HCL 1 GM VIAL IV SCH (09:00)
== END 2021-01-24 02:25 | disposition other institution (70) ==
LOC: ER 17:53
DX: R50.9 Fever, unspecified (principal); R65.20 Severe sepsis without septic shock; R11.2 Nausea with vomiting, unspecified; N12 Tubulo-interstitial nephritis, not specified as acute or chronic; N39.0 Urinary tract infection, site not specified; E11.65 Type 2 diabetes mellitus with hyperglycemia; Z20.822 Contact with and (suspected) exposure to COVID-19; Z85.3 Personal history of malignant neoplasm of breast
CPT/HCPCS: 36415; 71046; 74177; 80048; 80053; 81001; 82948; 83605; 85025; 87040; 87071; 87086; 87186; 87205; 99284; J0692; J1817; J2185; J3010; J7030; Q9967; U0002

== ENCOUNTER 2021-03-21 07:29 | Emergency (ER) | payer SELFPAY, OTHER ==
[~2021-03-21] VITALS: Ht 162.6 cm; Wt 95.9 kg
[2021-03-21] MEDS ORDERED: LANTUS 3ML100 UNITS/ SQ ×2 (07:52→08:51)
[2021-03-21] MEDS ORDERED: BENZONATATE200 MG PO (07:52)
[2021-03-21] MEDS ORDERED: NEURONTIN300 MG PO (07:52)
[2021-03-21] MEDS ORDERED: FLOMAX0.4 MG PO (07:52)
[2021-03-21] MEDS ORDERED: HYDROCHLOROTH12.5 MG (07:52)
[2021-03-21] MEDS ORDERED: CLINDAMYCIN 600MG / 50ML 50 ML IV ONE ×2 (08:00→08:11)
[2021-03-21] MEDS ORDERED: Vancomycin IV 1.5 GM in SODIUM CHLORIDE 0.9% 500ML 500 ML IV ONE (08:00)
[2021-03-21] MEDS ORDERED: DOXYCYCLINE HY100 MG PO (08:01)
[2021-03-21] MEDS ORDERED: CLEOCIN HCL300 MG PO (08:01)
[2021-03-21] MEDS ORDERED: PROBIOTIC & AC1 EACH PO (08:01)
[2021-03-21] MEDS ORDERED: Vancomycin IV 1 GM VIAL ONE ×2 (08:11→08:33)
[2021-03-21] MEDS ORDERED: SODIUM CHLORIDE 0.9% 250ML 250 ML ONE (08:11)
[2021-03-21] MEDS ORDERED: SODIUM CHLORIDE 0.9% 1000ML 1,000 ML ONE (08:45)
[2021-03-21] MEDS ORDERED: INSULIN REGULAR, HUMAN 100 UNIT/1 ML IV ONE (08:45)
[2021-03-21] MEDS ORDERED: SODIUM CHLORIDE 0.9% 1000ML 1,000 ML IV ONE (08:45)
[2021-03-21] MEDS ORDERED: INSULIN REGULAR, HUMAN 100 UNIT/1 ML ONE (08:46)
[2021-03-21 08:49] VITALS: BP 160/94
[2021-03-21] MEDS ORDERED: PIPERACILLIN/TAZOBACTAM 2.25 GM in SODIUM CHLORIDE 0.9% 50ML 50 ML IV ONE (11:15)
[2021-03-21] MEDS ORDERED: KETOROLAC TROMETHAMINE 30 MG/ML VIAL IV ONE (11:15)
== END 2021-03-21 11:00 | disposition home or self-care (01) ==
LOC: FSED 07:50
DX: E11.621 Type 2 diabetes mellitus with foot ulcer (principal); E11.65 Type 2 diabetes mellitus with hyperglycemia; L97.519 Non-pressure chronic ulcer of other part of right foot with unspecified severity; Z85.3 Personal history of malignant neoplasm of breast
CPT/HCPCS: 80053; 85025; 96374; 99284; J1817; J3370; J7030; J7050

== ENCOUNTER 2021-05-11 13:05 | Emergency (ER) | payer OTHER, SELFPAY ==
[~2021-05-11] VITALS: Ht 162.6 cm; Wt 92.1 kg
[~2021-05-11 13:05] MED LIST changes: +BENZONATATE200 MG PO; +CLEOCIN HCL300 MG PO; +FLOMAX0.4 MG PO; +HYDROCHLOROTH12.5 MG; +NEURONTIN300 MG PO; +PROBIOTIC & AC1 EACH PO
[2021-05-11] MEDS ORDERED: KETOROLAC TROMETHAMINE 30 MG/ML VIAL IV STA (13:37)
[2021-05-11] MEDS ORDERED: ONDANSETRON HCL INJ 2MG/ML 2ML 2 MG/ML VIAL IV NR (13:45)
[2021-05-11] MEDS ORDERED: ONDANSETRON HCL INJ 2MG/ML 2ML 2 MG/ML VIAL ONE (13:54)
[2021-05-11] MEDS ORDERED: KETOROLAC TROMETHAMINE 30 MG/ML VIAL ONE (13:54)
[2021-05-11] MEDS ORDERED: CEFTRIAXONE 1 GM in SODIUM CHLORIDE 0.9% 50ML 50 ML IV ONE (14:45)
[2021-05-11] MEDS ORDERED: CEFDINIR300 MG PO (15:01)
[2021-05-11] MEDS ORDERED: CEFTRIAXONE 1 GM VIAL ONE (15:06)
[2021-05-11] MEDS ORDERED: SODIUM CHLORIDE 0.9% 50ML 50 ML ONE (15:06)
[2021-05-11 15:25] VITALS: BP 123/68
== END 2021-05-11 15:33 | disposition home or self-care (01) ==
LOC: FSED 13:08
DX: M54.5 Low back pain (principal); R10.9 Unspecified abdominal pain; N10 Acute pyelonephritis; E11.621 Type 2 diabetes mellitus with foot ulcer; L97.509 Non-pressure chronic ulcer of other part of unspecified foot with unspecified severity; I10 Essential (primary) hypertension; Z85.3 Personal history of malignant neoplasm of breast
CPT/HCPCS: 74176; 80048; 80076; 81003; 81025; 85025; 99284; J0696; J1885; J2405

== ENCOUNTER 2021-08-11 16:56 | Emergency (ER) | payer OTHER ==
[~2021-08-11] VITALS: Ht 162.6 cm; Wt 95.3 kg
[~2021-08-11 16:56] MED LIST changes: +CEFDINIR300 MG PO
[2021-08-11] MEDS ORDERED: KETOROLAC TROMETHAMINE 60 MG/2 ML VIAL IM ONE (17:30)
[2021-08-11] MEDS ORDERED: KETOROLAC TROMETHAMINE 60 MG/2 ML VIAL ONE (17:50)
[2021-08-11] MEDS ORDERED: CYCLOBENZAPRINE10 MG PO (18:11)
== END 2021-08-11 18:50 | disposition home or self-care (01) ==
LOC: FSED 17:20
DX: S16.1XXA Strain of muscle, fascia and tendon at neck level, initial encounter (principal); S39.012A Strain of muscle, fascia and tendon of lower back, initial encounter; V54.5XXA Driver of pick-up truck or van injured in collision with heavy transport vehicle or bus in traffic accident, initial encounter; Y92.488 Other paved roadways as the place of occurrence of the external cause; E04.2 Nontoxic multinodular goiter; Z85.3 Personal history of malignant neoplasm of breast; F17.210 Nicotine dependence, cigarettes, uncomplicated
CPT/HCPCS: 72125; 72128; 72131; 99283; J1885

== ENCOUNTER 2021-09-24 19:12 | Emergency (ER) | payer OTHER ==
[~2021-09-24] VITALS: Ht 162.6 cm; Wt 94.3 kg
[~2021-09-24 19:12] MED LIST changes: +CYCLOBENZAPRINE10 MG PO
[2021-09-24 21:08] VITALS: BP 115/78
== END 2021-09-24 21:08 | disposition home or self-care (01) ==
LOC: FSED 19:30
DX: R07.89 Other chest pain (principal); M54.2 Cervicalgia; E11.40 Type 2 diabetes mellitus with diabetic neuropathy, unspecified; I10 Essential (primary) hypertension; Z85.3 Personal history of malignant neoplasm of breast
CPT/HCPCS: 99282

== ENCOUNTER 2021-12-08 13:06 | Emergency (ER) | payer OTHER, MEDICARE ==
[~2021-12-08] VITALS: Ht 162.6 cm; Wt 94.8 kg
== END 2021-12-08 15:00 | disposition home or self-care (01) ==
LOC: ER 13:31
DX: T83.021A Displacement of indwelling urethral catheter, initial encounter (principal); N13.30 Unspecified hydronephrosis; I10 Essential (primary) hypertension; E11.9 Type 2 diabetes mellitus without complications; Y84.6 Urinary catheterization as the cause of abnormal reaction of the patient, or of later complication, without mention of misadventure at the time of the procedure; Z79.4 Long term (current) use of insulin; Z79.899 Other long term (current) drug therapy; Z85.3 Personal history of malignant neoplasm of breast

== ENCOUNTER → 2021-12-29 | Outpatient (CLI) | payer OTHER, MEDICARE | LOC: RAD 10:17 | PROVIDERS: ATTEND Family Medicine Adult Medicine | DX: Z01.810 Encounter for preprocedural cardiovascular examination (principal); Z01.811 Encounter for preprocedural respiratory examination | CPT/HCPCS: 71046; 93005; 93306 ==

== ENCOUNTER 2022-02-02 14:44 | Outpatient (RCR) | payer OTHER, MEDICARE ==
[2022-01-24 13:03] LABS: BASOPHILS % 0.1 % (0.0-1.0); EOSINOPHILS # (AUTO) 0.1 (0.0-0.4); EOSINOPHILS % 1.5 % (0.0-6.0); HEMATOCRIT 28.6 % (34.2-44.1); HEMOGLOBIN 8.7 g/dL (12.0-16.0); LYMPHOCYTES % 25.6 % (18.0-39.1); MEAN CORPUSCULAR HEMOGLOBIN 22.5 pg (28-32); MEAN CORPUSCULAR HGB CONC 30.4 g/dL (31-35); MEAN CORPUSCULAR VOLUME 74.1 fL (81-99); MONOCYTES # (AUTO) 0.5 (0.2-0.8); MONOCYTES % 6.8 % (4.4-11.3); NEUTROPHILS # (AUTO) 5.2 (2.1-6.9); NEUTROPHILS % 65.2 % (38.7-80.0); PLATELET COUNT 238 x10e3/uL (140-360); RED BLOOD COUNT 3.86 x10e6/uL (3.6-5.1); RED CELL DISTRIBUTION WIDTH 14.7 % (11.7-14.4)
[2022-01-24 13:32] LABS: CREATININE, SERUM 1.16 mg/dL (0.57-1.11)
[~2022-02-02 14:44] MED LIST changes: +CADEXOMER IODINE 30 GM TUBE ONE; +LIDOCAINE 1% W/EPINEPHRINE 20 ML VIAL ONE; +LIDOCAINE VISC 2% SOLN 15 ML UDC ONE; +LIDOCAINE/PRILOCAINE 2.5-2.5% KIT ONE
[2022-02-02] MEDS ORDERED: LIDOCAINE VISC 2% SOLN 15 ML UDC ONE (16:44)
== END 2022-02-08 ==
LOC: WCC 14:44
PROVIDERS: ATTEND Podiatrist
DX: E11.621 Type 2 diabetes mellitus with foot ulcer (principal); A48.0 Gas gangrene; M86.171 Other acute osteomyelitis, right ankle and foot; L97.514 Non-pressure chronic ulcer of other part of right foot with necrosis of bone; L03.115 Cellulitis of right lower limb; I82.4Z1 Acute embolism and thrombosis of unspecified deep veins of right distal lower extremity; R60.0 Localized edema; I73.89 Other specified peripheral vascular diseases; B96.89 Other specified bacterial agents as the cause of diseases classified elsewhere; N18.30 Chronic kidney disease, stage 3 unspecified; I10 Essential (primary) hypertension; G90.09 Other idiopathic peripheral autonomic neuropathy; D50.8 Other iron deficiency anemias; N13.30 Unspecified hydronephrosis; F31.9 Bipolar disorder, unspecified; M79.7 Fibromyalgia; R32 Unspecified urinary incontinence; Z01.810 Encounter for preprocedural cardiovascular examination; Z01.811 Encounter for preprocedural respiratory examination; Z85.3 Personal history of malignant neoplasm of breast
CPT/HCPCS: 11042 ×2; 11043; 11044; 17250; 36415 ×4; 82565; 82948 ×4; 84520; 85025; 88305; 88311; 99211; 99213 ×6; G0277 ×3; 88304

== ENCOUNTER 2022-05-04 16:50 | Emergency (ER) | payer MEDICARE, OTHER ==
[~2022-05-04] VITALS: Ht 162.6 cm; Wt 89.8 kg
[~2022-05-04 16:50] MED LIST changes: -CADEXOMER IODINE 30 GM TUBE ONE; -LIDOCAINE 1% W/EPINEPHRINE 20 ML VIAL ONE; -LIDOCAINE VISC 2% SOLN 15 ML UDC ONE; -LIDOCAINE/PRILOCAINE 2.5-2.5% KIT ONE
[2022-05-04] MEDS ORDERED: CEFTRIAXONE 1 GM VIAL IM ONE (19:15)
[2022-05-04] MEDS ORDERED: SODIUM CHLORIDE 0.9% 1000ML 1,000 ML IV SCH (19:30)
[2022-05-04] MEDS ORDERED: INSULIN REGULAR, HUMAN 100 UNIT/1 ML IV ONE (19:30)
[2022-05-04] MEDS ORDERED: SODIUM CHLORIDE 0.9% 1000ML 1,000 ML ONE ×2 (20:15→20:48)
[2022-05-04] MEDS ORDERED: ONDANSETRON HCL INJ 2MG/ML 2ML 2 MG/ML VIAL ONE (20:15)
[2022-05-04] MEDS ORDERED: INSULIN REGULAR, HUMAN 100 UNIT/1 ML ONE (20:15)
[2022-05-04] MEDS ORDERED: SODIUM CHLORIDE 0.9% 1000ML 1,000 ML IV ONE (21:45)
[2022-05-04] MEDS ORDERED: CEFUROXIME500 MG PO (22:09)
[2022-05-04] MEDS ORDERED: ONDANSETRON ODT4 MG PO (22:10)
== END 2022-05-04 22:27 | disposition home or self-care (01) ==
LOC: FSED 17:00
DX: R35.0 Frequency of micturition (principal); N39.0 Urinary tract infection, site not specified; E11.65 Type 2 diabetes mellitus with hyperglycemia; N28.9 Disorder of kidney and ureter, unspecified; N31.9 Neuromuscular dysfunction of bladder, unspecified; I10 Essential (primary) hypertension
CPT/HCPCS: 36415; 80053; 81003; 82948; 85025; 87086; 99283; J0696; J1817; J2405; J7030

== ENCOUNTER 2022-05-31 16:19 | Inpatient (IN) | payer MEDICARE, OTHER ==
[~2022-05-31] VITALS: Ht 162.6 cm; Wt 89.8 kg
[~2022-05-31 16:19] MED LIST changes: +CEFUROXIME500 MG PO; +ONDANSETRON ODT4 MG PO
[2022-05-31] MEDS ORDERED: ACETAMINOPHEN 325 MG TAB PO ONE (17:00)
[2022-05-31 17:01] LABS: BASOPHILS % 0.2 % (0.0-1.0); EOSINOPHILS # (AUTO) 0.1 (0.0-0.4); EOSINOPHILS % 0.7 % (0.0-6.0); HEMATOCRIT 29.3 % (34.2-44.1); HEMOGLOBIN 8.8 g/dL (12.0-16.0); LYMPHOCYTES # (AUTO) 2.1 (1.0-3.2); LYMPHOCYTES % 16.4 % (18.0-39.1); MEAN CORPUSCULAR HEMOGLOBIN 21.1 pg (28-32); MEAN CORPUSCULAR VOLUME 70.1 fL (81-99); MONOCYTES # (AUTO) 0.9 (0.2-0.8); NEUTROPHILS # (AUTO) 9.4 (2.1-6.9); NEUTROPHILS % 74.9 % (38.7-80.0); PLATELET COUNT 314 x10e3/uL (140-360); RED BLOOD COUNT 4.18 x10e6/uL (3.6-5.1); RED CELL DISTRIBUTION WIDTH 12.9 % (11.7-14.4)
[2022-05-31] MEDS ORDERED: KETOROLAC TROMETHAMINE 30 MG/ML VIAL IV STA (17:06)
[2022-05-31 17:10] LABS: INR 1.02; PROTHROMBIN TIME 14.3 seconds (11.9-14.5)
[2022-05-31 17:13] LABS: CLARITY,URINE HAZY (CLEAR); COLOR,URINE YELLOW (YELLOW); KETONES,URINE NEGATIVE (NEGATIVE); LEUKOCYTE ESTERASE ,URINE SMALL (NEGATIVE); NITRITE,URINE NEGATIVE (NEGATIVE); PROTEIN,URINE DIPSTICK >=300 (NEGATIVE); URINE UROBILINOGEN 0.2 mg/dL (0.2 - 1)
[2022-05-31 17:22] LABS: WBC,URINE (MAN) >50 /HPF (0-5)
[2022-05-31 17:23] LABS: BACTERIA,URINE MODERATE /HPF; EPITHELIAL CELLS,URINE FEW /LPF
[2022-05-31 17:51] LABS: ALBUMIN 2.7 g/dL (3.5-5.0); ALBUMIN/GLOBULIN RATIO 0.5 (0.8-2.0); ANION GAP 16.4 mmol/L (8-16); CALCIUM 9.2 mg/dL (8.4-10.2); CREATININE, SERUM 1.61 mg/dL (0.57-1.11); POTASSIUM 4.4 mmol/L (3.5-5.1)
[2022-05-31] MEDS: ONDANSETRON HCL INJ 2MG/ML 2ML 2 MG/ML VIAL IV PRN (17:59)
[2022-05-31] MEDS ORDERED: ONDANSETRON HCL INJ 2MG/ML 2ML 2 MG/ML VIAL IV PRN (18:15)
[2022-05-31] MEDS ORDERED: SODIUM CHLORIDE 0.9% 1000ML 1,000 ML IV ONE (18:15)
[2022-05-31 21:00] VITALS: BP 142/79
[2022-05-31] MEDS: SODIUM CHLORIDE 0.9% 1000ML 1,000 ML IV SCH (22:00)
[2022-06-01] MEDS ORDERED: POLYETHYLENE GLYCOL 3350 17 GM PACK PO PRN (00:30)
[2022-06-01] MEDS ORDERED: HYDRALAZINE HCL 20 MG/ML VIAL IV PRN (00:30)
[2022-06-01] MEDS ORDERED: ACETAMINOPHEN 325 MG TAB PO PRN (00:30)
[2022-06-01] MEDS: Morphine 4mg INJECTION 4 MG/ML INJ IV PRN ×3 (04:40→20:45)
[2022-06-01] MEDS: SODIUM CHLORIDE 0.9% 1000ML 1,000 ML IV SCH ×3 (04:41→19:14)
[2022-06-01] MEDS: ONDANSETRON HCL INJ 2MG/ML 2ML 2 MG/ML VIAL IV PRN ×3 (04:41→20:44)
[2022-06-01 06:09] VITALS: BP 140/68
[2022-06-01 07:56] LABS: CALCIUM 8.6 mg/dL (8.4-10.2); CREATININE, SERUM 1.6 mg/dL (0.57-1.11)
[2022-06-01 08:15] LABS: CHOL/HDL RATIO 5.5 (3.0-3.6)
[2022-06-01] MEDS: DOCUSATE SODIUM 100 MG CAP PO SCH ×2 (08:46→17:00)
[2022-06-01] MEDS: FAMOTIDINE 20 MG TAB PO SCH ×2 (08:46→18:30)
[2022-06-01 08:54] VITALS: BP 129/74
[2022-06-01 12:28] VITALS: BP 131/61
[2022-06-01] MEDS ORDERED: DEXTROSE 50% SYRINGE 50 ML IV PRN (15:45)
[2022-06-01] MEDS: INSULIN LISPRO 100 UNIT/1 ML 3ML VIAL SQ SCH ×2 (16:30→21:00)
[2022-06-01 16:45] VITALS: BP 153/82
[2022-06-01 20:00] VITALS: BP 168/76
[2022-06-01] MEDS: GABAPENTIN 300 MG CAP PO SCH (20:44)
[2022-06-01 21:00] VITALS: BP 168/76
[2022-06-01] MEDS ORDERED: INSULIN GLARGINE SQ SCH (21:00)
[2022-06-01] MEDS: INSULIN GLARGINE 100 UNITS/ML VIAL SQ SCH (21:00)
[2022-06-02] VITALS (7 sets, daily range): BP systolic 126–157; BP diastolic 65–89
[2022-06-02] MEDS: SODIUM CHLORIDE 0.9% 1000ML 1,000 ML IV SCH ×2 (04:00→10:15)
[2022-06-02] MEDS: ONDANSETRON HCL INJ 2MG/ML 2ML 2 MG/ML VIAL IV PRN ×2 (06:00→14:36)
[2022-06-02] MEDS: Morphine 4mg INJECTION 4 MG/ML INJ IV PRN ×2 (06:00→14:36)
[2022-06-02] MEDS: INSULIN LISPRO 100 UNIT/1 ML 3ML VIAL SQ SCH ×4 (07:30→21:00)
[2022-06-02 07:45] LABS: BASOPHILS % 0.4 % (0.0-1.0); EOSINOPHILS # (AUTO) 0.1 (0.0-0.4); EOSINOPHILS % 1.7 % (0.0-6.0); HEMATOCRIT 28.7 % (34.2-44.1); HEMOGLOBIN 8.2 g/dL (12.0-16.0); LYMPHOCYTES # (AUTO) 1.2 (1.0-3.2); LYMPHOCYTES % 16.3 % (18.0-39.1); MEAN CORPUSCULAR HEMOGLOBIN 21.2 pg (28-32); MEAN CORPUSCULAR HGB CONC 28.6 g/dL (31-35); MONOCYTES # (AUTO) 0.6 (0.2-0.8); MONOCYTES % 8.6 % (4.4-11.3); NEUTROPHILS # (AUTO) 5.2 (2.1-6.9); NEUTROPHILS % 72.2 % (38.7-80.0); PLATELET COUNT 203 x10e3/uL (140-360); RED BLOOD COUNT 3.87 x10e6/uL (3.6-5.1); RED CELL DISTRIBUTION WIDTH 13.4 % (11.7-14.4)
[2022-06-02 07:47] LABS: MEAN CORPUSCULAR VOLUME 74.2 fL (81-99)
[2022-06-02 07:54] LABS: ANION GAP 15.3 mmol/L (8-16); CALCIUM 8.6 mg/dL (8.4-10.2); CREATININE, SERUM 1.2 mg/dL (0.57-1.11); POTASSIUM 4.3 mmol/L (3.5-5.1)
[2022-06-02] MEDS: FAMOTIDINE 20 MG TAB PO SCH ×2 (09:50→17:24)
[2022-06-02] MEDS: DOCUSATE SODIUM 100 MG CAP PO SCH ×2 (09:50→17:23)
[2022-06-02] MEDS: INSULIN GLARGINE 100 UNITS/ML VIAL SQ SCH (21:00)
[2022-06-02] MEDS: GABAPENTIN 300 MG CAP PO SCH (21:14)
[2022-06-03] VITALS: BP 158/83
[2022-06-03 06:06] LABS: BASOPHILS % 0.3 % (0.0-1.0); EOSINOPHILS # (AUTO) 0.2 (0.0-0.4); EOSINOPHILS % 2.4 % (0.0-6.0); HEMATOCRIT 25.2 % (34.2-44.1); HEMOGLOBIN 7.8 g/dL (12.0-16.0); LYMPHOCYTES # (AUTO) 1.5 (1.0-3.2); MEAN CORPUSCULAR HEMOGLOBIN 21.4 pg (28-32); MONOCYTES # (AUTO) 0.5 (0.2-0.8); MONOCYTES % 7.2 % (4.4-11.3); NEUTROPHILS # (AUTO) 5.1 (2.1-6.9); NEUTROPHILS % 69.4 % (38.7-80.0); PLATELET COUNT 255 x10e3/uL (140-360); RED BLOOD COUNT 3.65 x10e6/uL (3.6-5.1)
[2022-06-03 06:30] LABS: ANION GAP 13.3 mmol/L (8-16); CALCIUM 8.7 mg/dL (8.4-10.2); CREATININE, SERUM 1.22 mg/dL (0.57-1.11); POTASSIUM 4.3 mmol/L (3.5-5.1)
[2022-06-03] MEDS: INSULIN LISPRO 100 UNIT/1 ML 3ML VIAL SQ SCH ×3 (07:30→16:30)
[2022-06-03] MEDS: FAMOTIDINE 20 MG TAB PO SCH ×2 (08:47→16:32)
[2022-06-03] MEDS: DOCUSATE SODIUM 100 MG CAP PO SCH ×2 (08:47→16:32)
[2022-06-03 09:01] VITALS: BP 158/83
[2022-06-03 09:59] VITALS: BP 164/83
[2022-06-03 13:13] VITALS: BP 136/78
[2022-06-03] MEDS ORDERED: CIPRO250 MG PO (17:57)
[2022-06-03] MEDS ORDERED: ONDANSETRON HCL 4 MG ORAL DISINTEGRATING TAB PO PRN (18:15)
[2022-06-03] MEDS ORDERED: HYDROCHLOROTHIAZIDE 25 MG TAB PO ONE (18:20)
== END 2022-06-03 18:33 | disposition home or self-care (01) | DRG 698 ==
LOC: ER 16:45 → ERHOLD 19:04 → MED/SURG2 21:17
PROVIDERS: ADMIT Internal Medicine; ATTEND Internal Medicine
DX: T83.518A Infection and inflammatory reaction due to other urinary catheter, initial encounter (principal); A41.9 Sepsis, unspecified organism; N12 Tubulo-interstitial nephritis, not specified as acute or chronic; N17.9 Acute kidney failure, unspecified; N31.9 Neuromuscular dysfunction of bladder, unspecified; E11.65 Type 2 diabetes mellitus with hyperglycemia; D64.9 Anemia, unspecified; I12.9 Hypertensive chronic kidney disease with stage 1 through stage 4 chronic kidney disease, or unspecified chronic kidney disease; N18.9 Chronic kidney disease, unspecified; Z20.822 Contact with and (suspected) exposure to COVID-19
CPT/HCPCS: 0223U; 36415; 71045; 74176; 80048; 80053; 80061; 81001; 82948; 83605; 85025; 85610; 87040; 87086; 87186; 96361; 99284; J0360; J0696; J1885; J2270; J2405; J7030

== ENCOUNTER 2022-07-17 02:29 | Emergency (ER) | payer OTHER ==
[~2022-07-17] VITALS: Ht 162.6 cm; Wt 95.3 kg
[~2022-07-17 02:29] MED LIST changes: +CIPRO250 MG PO
[2022-07-17] MEDS ORDERED: KETOROLAC TROMETHAMINE 60 MG/2 ML VIAL IM ONE (03:00)
[2022-07-17] MEDS ORDERED: KETOROLAC TROMETHAMINE 60 MG/2 ML VIAL ONE (03:15)
[2022-07-17] MEDS ORDERED: NAPROSYN500 MG PO (04:05)
[2022-07-17] MEDS ORDERED: TETANUS/DIPHTHERIA TOX ADULT 0.5 ML SYR IM ONE (04:45)
[2022-07-17 04:50] VITALS: BP 158/92
[2022-07-17] MEDS ORDERED: TETANUS/DIPHTHERIA TOX ADULT 0.5 ML SYR ONE (04:51)
[2022-07-17] MEDS ORDERED: BACITRACIN ZINC 0.9GM TP ONE ×2 (04:52→05:15)
[2022-07-17] MEDS ORDERED: BACITRACIN ZINC 15 GM OINT TOP SCH (09:00)
== END 2022-07-17 04:50 | disposition home or self-care (01) ==
LOC: FSED 02:48
DX: S80.211A Abrasion, right knee, initial encounter (principal); S70.01XA Contusion of right hip, initial encounter; I10 Essential (primary) hypertension; E11.9 Type 2 diabetes mellitus without complications; F17.200 Nicotine dependence, unspecified, uncomplicated; Z23 Encounter for immunization; W19.XXXA Unspecified fall, initial encounter; Y93.I9 Activity, other involving external motion; Y92.89 Other specified places as the place of occurrence of the external cause; Y99.8 Other external cause status; Z79.4 Long term (current) use of insulin; Z79.899 Other long term (current) drug therapy
CPT/HCPCS: 73502; 73552; 73590; 73630; 90471; 90714; 96372; 99283; J1885

== ENCOUNTER 2024-07-27 13:26 | Emergency (ER) | payer OTHER ==
[~2024-07-27] VITALS: Ht 162.6 cm; Wt 84.8 kg
[~2024-07-27 13:26] MED LIST changes: +ACETAMINOPHEN-1 EAC4 PO; +AMLODIPINE BESYL5 MG PO; -HYDROCHLOROTH12.5 MG; +HYDROCHLOROTH12.5 MG PO; +NAPROSYN500 MG PO; +TAMIFLU75 MG PO; +TYLENOL325 MG PO; +ULTRAM 50MG50 MG PO; +crutches
[2024-07-27 14:00] LABS: BASOPHILS # (AUTO) 0.1 (0.0-0.1); BASOPHILS % 0.4 % (0.0-1.0); EOSINOPHILS # (AUTO) 0.3 (0.0-0.4); EOSINOPHILS % 2.5 % (0.0-6.0); HEMATOCRIT 27.6 % (34.2-44.1); LYMPHOCYTES # (AUTO) 1.7 (1.0-3.2); MEAN CORPUSCULAR HEMOGLOBIN 21.9 pg (28-32); MEAN CORPUSCULAR VOLUME 75.6 fL (81-99); MONOCYTES # (AUTO) 0.8 (0.2-0.8); MONOCYTES % 6.7 % (4.4-11.3); NEUTROPHILS # (AUTO) 8.7 (2.1-6.9); NEUTROPHILS % 75.1 % (38.7-80.0); PLATELET COUNT 321 x10e3/uL (140-360); RED BLOOD COUNT 3.65 x10e6/uL (3.6-5.1); RED CELL DISTRIBUTION WIDTH 17.4 % (11.7-14.4); WHITE BLOOD COUNT 11.56 x10e3/uL (4.8-10.8)
[2024-07-27 14:07] LABS: INR 1.14; PROTHROMBIN TIME 15.3 seconds (11.9-14.5)
[2024-07-27 14:08] LABS: PARTIAL THROMBOPLASTIN TIME 26.1 seconds (23.8-35.5)
[2024-07-27 14:16] LABS: ALBUMIN 2.4 g/dL (3.5-5.0); ALBUMIN/GLOBULIN RATIO 0.4 (0.8-2.0); ALKALINE PHOSPHATASE 137 IU/L (40-150); ANION GAP 14.7 mmol/L (8-16); BILIRUBIN,TOTAL 0.2 mg/dL (0.2-1.2); BLOOD UREA NITROGEN 26 mg/dL (7-26); BUN/CREATININE RATIO 10 (6-25); CARBON DIOXIDE 21 mmol/L (22-29); CHLORIDE 107 mmol/L (98-107); CREATININE, SERUM 2.52 mg/dL (0.57-1.11); EST GLOMERULAR FILTRATION RATE 23 ML/MIN (>=60); GLUCOSE 110 mg/dL (74-118); POTASSIUM 4.7 mmol/L (3.5-5.1); SODIUM 138 mmol/L (136-145); TOTAL PROTEIN 8.3 g/dL (6.5-8.1)
[2024-07-27 14:18] LABS: ALANINE AMINOTRANSFERASE < 6 IU/L (0-55)
[2024-07-27] MEDS: Vancomycin IV 1 GM in SODIUM CHLORIDE 0.9% 250ML 250 ML IV SCH (18:33)
[2024-07-27 18:37] VITALS: PULSE 102; RESP 18; TEMP 99.5
[2024-07-27 20:36] VITALS: BP 179/88; O2SAT 100
== END 2024-07-27 20:37 | disposition short-term general hospital (02) ==
LOC: ER 13:29
DX: A41.9 Sepsis, unspecified organism (principal); E11.621 Type 2 diabetes mellitus with foot ulcer; L08.9 Local infection of the skin and subcutaneous tissue, unspecified; I10 Essential (primary) hypertension; N31.9 Neuromuscular dysfunction of bladder, unspecified; Z85.3 Personal history of malignant neoplasm of breast
CPT/HCPCS: 36415; 71045; 73630; 80053; 83605; 84702; 85025; 85610; 85730; 87040; 93971; 99284; J2543; J3370; J7050